=== PATIENT | male | born 1945 | race Caucasian/White ===

== ENCOUNTER 2018-04-11 14:21 | Inpatient (IN) ==
--- OUTSIDE RECORDS SUMMARY | 2018-04-11 14:51 | External Medical Summary | Clinical Summary ---
:1945 Author Organization [facility] Address [address] [place] [address] Care Team Providers Name Role Phone Zachariah Weiss MD Primary Care Provider Source Comments Some departments are not documenting in the electronic medical record. If you do not see the information that you expected, contact Release of Information in the Health Information Management department at [phone] for further assistance in locating additional records.[facility] Allergies Active Allergy Reactions Severity Noted Date Comments Adhesive RASH Medium 05/11/2017 Latex RASH, BLISTERS High 05/11/2017 Morphine ITCHING Low 05/11/2017 Tramadol SEE COMMENTS Low 05/11/2017 can't remember Current Medications Prescription Sig. Disp. Refills Start Date End Date Status baclofen (LIORESAL) 10 Take 10 mg by Active mg tablet mouth three times daily. bumetanide (BUMEX) 1 mg Take 1 mg by Active tablet mouth daily. cephalexin (KEFLEX) 250 Take 250 mg by Active mg capsule mouth daily. citalopram (CELEXA) 20 Take 20 mg by Active mg tablet mouth daily. ferrous sulfate Take 325 mg by Active (FEOSOL, FEROSUL) 325 mouth twice mg (65 mg iron) tablet daily. Take on an empty stomach at least 1 hour before or 2 hours after food. fluticasone (FLONASE) Apply to each Active 50 mcg/actuation nasal nostril as spray directed twice daily. Shake bottle gently before using. gabapentin (NEURONTIN) Take 300 mg by Active 300 mg capsule mouth at bedtime daily. gabapentin (NEURONTIN) Take 600 mg by Active 600 mg tablet mouth at bedtime daily. polyethylene glycol Take 17 g by Active 3350 (MIRALAX) 17 g mouth daily. packet other medication 1 Dose. GNP one Active daily mens w/lycopene HYDROcodone/acetaminoph Take 1 tablet by Active en (NORCO) 7.5/325 mg mouth every 6 tablet hours as needed for Pain levothyroxine Take 50 mcg by Active (SYNTHROID) 50 mcg mouth daily 30 tablet minutes before breakfast. metoprolol XL (TOPROL Take 25 mg by Active XL) 25 mg extended mouth twice release tablet daily. omeprazole DR(+) Take 20 mg by Active (PRILOSEC) 20 mg mouth daily capsule before breakfast. simvastatin (ZOCOR) 10 Take 10 mg by Active mg tablet mouth at bedtime daily. tamsulosin (FLOMAX) 0.4 Take 0.4 mg by Active mg capsule mouth daily. Do not crush, chew or open capsules. Take 30 minutes following the same meal each day. tolterodine(+) (DETROL) Take 2 mg by Active 2 mg tablet mouth twice daily. venlafaxine XR (EFFEXOR Take 75 mg by Active XR) 75 mg capsule mouth twice daily. Take with food. ERGOCALCIFEROL (VITAMIN Take by mouth. Active D2) (VITAMIN D PO) cholecalciferol Take 1,000 Units Active (VITAMIN D-3) 1,000 by mouth daily. units tablet warfarin (COUMADIN) 2 Take 2 mg by Active mg tablet mouth daily. wednesday warfarin (COUMADIN) 4 Take 4 mg by Active mg tablet mouth daily. Wed,wed,,wed, sat clonazePAM (KLONOPIN) 1 2 at bedtime 60 tablet 5 06/10/2017 Active mg tablet Active Problems Problem Noted Date Drug-induced dyskinesia 05/11/2017 Overview: This is a metoclopramide induced tardive dyskinesia, he had been on this medication for many years prior to be it being discontinued in 2016. Last Assessment & Plan: Formatting of this note may be different from the original. I discussed the diagnosis with the patient and his , explaining how medications that block dopamine can cause tardive dyskinesias, and the utility of treatments such as clonazepam and valbenazine (INGREZZA) along with potential side effects. While baclofen will not help his TD, he needs this for treatment of his spasticity. I suggest that because of the expense of valbenazine that his dose of clonazepam be increased to the point where he has either good benefit or unacceptable drowsiness before starting valbenazine at 40 m g a day for one week and then 80 mg a day thereafter. 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 He will follow-up with his health care providers closer to their home. Encounter Medications Medications baclofen (LIORESAL) 10 mg tablet Sig: Take 10 mg by mouth three times daily. bumetanide (BUMEX) 1 mg tablet Sig: Take 1 mg by mouth daily. cephalexin (KEFLEX) 250 mg capsule Sig: Take 250 mg by mouth daily. citalopram (CELEXA) 20 mg tablet Sig: Take 20 mg by mouth daily. DISCONTD: clonazePAM (KLONOPIN) 1 mg tablet Sig: Take 1 mg by mouth twice daily. Two hs ferrous sulfate (FEOSOL, FEROSUL) 325 mg (65 mg iron) tablet Sig: Take 325 mg by mouth twice daily. Take on an empty stomach at least 1 hour before or 2 hours after food. fluticasone (FLONASE) 50 mcg/actuation nasal spray Sig: Apply to each nostril as directed twice daily. Shake bottle gently before using. gabapentin (NEURONTIN) 300 mg capsule Sig: Take 300 mg by mouth at bedtime daily. gabapentin (NEURONTIN) 600 mg tablet Sig: Take 600 mg by mouth at bedtime daily. polyethylene glycol 3350 (MIRALAX) 17 g packet Sig: Take 17 g by mouth daily. other medication Si Dose. GNP one daily mens w/lycopene HYDROcodone/acetaminophen (NORCO) 7.5/325 mg tablet Sig: Take 1 tablet by mouth every 6 hours as needed for Pain levothyroxine (SYNTHROID) 50 mcg tablet Sig: Take 50 mcg by mouth daily 30 minutes before breakfast. metoprolol XL (TOPROL XL) 25 mg extended release tablet Sig: Take 25 mg by mouth twice daily. omeprazole DR(+) (PRILOSEC) 20 mg capsule Sig: Take 20 mg by mouth daily before breakfast. simvastatin (ZOCOR) 10 mg tablet Sig: Take 10 mg by mouth at bedtime daily. tamsulosin (FLOMAX) 0.4 mg capsule Sig: Take 0.4 mg by mouth daily. Do not crush, chew or open capsules. Take 30 minutes following the same meal each day. tolterodine(+) (DETROL) 2 mg tablet Sig: Take 2 mg by mouth twice daily. venlafaxine XR (EFFEXOR XR) 75 mg capsule Sig: Take 75 mg by mouth twice daily. Take with food. ERGOCALCIFEROL (VITAMIN D2) (VITAMIN D PO) Sig: Take by mouth. cholecalciferol (VITAMIN D-3) 1,000 units tablet Sig: Take 1,000 Units by mouth daily. warfarin (COUMADIN) 2 mg tablet Sig: Take 2 mg by mouth daily. wednesday warfarin (COUMADIN) 4 mg tablet Sig: Take 4 mg by mouth daily. Wed,wed,,wed,wed clonazePAM (KLONOPIN) 1 mg tablet Si/2 in the morning and 1 at bedtime Dispense: 45 tablet Refill: 5 Patient Instructions Please increase his clonazepam to 1/2 of a one mg pill in the morning and 1 in the evening. We will call in the prescription to your pharmacy I will send a letter to his doctors and to you about the other medication, valbenazine (INGREZZA), georger we discussed. Lumbar spondylosis with myelopathy 05/11/2017 Overview: Fusion T4 to pelvis in 2012 Last Assessment & Plan: His leg weakness is partially due to this. 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 No medical records were available for review at the time of this visit. He was admitted 18 month prior to this visit to [facility] for treatment of hyponatremia and there was some apparent controversy over the rate and method of correction. This was one of several admissions for hyponatremia. At that admission the movements began and he had increasing difficulty with the use of his hands and legs. Moderate episode of recurrent major depressive disorder (HCC) 05/11/2017 Family History Medical History Relation Name Comments Hypertension Father Dementia Maternal Aunt Hypertension Maternal Aunt Dementia Maternal Grandfather Dementia Mother Hypertension Mother Stroke Mother Parkinson's Sister Relation Name Status Comments Brother Alive Father Maternal Aunt Alive Maternal Grandfather Mother Sister Social History Tobacco Use Types Packs/Day Years Used Date Never Smoker Smokeless Tobacco: Never Used Alcohol Use Drinks/Week oz/Week Comments No Sex Assigned at Date Recorded Not on file Last Filed Vital Signs Vital Sign Reading Time Taken Blood Pressure 157/81 05/11/2017 8:42 AM CDT Pulse 61 05/11/2017 8:42 AM CDT Temperature - - Respiratory Rate - - Oxygen Saturation - - Inhaled Oxygen Concentration - - Weight 104.3 kg (230 lb) 05/11/2017 8:42 AM CDT Height 165.1 cm (5' 5") 05/11/2017 8:42 AM CDT Body Mass Index 38.27 05/11/2017 8:42 AM CDT Plan of Treatment Health Maintenance Due Date Last Done Comments HEPATITIS C SCREENING 1945 PHYSICAL (COMPREHENSIVE) EXAM 1954 PERTUSSIS VACCINE 1958 TETANUS VACCINE 01/12/1964 COLORECTAL CANCER SCREENING 1997 SHINGLES RECOMBINANT VACCINE (1 of 2) 1997 PNEUMONIA (PCV13/PPSV23) VACCINES (1 of 2 - PCV13) 01/12/2012 INFLUENZA VACCINE 06/20/2018
--- OUTSIDE RECORDS SUMMARY | 2018-04-11 14:58 | External Medical Summary ---
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 220124393052 disease), mild intermittent, uncomplicated Problem Unspecified asthma, J45.909 Active 988983225 uncomplicated Problem Raynauds disease I73.00 Active 567503415 without gangrene Problem Dysuria 788.1 Active 50273607 Problem Essential hypertension I10 Active 86893868 Problem Diabetes 1.5, 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 Problem Unspecified atrial I48.91 Active 608370411 fibrillation Problem DDD (degenerative disc M50.30 Active 58969284 disease), cervical Problem Renal insufficiency N28.9 Active 867155275 Problem halfway current use Z79.01 Active 332653038 of anticoagulant therapy Problem Hypothyroidism, E03.9 Active 80408618 unspecified Problem Depressive disorder, F32.9 Active 23905944 not elsewhere classified ALLERGIES No Information ENCOUNTERS Encounter Location Date Diagnosis [facility] [address], [facility] [place] [address] [facility] [address], [facility] [place] [address] [facility] [address] Mar, [facility] [place] [address] [facility] [address] Feb, [facility] [place] [address] [place] [address] [address] Feb, [facility] [place] [address] [place] [address] [address] Feb, [facility] [place] [address] [place] [address] [address] Feb, [facility] [place] [place] [address] [place] [address] [address] Feb, [facility] [place] [place] [address] [place] [address] [address] Feb, [facility] [place] [place] [address] [place] [address] [address] Feb, [facility] [place] [address] [place] [address] [address] Feb, [facility] [place] [id number] [place] [address] [address] Feb, [facility] [place] [address] [facility] [address] Feb, [facility] [place] [address] [place] [address] [address] Feb, [facility] [place] [id number] [place] [address] [address] Feb, [facility] [place] [place] [address] [place] [address] [address] January, [facility] [place] [id number] [place] [address] [address] January, [facility] [place] [id number] [place] [address] [address] January, [facility] [place] [place] [address] [place] [address] [address] January, [facility] [place] [address] [place] [address] [address] January, [facility] [place] [address] [facility] [address] January, Cellulitis of foot, right [facility] [place] 23367 L03.115 ; Diabetes 1.5, managed as type 1 E13.9 ; Renal insufficiency N28.9 and Hypothyroidism, unspecified E03.9 [facility] [address] January, [facility] [place] [address] [facility] [address] January, [facility] [place] [address]1403 [facility] [address] January, [facility] [place] [address] [facility] [address] January, Contusion of right foot, [facility] [place]212 initial encounter S90.31XA [facility] [address] January, [facility] [place] [address] [place] [address] [address] January, [facility] [place] [address] [place] [address] [address] Dec, [facility] [place] [address] [place] [address] [address] Dec, [facility] [place] [address] [place] [address] [address] Dec, [facility] [place] [place] [address] [place] [address] [address] Dec, [facility] [place] [address] [facility] [address] Dec, [facility] [place] [place] [address] [place] [address] [address] Dec, [facility] [place] [place] [address] [place] [address] [address] Dec, [facility] [place] [place] [address] [place] [address] [address] Dec, [facility] [place] [place] [address] [place] [address] [address] Dec, [facility] [place] [place] [address] [place] [address] [address] Nov, [facility] [place] [address] [place] [address] [address] Nov, Hyponatremia E87.1 [facility] [address] [place] [address] [address] Nov, [facility] [place] [place] [address] [place] [address] [address] Nov, [facility] [place] [place] [address] [place] [address] [address] Nov, [facility] [place] [address]5828 [facility] [address] 14 Nov, 2017 [facility] [place] [place] [address] [facility] [address] Nov, [facility] [place] [address] [place] [address] [address] Nov, Encounter for long-term [facility] [place] 87568 (current) use of anticoagulants V58.61 [facility] [address] 06 Nov, 2017 [facility] [place] [address] [place] [address] [address] Nov, [facility] [place] [id number] [place] [address] [address] Nov, [facility] [place] [address] [place] [address] [address] Oct, Urethral catheter present for [facility] [place]212 long-term use Z96.0 ; Upper respiratory tract infection, unspecified type J06.9 and Diabetes 1.5, managed as type 1 E13.9 [facility] [address] Oct, [facility] [place] [address] [facility] [address] Oct, [facility] [place] 230[address] [facility] [address] Oct, Encounter for long-term [facility] [place] [address]482 (current) use of anticoagulants V58.61 [facility] [address] Oct, [facility] [place] [address] [place] [address] [address] Oct, [facility] [place] [address] [facility] [address] Oct, [facility] [place] [address] [facility] [address] Sep, [facility] [place] [address] [facility] [address] Sep, [facility] [place] [address]80 [facility] [address] Sep, [facility] [address] [facility] [address] Sep, [facility] [place] [address] [facility] [address] Sep, [facility] [place] [address] [facility] [address] Sep, [facility] [place] [address] [facility] [address] Sep, [facility] [place] [address] [facility] [address] Sep, [facility] [place] [facility] [address] Sep, [facility] [place] [address] [facility] [address] Sep, [facility] [place]212 [facility] [address] Aug, [facility] [place] [address] [facility] [address] Aug, [facility] [place] [id number] [place] [address]ta Family [address] Aug, [facility] [place] [address] [place], [place] [address]ta Family [address] Aug, [facility] [place] [address] [place] [address] Family [address] Aug, [facility] [place] [id number] [place] [address]ta Family [address] Aug, [facility] [place] [facility] [address] Aug, [facility] [place] [address]23[address] [facility] [address] Jul, [facility] [place] [address]1501 [facility] [address] Jul, [facility] [place] 59608 [facility] [address] Jul, [facility] [place] 30823 [facility] [address] Jul, [facility] [place] 79087 [facility] [address] Jul, [facility] [place] [address]77 [facility] [address] Jun, Shortness of breath R06.02 and [facility] [place] [address] 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 [facility] [address] Jun, [facility] [place] [address] [facility] [address] Jun, [facility] [place] [address]94 [facility] [address] Jun, [facility] [place]212 [facility] [address] Jun, [facility] [place] 71759 [facility] [address] Jun, [facility] [place] [place] [facility] [address] Jun, [facility] [place] [facility] [address] Jun, [facility] [place]212 [facility] [address] Jun, [facility] [place] [facility] [address] Jun, [facility] [place] [id number] [place] [address] Family [address] May, [facility] [place] [address] [place] [address] [address] May, [facility] [place] [address] [place] [address] [address] May, Edema, unspecified type R60.9 [facility] [place] [place] [address]85 and Hyponatremia E87.1 [facility] [address] May, [facility] [place] [address] [place] [address] [address] May, [facility] [place] [address] [place] [address] [address] May, [facility] [place] [address] [place] [address] [address] May, [facility] [place] [address] [place] [address] [address] May, [facility] [place] [address] [facility] [address] May, [facility] [place] [address] [place] [address] [address] May, [facility] [place] [address] [place] [address] [address] 18 May, 2017 [facility] [place] [address] [facility] [address] 13 May, 2017 [facility] [place] [address] [place] [address] [address] May, [facility] [place] [address] [place] [address] [address] May, [facility] [place] [address] [facility] [address] May, [facility] [place]212 [facility] [address] Apr, [facility] [place] [address] [facility] [address] Apr, [facility] [place]212 [facility] [address] Apr, [facility] [place]212 [facility] [address] Apr, Paraplegia following spinal [facility] [place]212 cord injury G82.20 ; DDD (degenerative disc disease), cervical M50.30 and Diabetes 1.5, managed as type 1 E13.9 [facility] [address] Apr, [facility] [place] [id number] [place], [place] [address] [address] Apr, [facility] [place] [address] [place], [place] [address] [address] Apr, [facility] [place] [id number] [place], [place] [address] [address] Apr, [facility] [place] [address] [place], [place] [address] [address] Apr, [facility] [place] [address] [place], [place] [address] [address] Apr, [facility] [place] [id number] [place], [place] [address]ta Family [address] Apr, [facility] [place] [address] [place], [place] [address]ta Family [address] Apr, [facility] [place] [id number] [place] [address]ta [facility] [address] Mar, [facility] [place] [id number] [place] [address] [address] Mar, [facility] [place] [address] [place] [address] [address] Mar, [facility] [place] [address] [place], [place] [address] [address] Mar, [facility] [place] [id number] [place] [address]ta [facility] [address] Mar, [facility] [place] [id number] [place] [address] Family [address] Mar, [facility] [place] [id number] [place] [address]ta Family [address] Feb, [facility] [place] [id number] [place] [address]ta Family [address] Feb, [facility] [place] [place], [place] [address] [address] Feb, [facility] [place]212 [facility] [address] Feb, [facility] [place]212 [facility] [address] Feb, [facility] [place] [facility] [address] Feb, [facility] [place] [facility] [address] Feb, [place] [address] [facility] [address] January, [facility] [place] [address]474 [facility] [address] January, [facility] [place] [address] [facility] [address] January, [facility] [place] 58486 [facility] [address] January, [facility] [place] 15981 [facility] [address] January, [facility] [place] 46455 [facility] [address] January, [facility] [place] 33793 [facility] [address] Dec, [facility] [place] 31943 [facility] [address] Dec, [facility] [place] 84428 [facility] [address] Dec, [facility] [place] 15585 [facility] [address] Dec, [facility] [place] 33399 [facility] [address] Dec, [facility] [place] 84203 [facility] [address] Dec, [facility] [place] 66593 [facility] [address] Nov, [facility] [place] 42132 [facility] [address] Nov, [facility] [place] 49459 [facility] [address] Nov, [facility] [place] 69919 [facility] [address] Nov, [facility] [place] 90576 [facility] [address] Nov, [facility] [place] 39058 [facility] [address] Nov, [facility] [place] 37512 [facility] [address] Nov, [facility] [place] 85427 [facility] [address] Nov, [facility] [place] 20840 [facility] [address] Oct, [facility] [place] 72871 [facility] [address] Oct, [place] [address] [place] [address] [address] Oct, [facility] [place] [id number] [place] [address] [address] Oct, [facility] [place] [address] [place] [address] [address] Oct, [facility] [place] [address] [place] [address] [address] Oct, [facility] [place] [address] [place] [address] [address] Oct, [facility] [place] [address] [place] [address] [address] Oct, Bronchitis J40 and RAD [facility] [place] 80044 (reactive airway disease), mild intermittent, uncomplicated J45.20 [facility] [address] Oct, [facility] [place] [address] [place] [address] [address] Oct, [facility] [place] [id number] [place] [address] [address] Sep, [facility] [place] [address] [place] [address] [address] Sep, [facility] [place] [address] [place] [address] [address] Sep, [facility] [place] 19455 [facility] [address] Sep, [facility] [place] [address] [place] [address] [address] Sep, [facility] [place] [id number] [place] [address] [address] Sep, [facility] [place] 78716 [facility] [address] Aug, [facility] [place] 02934 [facility] [address] Aug, [facility] [place] 61062 [facility] [address] Aug, [facility] [place] 45025 [facility] [address] Aug, [facility] [place] 84080 [facility] [address] Aug, [facility] [place] 62824 [facility] [address] Aug, Near syncope R55 and Diabetes [facility] [place] 1.5, managed as type 1 E13.9 [facility] [address] Aug, [facility] [place] 61910 [facility] [address] Aug, [facility] [place] 74033 [facility] [address] Aug, [facility] [place] [id number] [place], [place] [address] [address] Aug, [facility] [place] [id number] [place] [address] [address] Aug, [facility] [place] [id number] [place] [address]ta Family [address] Aug, [facility] [place] [id number] [place] [address] [facility] [address] Aug, [facility] [place] [id number] [place], [place] [address] [address] Jul, [facility] [place] [id number] [place] [address] [address] Jul, [facility] [place] [id number] [place] [address] [address] Jul, [facility] [place] [address] [place] [address] [address] Jul, [facility] [place] [id number] [place] [address] [address] Jul, [facility] [place] [id number] [place] [address] [address] Jul, [facility] [place] [address] [place] [address]ta Family [address] Jul, [facility] [place] [id number] [place] [address] [address] 16 Jul, 2016 [facility] [place] [id number] [place], [place] [address] [address] 15 Jul, 2016 [facility] [place] [address] [place], [place] [address] [address] Jul, [facility] [place] [address] [place] [address] [address] Jul, [facility] [place] [id number] [place] [address] [address] Jul, [facility] [place] [id number] [place] [address] [address] Jul, [facility] [place] [id number] [place] [address] [address] Jul, [facility] [place] [id number] [place] [address]ta Family [address] Jul, [facility] [place] 23201 [facility] [address] Jul, 2015 [facility] [place] 30961 [facility] [address] Jul, [facility] [place] 16292 [facility] [address] Jul, [facility] [place] [id number] [place] [address] [address] Jun, 2015 [facility] [place] 95069 [facility] [address] Jun, 2016 [facility] [place] 90534 [facility] [address] Jun, 2015 [facility] [place] 93688 [facility] [address] Jun, 2015 [facility] [place] 26308 [facility] [address] 14 Jun, 2015 [facility] [place] 72109 [facility] [address] Jun, 2015 [facility] [place] 87031 [facility] [address] Jun, 2015 [facility] [place] 10977[facility] [address] 30 May, 2016 [facility] [place] 51021 [facility] [address] 30 May, 2016 [facility] [place] 71003 [facility] [address] 23 May, 2016 [facility] [place] [id number] [place], [place] [address] [address] 22 May, 2016 [facility] [place] [id number] [place] [address] [address] May, 2016 [facility] [place] 31075 [facility] [address] 20 May, 2016 [facility] [place] 43527 [facility] [address] 16 May, 2016 [facility] [place] 30815 [facility] [address] 09 May, 2016 [facility] [place] 17609 [facility] [address] 07 May, 2016 [facility] [place] 30432 [facility] [address] 06 May, 2016 [facility] [place] 44373 [facility] [address] May, [address] [place] [address]ta [facility] [address] May, [facility] [place] 53089 [facility] [address] May, [facility] [place] 69863 [facility] [address] May, [facility] [place] [id number] [place] [address] Family [address] Apr, [facility] [place] [id number] [place] [address] Family [address] Apr, [facility] [place] [id number] [place] [address] Family [address] Apr, [facility] [place] [id number] [place] [address] Family [address] Apr, [facility] [place] 44119 [facility] [address] Apr, Encounter for long-term [facility] [place] 81374 (current) use of anticoagulants V58.61 and Abnormal laboratory test R89.9 [facility] [address] Apr, [facility] [place] 09010 [facility] [address] Apr, [facility] [place] 02573 [facility] [address] Apr, [facility] [place] 00149 [facility] [address] Apr, [facility] [place] 40982 [facility] [address] Apr, Phys[facility] [place] 59174 [facility] [address] Apr, [facility] [place] 58366 [facility] [address] Apr, [facility] [place] 33256 [facility] [address] Apr, [facility] [place] 75337 [facility] [address] Mar, [facility] [place] 46317 [facility] [address] Mar, [facility] [place] 63545 [facility] [address] Mar, [facility] [place] 52987 [facility] [address] Mar, [facility] [place] 09576 [facility] [address] Mar, [facility] [place] [facility] [address] Mar, [facility] [place] [id number] [place] [address] [address] Mar, [facility] [place] [id number] [place] [address]ta Family [address] Mar, Paraplegia following spinal [facility] [place] 38107 cord injury G82.20 ; Essential hypertension I10 ; Unspecified atrial fibrillation I48.91 and Diabetes 1.5, managed as type 1 E13.9 [facility] [address] Mar, [facility] [place] [id number] [place] [address]ta Family [address] Feb, [facility] [place] [id number] [place] [address]ta Family [address] Feb, [facility] [place] 51239 [facility] [address] Feb, [facility] [place] [id number] [place] [address] Family [address] Feb, [facility] [place] 33927 [facility] [address] Feb, [facility] [place] [id number] [place] [address]ch[facility] [address] Feb, [facility] [place] [id number] [place] [address] Family [address] Feb, [facility] [place] [id number] [place] [address]ta Family [address] Feb, [facility] [place] [id number] [place] [address] Family [address] Feb, [facility] [place] [id number] [place] [address] Family [address] Feb, [facility] [place] [id number] [place], [place] [address] [address] Feb, [facility] [place] 76904 [facility] [address] Feb, [facility] [place] 19549 [facility] [address] Feb, [facility] [place] 49485 [facility] [address] Feb, [facility] [place] 92864 [facility] [address] January, [facility] [place] 37227 [facility] [address] January, [facility] [place] [facility] [address] January, [facility] [place] 17877 [facility] [address] January, [facility] [place] 69641 [facility] [address] January, [facility] [place] 21490 [facility] [address] January, [facility] [place] 96998 [facility] [address] January, [facility] [place] 72584 [facility] [address] January, [facility] [place] 67701 [facility] [address] January, [facility] [place] 78146 [facility] [address] January, [facility] [place] 53692 [facility] [address] January, [facility] [place] 92235 [facility] [address] Dec, [facility] [place] 65343 [facility] [address] Dec, [facility] [place] 77388 [facility] [address] Dec, [facility] [place] 21322 [facility] [address] 15 Dec, 2015 [facility] [place] 87422 [facility] [address] Dec, [facility] [place] 36802 [facility] [address] Dec, [facility] [place] 86324 [facility] [address] Dec, [facility] [place] 36693 [facility] [address] Dec, [facility] [place] 66606 [facility] [address] Dec, Physicians [place] [address] [facility] [address] Dec, Physicians [place] [address] [facility] [address] Nov, Physicians [place] 11301 [facility] [address] Nov, Physicians [place] 76816 [facility] [address] Nov, Physicians [place]212 [facility] [address] 18 Nov, 2015 [facility] [place] 80168 [facility] [address] 15 Nov, 2015 [facility] [place] 05297 [facility] [address] 14 Nov, 2015 [facility] [place] [address]96[address] [facility] [address] Nov, 2015 [facility] [place] 75693 [facility] [address] 14 Nov, 2015 [facility] [place] 13905 [facility] [address] Nov, 2015 Physicians [place] 93337 [facility] [address] Nov, Physicians [place] 75337 [facility] [address] Nov, Physicians [place] [id number] [place] [address] [address] Nov, Physicians [place] 944[address] [address] Nov, Physicians [place] 62990 [facility] [address] Oct, 2015 Physicians [place] 14631 [facility] [address] Oct, 2015 Physicians [place] 32249 [facility] [address] Oct, 2015 [facility] [place] 66595 [facility] [address] Oct, 2015 Physicians [place] 93117 [facility] [address] Oct, 2015 Physicians [place] 65176 [facility] [address] Oct, 2015 [facility] [place] 84410 [facility] [address] Oct, 2015 [facility] [place] 39228 [facility] [address] Oct, 2015 [facility] [place] 40856 [facility] [address] Oct, 2015 Physicians [place] [id number] [place], [place] [address] [address] Oct, 2015 Physicians [place] [id number] [place], [place] [address] [address] Oct, 2015 [facility] [place] [address] [place] [address] [address] Oct, [facility] [place] [address] [place] [address] [address] Sep, [facility] [place] [address] [place] [address] [address] Sep, [facility]icians [place] [address] [place] [address] [address] Sep, DDD (degenerative disc Physicians [facility] disease), cervical M50.30 ; Diabetes 1.5, managed as type 1 E13.9 and Otitis externa H60.90 [facility] [address] Sep, Physicians [place] [address] [place] [address] [address] Sep, Physicians [place] [address] [place] [address] [address] Sep, [facility]icians [place] [address] [place] [address] [address] Sep, Physicians [place] [address] [place] [address] [address] Sep, Physicians [place] [address] [place] [address] [address] Sep, [facility]icians [place] [address] [place] [address] [address] Sep, [facility]icians [place] [address] [place] [address] [address] Sep, Physicians [place] [address] [place] [address] [address] Sep, [facility]icians [place] [address] [place] [address] [address] Sep, Physicians [place] [address] [place] [address] [address] Sep, Physicians [place] [address] [place] [address] [address] Sep, Glossitis K14.0 and Aphthous Physicians [facility] [facility] ulcer K12.0 [facility] [address] Sep, Physicians [place] [address] [place] [address] [address] Sep, Physicians [place] [address] [place] [address] [address] Sep, [facility]icians [place] [address] [place] [address] [address] Sep, [facility]icians [place] [address] [place] [address] [address] Sep, Physicians [place] [address] [place] [address] [address] Aug, Physicians [place] 45378 [facility] [address] Aug, Physicians [place] 20994 [facility] [address] Aug, Physicians [place] [address] [place] [address] [address] Aug, Physicians [place] [address] [place] [address] [address] Aug, Physicians [place] 74652 [facility] [address] Aug, Physicians [place] [address]50 [facility] [address] Aug, Diabetes 1.5, managed as type 1 Physicians [place] 13035 E13.9 ; Renal insufficiency N28.9 ; DDD (degenerative disc disease), cervical M50.30 ; Hypothyroidism, unspecified E03.9 ; long term current use of anticoagulant therapy Z79.01 ; Essential hypertension I10 ; Unspecified asthma, uncomplicated J45.909 ; Pure hypercholesterolemia E78.0 ; 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 and Depressive disorder, not elsewhere classified F32.9 [facility] [address] Jul, Physicians [place] 46728 [facility] [address] Jul, Physicians [place] 46222 [facility] [address] Jul, Physicians [place] 96461 [facility] [address] Jul, Physicians [place] 63571 [facility] [address] Jun, Physicians [place] 71070 [facility] [address] Jun, Physicians [place]212 [facility] [address] Jun, Physicians [place] 24424 [facility] [address] Jun, Physicians [place] 28276 [facility] [address] Jun, Physicians [place]212 [facility] [address] Jun, Physicians [place] [id number] [place], [place] [address]ta Family [address] Jun, Physicians [place] [address] [place], [place] [address]ta Family [address] 14 May, 2015 Physicians [place] [address] [place], [place] [address]ta Family [address] May, Physicians [place] [address] [place], [place] [address]ta Family [address] May, Physicians [place] [address] [place], [place] [address]ta Family [address] May, Physicians [place] [address] [place], [place] [address]ta Family [address] May, Physicians [place] [address] [place] [address] [address] May, Chronic back pain 724.5 Physicians [place] [address] [place], [place] [address]ta Family [address] Apr, Physicians [place] [address] [place], [place] [address]ta Family [address] Apr, Physicians [place] [address] [place] [address]ta Family [address] Apr, Physicians [place] [address] [place] [address] Family [address] Apr, Physicians [place] [address] [place] [address] Family [address] Apr, Physicians [place] [address] [place] [address] [address] Apr, Physicians [place] [address] [place] [address] [address] Mar, Physicians [place] [address] [place] [address] Family [address] Mar, Chronic back pain 724.5 [facility]icians [place] [address] [place] [address] Family [address] Mar, Physicians [place] [address] [place] [address] Family [address] Mar, Occult blood in stools 792.1 Physicians [place] 27440 [facility] [address] Feb, Occult blood in stools 792.1 Physicians [place] 05084 [facility] [address] Feb, Occult blood in stools 792.1 [facility]icians [place] [address] [place] [address] [address] Feb, Physicians [place] [id number] [place] [address] [address] Feb, Diarrhea 787.91 Physicians [place] [id number] [place] [address]ta Family [address] Feb, Physicians [place] [id number] [place] [address] [facility] [address] Feb, Diarrhea 787.91 Physicians [place] [id number] [place] [address] [facility] [address] Feb, Physicians [place] [id number] [place] [address] [facility] [address] Feb, Physicians [place] [id number] [place] [address] [facility] [address] Feb, Physicians [place] [address] [place] [address] [facility] [address] Feb, Physicians [place] [id number] [place] [address] [facility] [address] January, Physicians [place] [id number] [place] [address] [facility] [address] January, Physicians [place] [id number] [place] [address] [facility] [address] January, Physicians [place] [id number] [place], [place] [address]ta Family [address] January, Physicians [place] [id number] [place] [address] [facility] [address] January, Physicians [place] [id number] [place] [address] [facility] [address] Dec, Physicians [place] [address] [place] [address] [address] Dec, Physicians [place] [id number] [place], [place] [address] [address] Dec, Physicians [place] [address] [place], [place] [address]ta Family [address] Dec, Physicians [place] [id number] [place], [place] [address] [address] Dec, [facility] [place] 95702 [facility] [address] Dec, [facility] [place] 76937 [facility] [address] Nov, [facility] 42433 [facility] [address] Nov, Physicians [place] 28686 [facility] [address] 18 Nov, 2014 [facility] [place] [address] [place] [address] Family [address] Nov, Physicians [place] [address] [place] [address] Family [address] Nov, Physicians [place] [address] [place] [address] [address] Nov, Physicians [place] [address] [place] [address] [address] Nov, Physicians [place] [address] [place] [address] Minor [address] Nov, [facility] [place] [address] [facility] [address] Nov, Pneumonitis [address] [place] [address] [facility] Family [address] Oct, Physicians [place] [address] [place] [address] [address] Oct, Physicians [place] [address] [place] [address] Family [address] Oct, Physicians [place] [address] [place] [address] Family [address] Oct, Physicians [place] [address] [place] [address] [address] Oct, Physicians [place] [address] [place] [address] [address] Oct, Physicians [place] [address] [place] [address] [address] Oct, Physicians [place] [address] [place] [address] [address] Oct, Physicians [place] [address] [place] [address] [address] Oct, Physicians [place] [address] [place] [address] [address] Sep, Physicians [place] [address] [place] [address] [address] Sep, Physicians [place] [address] [place] [address] [address] Sep, Physicians [place] [address] [place] [address] [address] Sep, Physicians [place] [address] [place] [address] [address] Sep, DDD (degenerative disc disease) Physicians [place]212 722.6 ; Diabetes 1.5, 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 ; Renal insufficiency 593.9 ; Hypertension 401.9 and 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 [facility] [address] Sep, Physicians [place] 94702 [facility] [address] Sep, Physicians [place] [address] [place], [place] [address]ta Family [address] Sep, Physicians [place] [address] [place], [place] [address] Family [address] Sep, Physicians [place] [address] [place] [address]ta Family [address] Sep, [facility] [address] [facility] [address] Sep, Physicians [place] 95438 [facility] [address] Sep, Physicians [place] [address] [place] [address]ta Family [address] Sep, Physicians [place] [address] [place] [address]ta Family [address] Sep, Physicians [place] [address] [place] [address]ta Family [address] Sep, Physicians [place] [address] [place] [address]ta Family [address] Aug, Physicians [facility] 76891 [facility] [address] Aug, Physicians [place] [address] [place] [address]ta Family [address] Aug, Physicians [place] [address] [place] [address]ta Family [address] Aug, Physicians [place] [address] [place] [address]ta Family [address] Aug, [facility] 81382 [facility] [address] Aug, Physicians [place] 05340 [facility] [address] Aug, Physicians [facility]212 [facility] [address] Aug, Physicians [facility] [address] Jul, [facility] [address] Jul, Physicians [place] [facility] [address] Jul, Cough 786.2 [place] [address] [facility] [address] Jul, Physicians [place] [address] [place] [address] 8200 [facility] Jul, Physicians [place] [address] [place] [address] 8200 [facility] Jul, Physicians [place] [address] [place] [address] 8200 [facility] Jul, Physicians [place] [address] [place] [address] 8200 [facility] Jul, Physicians [place] [address] [place] [address] 8200 [facility] Jul, Physicians [place] [address] [place] [address] 8200 [facility] Jul, Physicians [place] [address] [place] [address] 8200 [facility] Jul, Physicians [place] [address] [place] [address] 8200 [facility] Jul, Physicians [place] [address] [place] [address] 8200 [facility] Jul, Physicians [place] [address] [place] [address] 8200 [facility] Jul, Physicians [place] [address] [place] [address] 8200 [facility] Jun, DDD (degenerative disc disease) Physicians [place] [place] [facility] 722.6 ; Diabetes 1.5, 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 ; 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 ; Renal insufficiency 593.9 ; A-fib 427.31 and Encounter for long-term (current) use of anticoagulants V58.61 [facility] [address] Jun, Physicians [place] [address]871 [facility] 8200 [facility] Jun, Physicians [place] 78231 [facility] 8200 [facility] Jun, Physicians [place] 05[address] [facility] 8200 [facility] Jun, Physicians [place] 29306 [facility] 8200 [facility] May, Physicians [place] 31196 [facility] [address] [place] [address] May, A-fib 427.31 and Encounter for Physicians [place] long-term (current) use of anticoagulants V58.[address] May, A-fib 427.31 and Encounter for Physicians [place] long-term (current) use of anticoagulants V58.[address] May, Physicians [place] [address] May, Physicians [place] [address] May, A-fib 427.31 and Encounter for Physicians [place] long-term (current) use of anticoagulants V58.[address] May, A-fib 427.31 ; Encounter for Physicians [place] long-term (current) use of anticoagulants V58.61 and Hypothyroid 244.[address] May, Physicians [place] [address] May, Physicians [place] [address] May, Hypothyroid 244.9 ; A-fib Physicians [place] 427.31 and Encounter for long-term (current) use of anticoagulants V58.[address] May, Contusion of foot 924.20 ; Physicians [place] A-fib 427.31 ; Encounter for long-term (current) use of anticoagulants V58.61 ; Hypothyroid 244.9 ; Diabetes 1.5, 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 ; Anemia 285.9 and Hypokalemia [address] Apr, Physicians [place] [address] Apr, Physicians [place] [address] Apr, Physicians [place] [address] Apr, Physicians [place] [address] Apr, Physicians [place] [address] Apr, A-fib 427.31 and Encounter for Physicians [place] long-term (current) use of anticoagulants V58.[address] Apr, Physicians [place] [address] Apr, Anemia 285.9 ; A-fib 427.31 and Physicians [place] Hypokalemia [address] Apr, Physicians [place] [address] Apr, Physicians [place] [address] Apr, A-fib 427.31 and Anemia 285.9 Physicians [place] [address] Apr, Contusion of foot 924.20 ; Physicians [place] Encounter for long-term (current) use of anticoagulants V58.61 ; Hypothyroid 244.9 ; A-fib 427.31 ; Hypokalemia 276.8 ; Anemia 285.9 and Diabetes 1.5, 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 Mar, Diabetes 1.5, managed as type 1 Physicians [place] 250.00 ; Encounter for long-term (current) use of anticoagulants V58.61 ; Hypothyroid 244.9 and A-fib 427.[address] Mar, Contusion of foot 924.20 ; Physicians [place] Anemia 285.9 ; Encounter for long-term (current) use of anticoagulants V58.61 ; A-fib 427.31 and Low blood potassium 276.[address] Mar, Right foot pain 729.5 Physicians [place] [address] Mar, Physicians [place] [address] Mar, Physicians [place] [address] Mar, Physicians [place]212 [facility] [address] [place] [address] Mar, Physicians [place]212 [address] Mar, Physicians [place]212 [address] Mar, Physicians [place]212 [facility] [address] [place] [address] Mar, Hypothyroid 244.9 Physicians [place]212 [address] Mar, Physicians [place]212 [address] Mar, Encounter for long-term Physicians [place] (current) use of anticoagulants V58.61 and A-fib 427.[address] Mar, Encounter for long-term Physicians [place] (current) use of anticoagulants V58.61 and A-fib 427.[address] Feb, Physicians [place]212 [address] Feb, Physicians [place]212 [facility] [address] [place] [address] Feb, Encounter for long-term Physicians [place] (current) use of anticoagulants V58.61 and A-fib 427.[address] Feb, A-fib 427.31 ; Encounter for Physicians [place] long-term (current) use of anticoagulants V58.61 and Diabetes 1.5, 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 [place] [address] [address] Feb, A-fib 427.31 and Encounter for Physicians [place] long-term (current) use of anticoagulants V58.[address] Feb, Physicians [place] [address] Feb, Encounter for long-term Physicians [place] (current) use of anticoagulants V58.61 ; A-fib 427.31 and Diabetes 1.5, 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 Feb, Physicians [place] [address] Feb, A-fib 427.31 ; Encounter for Physicians [place] long-term (current) use of anticoagulants V58.61 and Anemia 285.[address] January, Anemia 285.9 Physicians [place] [address] January, A-fib 427.31 and Encounter for Physicians [place] long-term (current) use of anticoagulants V58.[address] January, Anemia 285.9 ; Diabetes 1.5 , Physicians [place] 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 ; DDD (degenerative disc disease) 722.6 ; Hypertension 401.9 ; Encounter for long-term (current) use of anticoagulants V58.61 ; A-fib 427.31 ; Lethargy 780.79 and Pyuria 791.[address] January, Physicians [place] [address] January, A-fib 427.31 and Encounter for Physicians [place] long-term (current) use of anticoagulants V58.[address] January, Encounter for long-term Physicians [place] (current) use of anticoagulants V58.61 ; A-fib 427.31 ; Diabetes 1.5, 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 ; DDD (degenerative disc disease) 722.6 ; Hypertension 401.9 ; Anemia 285.9 ; Lethargy 780.79 and Pyuria 791.[address] January, Physicians [place] [address] January, Physicians [place] [address] January, Physicians [place] [address] Dec, Physicians [place] [address] Dec, Physicians [place] [address] Dec, Diabetes 1.5, managed as type 1 Physicians [place] 250.00 ; DDD (degenerative disc disease) 722.6 ; Hypertension 401.9 ; Lethargy 780.79 and Pyuria 791.[address] Dec, Physicians [place] [address] Dec, Encounter for long-term Physicians [place] (current) use of anticoagulants V58.61 ; Anemia 285.9 and A-fib 427.[address] Dec, Physicians [place] [address] Dec, Encounter for long-term Physicians [place] (current) use of anticoagulants V58.61 ; A-fib 427.31 and Anemia 285.[address] Dec, Anemia 285.9 Physicians [place] [address] Dec, Physicians [place] [address] Dec, Encounter for long-term Physicians [place] (current) use of anticoagulants V58.61 and A-fib 427.[address] Dec, A-fib 427.31 and Encounter for Physicians [place] long-term (current) use of anticoagulants V58.[address] Dec, Physicians [place] [address] Dec, Physicians [place] [address] Dec, Renal insufficiency 593.9 and Physicians [place] A-fib 427.[address] Dec, Physicians [place] [address] Dec, Physicians [place] [address] Nov, Stool color abnormal 792.1 Physicians [place] [id number] [place] [address] [address] Nov, Physicians [place] [id number] [place] [address] [address] Nov, Stool color abnormal 792.[address] [place] [address] [address] Nov, Dysuria 788.1 and Pyuria 791.[address] [address] [place] [address] [address] Nov, Dysuria 788.1 Physicians [place] [address] [place] [address] [address] Nov, Physicians [place] [id number] [place] [address] [address] Oct, Physicians [place] [address] [place] [address] [address] Oct, Physicians [place] [id number] [place] [address] [address] Oct, Physicians [place] [address] [place] [address] [address] Oct, Physicians [place] [id number] [place] [address] [address] Oct, Physicians [place] [address] [place] [address] [address] Oct, Hyponatremia 276.1 and Physicians [place] [facility] Confusion 298.9 [facility] [address] Sep, Physicians [place] [id number] [place] [address] [address] Sep, Dysuria 788.1 and Physicians [place] [facility] Hallucinations 780.1 [facility] [address] Sep, Physicians [place] [address] [facility] [address] Sep, Physicians [place] [address] [facility] [address] Sep, Physicians [place]212 [facility] [address] Sep, Physicians [place] [address] [facility] [address] Sep, Chronic back pain 724.5 ; DDD Physicians [place] (degenerative disc disease) 722.6 ; Diabetes 1.5, 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 ; Hypercholesterolemia 272.0 ; Renal insufficiency 593.9 ; Asthma 493.90 ; Hypertension 401.9 and Pyuria 791.9 [facility] [address] Sep, [facility] [place] [address] [facility] [address] Sep, Phys[facility] [place] [address] [facility] [address] Sep, Phys[facility] [place] 40110 [facility] [address] Aug, [facility] [place] 24405 [facility] [address] Aug, Phys[facility] [place] 31261 [facility] [address] Aug, Phys[facility] [place] 95029 [facility] [address] Aug, Physicians [place] [id number] [place], [place] [address]chita Family [address] Aug, Phys[facility] [place] [address] [facility] [address] Aug, [facility] [place] [address]7920 [facility] [address] Jul, Phys[facility] [place] 66610 [facility] [address] Jul, Phys[facility] [place] 39932 [facility] [address] Jul, Phys[facility] [place] 04162 [facility] [address] Jul, Phys[facility] [place] 53705 [facility] [address] Jul, Physicians [place] 21174 [facility] [address] Jul, Phys[facility] [place] 40159 [facility] [address] Jul, Physicians [place] 92250 [facility] [address] Jun, Physicians [place] 27541 [facility] [address]200 [address] Jun, [facility] [address] [facility] [address] Jun, [facility]212 [facility] [address] Jun, Chronic back pain 724.5 ; DDD [facility] [place] [address]24 (degenerative disc disease) 722.6 ; Diabetes 1.5, 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 ; Depression 311 and Renal insufficiency 593.9 [facility] [address] Jun, [facility] [address] Jun, [facility] [place] [address] Jun, Physicians [place]212 [facility] [address] Jun, Physicians [place] [place]212 [facility] [address] Jun, Lethargy 780.79 ; DDD [facility] (degenerative disc disease) 722.6 ; Diabetes 1.5, 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 ; Hypercholesterolemia 272.0 ; Renal insufficiency 593.9 and Pyuria 791.9 [facility] [address] Jun, [facility] [place] [place]212 [facility] [address] Jun, [facility]icians [place] [place]212 [facility] [address] May, [facility] [place]212 [facility] [address] May, [facility]icians [place]212 [facility] [address] May, [facility] [place] [address] [facility] [address] May, DDD (degenerative disc disease) [facility] 722.6 ; Diabetes 1.5, 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 and Depression 311 [facility] [address] May, [facility] [address] May, [facility] [place] [facility] [address] May, [facility] [place] [facility] [address] May, [facility] [place] [facility] [address] Apr, [facility] [address] Apr, [facility] [address] [facility] [address] Apr, [facility] [place] [address] [facility] [address] Apr, [facility] [place] [address] [facility] [address] Apr, [facility] [place] [address] [facility] [address] Apr, [facility] [address] [facility] [address] Apr, [facility] [place] [place] [address] [facility] [address] Apr, [facility] [place] [address] [facility] [address] Mar, [facility] [place] [place] [address] [facility] [address] Mar, [facility] [place] [address] [facility] [address] Mar, [facility] [place] [address] [facility] [address] Mar, DDD (degenerative disc disease) [facility] [place] [address] 722.6 ; Diabetes 1.5, 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 ; Depression 311 ; 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 and Hypercholesterolemia 272.0 [facility] [address] Mar, [facility] [place] [place] [address] [facility] [address] Mar, [facility] [place] [address] [facility] [address] Mar, [facility] [place] [place] [address] [facility] [address] Mar, [facility] [place] [place] [address] [facility] [address] Feb, [facility] [place] [place] [address] [facility] [address] Feb, [facility] [place] [address] [facility] [address] Feb, [facility] [place] [place] [address] [facility] [address] Feb, [facility] [place] [place] [address] [facility] [address] Feb, [place] [address] [facility] [address] Feb, [facility] [place] [address] [facility] [address] Feb, [facility] [place] [address] [facility] [address] Feb, [facility] [place] [address] [facility] [address] Feb, [facility] [place] [address] [facility] [address] Feb, [facility] [place] [address] [facility] [address] Feb, [facility] [place] [address] [facility] [address] January, [facility] [place] [address] [facility] [address] January, [facility] [place] [address] [facility] [address] January, [facility] [place] [address] [facility] [address] January, [facility] [place] [address] [facility] [address] January, [facility] [place] [address] [facility] [address] January, [facility] [place] [address] [facility] [address] Dec, [facility] [place] [address] [facility] [address] Dec, [facility] [place] [address] [facility] [address] Dec, [facility] [place] [address] [facility] [address] Dec, [facility] [place] [address] [facility] [address] Dec, Diabetes 1.5, managed as type 1 [facility] [place] [place] [address]326 250.00 ; 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 ; Hypercholesterolemia 272.0 and Chronic back pain 724.5 [facility] [address] Dec, [facility] [place] [address] [facility] [address] Dec, [facility] [place] [address] [facility] [address] Dec, [facility] [place] [address] [facility] [address] Nov, [facility] [place] [address] [facility] [address] Nov, [facility] [place] [address] [facility] [address] Nov, [facility] [place] [id number] [place] [address] [address] Nov, [facility] [place] [address] [facility] [address] Nov, [facility] [place] [place] [address] [facility] [address] Nov, [facility] [place] [address] [facility] [address] Nov, [facility] [place] [address] [facility] [address] Oct, [facility] [place] [address] [facility] [address] Oct, [facility] [place] [address] [facility] [address] Oct, [facility] [place] [address] [facility] [address] Oct, [facility] [place] [address] [facility] [address] Oct, [facility] [place] [address] [facility] [address] Oct, [facility] [place] [address] [facility] [address] Oct, Paraplegia 344.1 ; Diabetes [facility] [place] 33139 1.5, 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 ; Edema 782.3 and UTI (lower urinary tract infection) 599.0 [facility] [address] Oct, [facility] [place] [address] [facility] [address] Oct, [facility] [place] [address] [facility] [address] Oct, [facility] [place] [address] [facility] [address] Oct, Physicians [place]212 [facility] [address] Oct, Physicians [place]212 [facility] [address] Sep, [facility] [address] Sep, [facility] [place] [address] [facility] [address] Sep, [facility] [place] [id number] [place], [place] [address] [address] Sep, [facility] [place] [address] [facility] [address] Sep, [facility] [place] [address] [facility] [address] Sep, [facility] [place] [address] [facility] [address] Sep, [facility] [place] [address] [facility] [address] Sep, [facility] [place] [address] [facility] [address] Aug, [facility] [facility] [address] [facility] [address] Aug, [facility] [place] [address] [facility] [address] Aug, [facility] [place] [address] [facility] [address] Aug, [facility] [place] [address] [facility] [address] Aug, [facility] [place] [address] [facility] [address] Aug, [facility] [place] [address] [facility] [address] Aug, [facility] [place] [address] [facility] [address] Aug, [facility] [place] [address] [facility] [address] Aug, [facility] [place] [address] [facility] [address] Aug, [facility] [place] [address] [facility] [address] Aug, Chronic back pain 724.5 ; DDD [facility] [place] [address]28 (degenerative disc disease) 722.6 ; Diabetes 1.5, 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 and Depression 311 [facility] [address] Aug, [facility] [place] [address] [facility] [address] Aug, [facility] [address] Aug, [facility] [place] [address] [facility] [address] [place] [address] Jul, [facility] [place] [address] Jul, [facility] [place] [address] [facility] [address] [facility] May, [facility] [place] [address] Aug, Physicians [place] [address] IMMUNIZATIONS No Known Immunizations SOCIAL HISTORY Never Assessed REASON FOR VISIT INR PLAN OF CARE VITAL SIGNS MEDICATIONS Unknown Medications RESULTS No Results PROCEDURES No Known procedures INSTRUCTIONS MEDICATIONS ADMINISTERED No Known Medications MEDICAL (GENERAL) HISTORY Type Description Date Medical History long hx of DDD and multilple surgeries and injuries to the back. Medical History depression. Medical History anemia Medical History Arthritis Medical History asthma Medical History diabetes mellitus Medical History hypertension Medical History hyperlipidemia Medical History diabetic eye exam 01/02 Surgical History 10 BACK SURGERYS Surgical History BI LATERAL CARPAL TUNNELS Surgical History CERVICAL FUSION Surgical History FIRST RIB Hospitalization History SEE ABOVE
--- OUTSIDE RECORDS SUMMARY | 2018-04-11 15:00 | External Medical Summary ---
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 679043326509 disease), mild intermittent, uncomplicated Problem Unspecified asthma, J45.909 Active 400131816 uncomplicated Problem Raynauds disease I73.00 Active 028622578 without gangrene Problem Dysuria 788.1 Active 84660909 Problem Essential hypertension I10 Active 49003358 Problem Diabetes 1.5, 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 Problem Unspecified atrial I48.91 Active 843770210 fibrillation Problem DDD (degenerative disc M50.30 Active 52184922 disease), cervical Problem Renal insufficiency N28.9 Active 359927704 Problem shelter current use Z79.01 Active 181696207 of anticoagulant therapy Problem Hypothyroidism, E03.9 Active 48049749 unspecified Problem Depressive disorder, F32.9 Active 42977114 not elsewhere classified ALLERGIES No Information ENCOUNTERS Encounter Location Date Diagnosis [facility] [address] Mar, [facility] [place] [address] [facility] [address] Mar, [facility] [place] [place] 11140 [facility] [address] [facility] Feb, [facility] [place] [place] 73922 [facility] [address] [facility] Feb, [facility] [place] [place] [id number] [place] [address] [address] Feb, [facility] [place] [place] [address] [place] [address] [address] Feb, [facility] [place] [address] [place] [address] [address] Feb, [facility] [place] [address] [place] [address] [address] Feb, [facility] [place] [place] [address] [place] [address] [address] Feb, [facility] [place] [address] [place] [address] [address] Feb, [facility] [place] [place] [address] [place] [address] [address] Feb, [facility] [place] [place] 71024 [facility] [address] Feb, [facility] [place] [place] 38704 [facility] [address] Feb, [facility] [place] [place] [address] [place] [address] [address] Feb, [facility] [place] [place] [address] [place] [address] [address] January, [facility] [place] [place] [address] [place] [address] [address] January, [facility] [place] [address] [place] [address] [address] January, [facility] [place] [address] [place] [address] [address] January, [facility] [place] [place] [address] [place] [address] [address] January, [facility] [place] [address] [place] [address] [address] January, Cellulitis of foot, right [facility] 21718 L03.115 ; Diabetes 1.5, managed as type 1 E13.9 ; Renal insufficiency N28.9 and Hypothyroidism, unspecified E03.9 [facility] [address] January, [facility] [place] [place] 14683 [facility] [address] January, [facility] [place] [place] 80045 [facility] [address] January, [facility] [place] [place] 59357 [facility] [address] January, Contusion of right foot, [facility] [place] 23114 initial encounter S90.31[facility] [address] January, [facility] [place] [address] [place], [place] [address]ta Family [address] January, [facility] [address] [place], [place] [address]ta Family [address] Dec, [facility] [address] [place] [address] Family [address] Dec, [facility] [address] [place], [place] [address]ta Family [address] Dec, [facility] [place] [place] [address] [place], [place] [address]ta Family [address] Dec, [facility] [address] [place] [address] Family [address] Dec, [facility] [address] [place] [address] Family [address] Dec, [facility] [address] [place] [address] [address] Dec, [facility] [address] [place] [address] Family [address] Dec, [facility] [address] [place] [address] [address] Dec, [facility] [address] [place] [address] Family [address] Nov, [facility] [address] [place] [address] Family [address] Nov, Hyponatremia E87.1 [facility] [address] [place] [address] [address] 21 Nov, 2017 [facility] [address] [place] [address] [address] Nov, [facility] [address] [place] [address] [address] Nov, [facility] [address]33 [facility] [address] 14 Nov, 2017 [facility] [place] [address] [facility] [address] Nov, [facility] [place] [place] 69130 [facility] [address] Nov, Encounter for long-term [facility] [place] [place] (current) use of anticoagulants V58.61 [place] [address] Nov, [facility] [place] [place] 66539 [facility] [address] Nov, [facility] [place] [address] Nov, [facility] 27113 [facility] [address] Oct, Urethral catheter present for [facility] long-term use Z96.0 ; Upper respiratory tract infection, unspecified type J06.9 and Diabetes 1.5, managed as type 1 E13.9 [facility] [address] Oct, [facility] [place] [place] 42428 [facility] [address] Oct, [facility] [place] [place]212 [facility] [address] Oct, Encounter for long-term [facility] [place] (current) use of anticoagulants V58.61 [facility] [address] Oct, [facility] [place] [place] 33666 [facility] [address] Oct, [facility] [place] [place] 97685 [facility] [address] Oct, [facility] [place] [place] 99626 [facility] [address] Sep, [facility] 77983 [facility] [address] Sep, [facility] [place] 85816 [facility] [address] Sep, [facility] [address] [facility] [address] Sep, [facility] [address]6088 [facility] [address] Sep, [facility] 84234 [facility] [address] Sep, [facility] [place] [place] 63324 [facility] [address] Sep, [facility] [place] [place] 71291 [facility] [address] Sep, [facility] [place] [place] 47129 [facility] [address] Sep, [facility] [place] [place]212 [facility] [address] Sep, [facility] [place] 83580 [facility] [address] Aug, [facility] [place] [place]212 [place] [facility] [address] Aug, [facility] 89379 [facility] [address] Aug, [facility] 55501 [facility] [address] Aug, [facility] [place] [address] [place], [place] [address]ta Family [address] Aug, [facility] 39525 [facility] [address] Aug, [facility] [place]212 [facility] [address] Aug, [facility] [address] Jul, [facility] 26045 [facility] [address] Jul, [facility] 11083 [facility] [address] Jul, [facility] [place] 46369 [facility] [address] Jul, [facility] 00851 [facility] [address] Jul, [facility] [place] 49358 [facility] [address] Jun, Shortness of breath R06.02 and [facility] 27252 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 [place] [address] Jun, [facility] 65495 [facility] [address] Jun, [facility] 14456 [facility] [address] Jun, [facility] [address] Jun, [facility] [place]212 [facility] [address] Jun, [facility] [address] Jun, [facility] [address] Jun, [facility] [facility] [address] Jun, [facility] [facility] [address] Jun, [facility] [address] May, [facility] [address] [place] [address] [address] May, [facility] [address] [place] [address] [address] May, Edema, unspecified type R60.9 [facility] 45069 and Hyponatremia E87.1 [facility] [address] May, [facility] [address] [place] [address] [address] May, [facility] [address] [place] [address] [address] May, [facility] [address] [place] [address] [address] May, [facility] [address] [place] [address] [address] May, [facility] [address] [place] [address] [address] May, [facility] [address] [place] [address] [address] May, [facility] [place] [address] [place] [address] [address] 18 May, 2017 [facility] [address] [place] [address] [address] 13 May, 2017 [facility] [address] [place] [address] [address] May, [facility] [address] [place] [address] [address] May, [facility] [address] [place] [address] [address] May, [facility] [address] [place] [address] [address] Apr, [facility] [address] [place] [address] [address] Apr, [facility] [address] [place] [address] [address] Apr, [facility] [place] 51436 [facility] [address] Apr, Paraplegia following spinal [facility] [place]212 cord injury G82.20 ; DDD (degenerative disc disease), cervical M50.30 and Diabetes 1.5, managed as type 1 E13.9 [place] [facility] [address] Apr, [facility] [place] 239[address] [place] [facility] [address] Apr, [facility] [place] 92178 [place] [facility] [address] Apr, [facility] [place] 42534 [place] [facility] [address] Apr, [facility] [place] 73184 [place] [facility] [address] Apr, [facility] [place] 21541 [place] [facility] [address] Apr, [facility] [place] [place]212 [place] [facility] [address] Apr, [facility] [place] [address]00 [place] [facility] [address] Apr, [facility] [place] [place]212 [place] [facility] [address] Mar, [facility] [place] 40228 [facility] [place] [address] Mar, [facility] [place] 30846 [place] [facility] [address] Mar, [facility] [place] 88441 [place] [facility] [address] Mar, [facility] [place] [place] 03616 [place] [facility] [address] Mar, [facility] [place] 76110 [place] [facility] [address] Mar, [facility] [place] [address] [place], [place] [address] [address] Feb, [facility] [place] [address]15 [place] [facility] [address] Feb, [facility] [place] [place] [address] [address] Feb, [facility] [place] [place]212 [place] [facility] [address] Feb, [facility] [place] [facility] [address] Feb, [facility] [place] [facility] [address] Feb, [facility] [place] [facility] [address] Feb, [facility] [place] [facility] [address] January, [place] [address] [place] [facility] [address] January, [facility] [place] 52855 [place] [facility] [address] January, [facility] 07002 [place] [facility] [address] January, [facility] [place] 87631 [place] [facility] [address] January, [facility] [place] 29874 [place] [facility] [address] January, [facility] [place] 97945 [place] [facility] [address] Dec, [facility] [place] 44308 [place] [facility] [address] Dec, [facility] [place] 63505 [place] [facility] [address] Dec, [facility] [place] 75268 [place] [facility] [address] Dec, [facility] [place] 46381 [place] [facility] [address] Dec, [facility] [place] 16508 [place] [facility] [address] Dec, [facility] 13376 [place] [facility] [address] Nov, [facility] [place] 24336 [place] [facility] [address] Nov, [facility] [place] 50816 [place] [facility] [address] Nov, [facility] [place] 30776 [place] [facility] [address] Nov, [facility] [place] [place] 05768 [place] [facility] [address] Nov, [facility] [place] 84254 [place] [facility] [address] Nov, [facility] [place] [place] 73968 [place] [facility] [address] Nov, [facility] [place] 35390 [place] [facility] [address] Nov, [facility] [place] 80747 [place] [facility] [address] Oct, [facility] [place] 36627 [place] [facility] [address] Oct, [facility] [place] 48277 [place] [facility] [address] Oct, [facility] [place]2 [facility] [address] Oct, [facility] [place] [address] [place] [address] [address] Oct, [facility] [place] [address] [place] [address] [address] Oct, [facility] [place] [address] [place] [address] [address] Oct, [facility] [place] [address] [place] [address] [address] Oct, Bronchitis J40 and RAD [facility] [place] 67697 (reactive airway disease), mild intermittent, uncomplicated J45.20 [facility] [place] [address] Oct, [facility] [place] [address] [place] [address] [address] Oct, [facility] [address] [place] [address] [address] Sep, [facility] [place] [address] [place] [address] [address] Sep, [facility] [place] [address] [place] [address] [address] Sep, [facility] [place] [address] [place] [address] [address] Sep, [facility] [place] 16465 [facility] [address] Sep, [facility] [place] [address] [place] [address] [address] Sep, [facility] [place] [address] [place] [address] [address] Aug, [facility] [place] 65192 [facility] [address] Aug, [facility] [place] 49064 [facility] [address] Aug, [facility] [place] 30618 [facility] [address] Aug, [facility] [place] 00797 [facility] [address] Aug, [facility] [place] 79521 [facility] [address] Aug, Near syncope R55 and Diabetes [facility] [place]212 1.5, managed as type 1 E13.9 [facility] [address] Aug, [facility] [place] 03300 [place] [facility] [address] Aug, [facility] [place] [place] 93150 [facility] [place] [facility] [address] Aug, [facility] [place] 44278 [facility] [place] [facility] [address] Aug, [facility] [place] 62064 [facility] [place] [facility] [address] Aug, [facility] [place] 46625[facility] [place] [facility] [address] Aug, [facility] [place] 92467 [place] [facility] [address] Aug, [facility] [place] 87110 [place] [facility] [address] Jul, [facility] [place] 86710 [facility] [place] [facility] [address] Jul, [facility] [place] 73940 [facility] [place] [facility] [address] Jul, [facility] [place] 19665 [facility] [place] [facility] [address] Jul, [facility] [place] [address] [place] [address] [place] [facility] [address] Jul, [facility] [place] 50902[facility] [place] [facility] [address] Jul, [facility] [place] 93221 [place] [facility] [address] Jul, [facility] [place] [id number] [place], [place] [address] [address] Jul, [facility] [place] [address] [place], [place] [address] [address] 15 Jul, 2016 [facility] [place] [id number] [place], [place] [address] [address] Jul, [facility] [place] [id number] [place] [address] [address] Jul, [facility] [place] [id number] [place] [address] [address] Jul, [facility] [place] [id number] [place] [address] [address] Jul, [facility] [place] [id number] [place] [address] [address] Jul, [facility] [place] [id number] [place] [address] [address] Jul, [facility] [place] [place] [address] [address] Jul, [facility] [place] 88583 [facility] [place] [facility] [address] Jul, 2015 [facility] [place] 21812 [facility] [place] [facility] [address] Jul, 2015 [facility] [place] 19743 [place] [facility] [address] Jun, 2015 [facility] [place] [id number] [place], [place] [address] [address] Jun, 2015 [facility] [place] [facility] 70449 [facility] [place] [facility] [address] Jun, 2016 [facility] [place] 00952 [facility] [place] [facility] [address] Jun, 2015 [facility] [place] [facility] 68042 [facility] [place] [facility] [address] 14 Jun, 2015 [facility] [place] [id number] [place] [address] [address] Jun, 2015 [facility] [place] 87298 [facility] [place] [facility] [address] Jun, 2015 [facility] [place] 14765 [facility] [place] [facility] [address] 30 May, 2016 [facility] [place] [id number] [place] [address] [address] 30 May, 2016 [facility] [place] 79665 [facility] [place] [facility] [address] 23 May, 2016 [facility] [place] 56689 [facility] [place] [facility] [address] May, 2016 [facility] [place] [id number] [place] [address] [address] May, 2016 [facility] [place] [id number] [place], [place] [address] [address] 20 May, 2016 [facility] [place] [address] [place] [address] [address] 16 May, 2016 [facility] [place] 36129 [facility] [place] [facility] [address] May, 2016 [facility] 66344 [facility] [place] [facility] [address] May, 2016 [facility] [place] 72707 [facility] [place] [facility] [address] May, 2016 [facility] [place] [id number] [place] [address] [address] May, 2016 [facility] [place] [facility] 07536 [facility] [place] [facility] [address] May, [address] [place] [place], [place] [address]ta Family [address] May, [facility] 71543 [facility] [address] May, [facility] [place] [address] [place], [place] [address]ta Family [address] Apr, [facility] [place] [id number] [place], [place] [address]ta Family [address] Apr, [facility] [place] [id number] [place], [place] [address]ta Family [address] Apr, [facility] [place] [id number] [place], [place] [address]ta Family [address] Apr, [facility] [place] [address] [place] [address] Family [address] Apr, Encounter for long-term [facility] [place] 53828 (current) use of anticoagulants V58.61 and Abnormal laboratory test R89.9 [facility] [place] [address] Apr, [facility] [place] 70003 [facility] [address] Apr, [facility] [place] 50475 [facility] [address] Apr, [facility] [place] 93972 [facility] [address] Apr, [facility] [place] 70116 [facility] [address] Apr, [facility] [place] [facility] 62446 [facility] [address] Apr, [facility] [place] 01489 [facility] [address] Apr, [facility] [place] 98557 [facility] [address] Apr, [facility] [place] 72615 [facility] [address] Mar, [facility] [place] 02032 [facility] [address] Mar, [facility] [place] 49612 [facility] [address] Mar, [facility] [place] 06342 [facility] [address] Mar, [facility] [place] 59236 [facility] [address] Mar, [facility] [place] 77723 [facility] [address] Mar, [facility] [place] [facility] [address] Mar, [facility] [place] [id number] [place], [place] [address] [address] Mar, Paraplegia following spinal [facility] 35516 cord injury G82.20 ; Essential hypertension I10 ; Unspecified atrial fibrillation I48.91 and Diabetes 1.5, managed as type 1 E13.9 [facility] [place] [facility] [address] Mar, [facility] [place] 75426 [facility] [address] Feb, [facility] [place] [id number] [place] [address] [address] Feb, [facility] 35380 [facility] [address] Feb, [facility] [place] 69325 [facility] [address] Feb, [facility] [place] [id number] [place], [place] [address] [address] Feb, [facility] [place] 42829 [facility] [address] Feb, [facility] [place] [id number] [place], [place] [address] [address] Feb, [facility] [place] [id number] [place], [place] [address] [address] Feb, [facility] [place] 65640 [facility] [address] Feb, [facility] [place] [id number] [place], [place] [address] [address] Feb, [facility] [place] [id number] [place], [place] [address] [address] Feb, [facility] [place] [id number] [place] [address] [address] Feb, [facility] 51867 [facility] [address] Feb, [facility] [place] 70435 [facility] [address] Feb, [facility] [place] 58610 [facility] [address] January, [facility] [place] 85093 [facility] [address] January, [facility] [place] 35328 [facility] [address] January, [facility] [place] [facility] [address] January, [facility] [place] 25595 [facility] [place] [facility] [address] January, [facility] [place] 88788 [facility] [place] [facility] [address] January, [facility] [place] 97925 [facility] [place] [facility] [address] January, [facility] [place] 57891 [facility] [place] [facility] [address] January, [facility] [place] 62831 [facility] [place] [facility] [address] January, [facility] [place] 48038 [facility] [place] [facility] [address] January, [facility] [place] 43707 [facility] [place] [facility] [address] January, [facility] 45074 [facility] [place] [facility] [address] Dec, [facility] 23792 [facility] [place] [facility] [address] Dec, [facility] 32624 [facility] [place] [facility] [address] Dec, [facility] 25808 [facility] [place] [facility] [address] Dec, [facility] 18349 [facility] [place] [address] Dec, Physicians [facility] [address] [facility] [address] Dec, Physicians [facility] [address]1969 [facility] [address] Dec, Physicians [facility] 86760 [facility] [address] Dec, Physicians [facility] 78693 [place] [facility] [address] Dec, Physicians [facility] 59269 [facility] [address] Dec, Physicians [facility] 51641 [facility] [address] Nov, Physicians [facility] 82966 [facility] [address] Nov, Physicians [facility] 68960 [facility] [address] Nov, Physicians [facility] 90234 [place] [facility] [address] Nov, Physicians WONG PENA212 [facility] [address] 15 Nov, 2015 Physicians [facility] 19468 [facility] [address] 14 Nov, 2015 Physicians [facility] 31604 [facility] [address] 14 Nov, 2016 Physicians W[facility] [id number] [place], [place] [address] [address] Nov, 2015 Physicians [facility] 07083 [facility] [address] Nov, 2015 Physicians [facility] 60570 [facility] [address] Nov, 2015 Physicians [facility] 99564 [facility] [address] Nov, Physicians W[facility] [id number] [place], [place] [address] [address] Nov, Physicians W[facility] [id number] [place] [address] [address] Nov, Physicians [facility] 70289 [facility] [address] Oct, 2015 Physicians [facility] 47802 [facility] [address] Oct, 2015 Physicians [facility] 11394 [facility] [address] Oct, 2015 Physicians [facility] 56824 [facility] [address] Oct, 2015 Physicians [facility] 67887 [facility] [address] Oct, 2015 Physicians W[facility] PE[facility] [id number] [place], [place] [address] [address] Oct, 2015 Physicians [facility] 03770 [facility] [address] Oct, 2015 Physicians [facility] 51872 [facility] [address] Oct, 2015 Physicians [facility] 01353 [facility] [address] Oct, 2015 Physicians W[facility] [id number] [place], [place] [address] [address] Oct, 2015 [facility] 14621 [facility] [address] Oct, 2015 [facility] 70767 [facility] [address] Oct, 2015 Physicians [facility] [place] [address] [place] [address] [address] Sep, Physicians [facility] [address] [place] [address] [address] Sep, Physicians [facility] [address] [place] [address] [address] Sep, DDD (degenerative disc Physicians WONG PE[facility] disease), cervical M50.30 ; Diabetes 1.5, managed as type 1 E13.9 and Otitis externa H60.90 [facility] [address] Sep, Physicians [facility] [address] [place] [address] [address] Sep, Physicians [facility] [address] [place] [address] [address] Sep, Physicians [facility] [address] [place] [address] [address] Sep, Physicians [facility] [address] [place] [address] [address] Sep, Physicians [facility] [address] [place] [address] [address] Sep, Physicians [facility] [address] [place] [address] [address] Sep, Physicians [facility] [address] [place] [address] [address] Sep, Physicians [facility] [address] [place] [address] [address] Sep, Physicians [facility] [address] [place] [address] [address] Sep, Physicians [facility] [address] [place] [address] [address] Sep, Physicians [facility] [address] [place] [address] [address] Sep, Glossitis K14.0 and Aphthous Physicians W[facility] ulcer K12.0 [facility] [address] Sep, Physicians [facility] [address] [place] [address] [address] Sep, Physicians [facility] [address] [place] [address] [address] Sep, Physicians [facility] [address] [place] [address] [address] Sep, Physicians [facility] [address] [place] [address] [address] Sep, Physicians WONG PENA[address] [place] [address] [address] Aug, Physicians W[facility] [address] [place] [address] [address] Aug, Physicians [facility] 66422 [facility] [address] Aug, Physicians [facility] 87397 [facility] [address] Aug, Physicians [facility] [address] [place] [address] [address] Aug, Physicians [facility] [address] [place] [address] [address] Aug, Physicians [facility] 11695 [facility] [address] Aug, Diabetes 1.5, managed as type 1 Physicians WNOG PENA 87927 E13.9 ; Renal insufficiency N28.9 ; DDD (degenerative disc disease), cervical M50.30 ; Hypothyroidism, unspecified E03.9 ; [employer] current use of anticoagulant therapy Z79.01 ; Essential hypertension I10 ; Unspecified asthma, uncomplicated J45.909 ; Pure hypercholesterolemia E78.0 ; 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 and Depressive disorder, not elsewhere classified F32.9 [facility] [address] Jul, Physicians [facility] EP[facility] 84613 [facility] [address] Jul, Physicians [facility] 70953 [facility] [address] Jul, Physicians [facility] 43288 [facility] [address] Jul, Physicians [facility] [address] [place] [address] [address] Jun, Physicians [facility] 92490 [facility] [address] Jun, Physicians [facility] 71345 [facility] [address] Jun, Physicians [facility] 80194 [facility] [address] Jun, Physicians W[facility] PE[facility] [address] Jun, Physicians [facility] 72500 [facility] [address] Jun, Physicians W[facility] [place] [facility] [address] Jun, Physicians WONG [facility] [id number] [place], [place] [address]ta Family [address] 14 May, 2015 Physicians [facility] [address] [place], [place] [address]ta Family [address] May, Physicians [facility] [address] [place], [place] [address]ta Family [address] May, Physicians [facility] [address] [place], [place] [address] Family [address] May, Physicians [facility] [address] [place], [place] [address] Family [address] May, Physicians [facility] [address] [place], [place] [address]ta Family [address] May, Chronic back pain 724.5 Physicians [facility] [address] [place], [place] [address]ta Family [address] Apr, Physicians [facility] [address] [place], [place] [address]ta Family [address] Apr, Physicians [facility] [address] [place], [place] [address]ta Family [address] Apr, Physicians [facility] [address] [place], [place] [address]ta Family [address] Apr, Physicians [facility] [address] [place] [address] Family [address] Apr, Physicians [facility] [address] [place] [address] Family [address] Apr, Physicians [facility] [address] [place] [address] [address] Mar, Physicians [facility] [address] [place] [address] [address] Mar, Chronic back pain 724.5 Physicians WOG[place] PE[facility] [address] [place], [place] [address]ta Family [address] Mar, Physicians [facility] [address] [place], [place] [address]ta Family [address] Mar, Occult blood in stools 792.1 Physicians [facility] 73478 [facility] [address] Feb, Occult blood in stools 792.1 Physicians [facility] 48169 [facility] [address] Feb, Occult blood in stools 792.1 Physicians [facility] [address] [place] [address] Family [address] Feb, Physicians [facility] 30080 [facility] [place] [facility] [address] Feb, Diarrhea 787.91 Physicians WONG [facility] [id number] [place], [place] [address]ta Family [address] Feb, Physicians [facility] 99302 [place] [facility] [address] Feb, Diarrhea 787.91 Physicians W[facility] [id number] [place], [place] [address]ta Family [address] Feb, Physicians W[facility] [id number] [place], [place] [address]ta Family [address] Feb, Physicians W[facility] [id number] [place], [place] [address]ta Family [address] Feb, Physicians WOGN PE[place] [id number] [place], [place] [address]ta Family [address] Feb, Physicians W[facility] [id number] [place], [place] [address]ta Family [address] January, Physicians [facility] [address] [place], [place] [address]ta Family [address] January, Physicians W[facility] [id number] [place], [place] [address]ta Family [address] January, Physicians W[facility] [id number] [place], [place] [address]ta Family [address] January, Physicians W[facility] [id number] [place] [address]ta Family [address] January, Physicians W[facility] [id number] [place] [address]ta Family [address] Dec, Physicians WONG [facility] [id number] [place] [address]ta Family [address] Dec, Physicians W[facility] [id number] [place] [address]ta Family [address] Dec, Physicians W[facility] [id number] [place], [place] [address]ta Family [address] Dec, Physicians [facility] [address] [place], [place] [address]ta Family [address] Dec, Phys[facility] 83860 [facility] [address] Dec, [facility] 06233 [facility] [address] Nov, Phys[facility] 39016 [facility] [address] Nov, Phys[facility] 15483 [facility] [address] Nov, Physicians [facility] 93415 [facility] [address] Nov, Physicians W[facility] [address] [place] [address] [address] Nov, Physicians [facility] [address] [place] [address] [address] Nov, Physicians [facility] [address] [place] [address] [address] Nov, Physicians W[facility] [address] [place] [address] Minor [address] Nov, [facility] [place] [address] [facility] Minor [address] Nov, Pneumonitis [address] [place] [address] [facility] [address] Oct, Physicians W[facility] [address] [place] [address] [address] Oct, Physicians [facility] [address] [place] [address] [address] Oct, Physicians [facility] [address] [place] [address] [address] Oct, Physicians [facility] [address] [place] [address] [address] Oct, Physicians [facility] [address] [place] [address] [address] Oct, Physicians [facility] [address] [place] [address] [address] Oct, Physicians W[facility] [address] [place] [address] [address] Oct, Physicians W[facility] [address] [place] [address] [address] Oct, Physicians [facility] [address] [place] [address] [address] Sep, Physicians W[facility] [address] [place] [address] [address] Sep, Physicians [facility] [address] [place] [address] [address] Sep, Physicians W[facility] [address] [place] [address] [address] Sep, Physicians W[facility] [address] [place] [address] [address] Sep, DDD (degenerative disc disease) Physicians W[facility] 722.6 ; Diabetes 1.5, 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 ; Renal insufficiency 593.9 ; Hypertension 401.9 and 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 [facility] [address] Sep, Physicians W[place] [facility] [id number] [place], [place] [address]ch[facility] [address] Sep, Physicians W[facility] [address] [place], [place] [address] Family [address] Sep, Physicians W[facility] [address] [place], [place] [address] Family [address] Sep, Physicians WONG P[place] [address] [place], [place] [address] Family [address] Sep, Physicians W[facility] [address] [place], [place] [address] Family [address] Sep, Physicians [facility] [address] [place], [place] [address]ta Family [address] Sep, Physicians [facility] [address] [place], [place] [address]ta Family [address] Sep, Physicians [place] [address] [place], [place] [address]ta Family [address] Sep, Physicians [place] [facility] [address] [place], [place] [address]ta Family [address] Sep, Physicians [place] [facility] [address] [place], [place] [address]ch[place] Family [address] Aug, Physicians W[place] [id number] [place], [place] [address]ch[place] Family [address] Aug, Physicians [facility] [address] [place], [place] [address] Family [address] Aug, Physicians [facility] [address] [place], [place] [address]ta Family [address] Aug, Physicians [facility] [address] [place], [place] [address]ta Family [address] Aug, Physicians [place] [address] [place], [place] [address]ta Family [address] Aug, Physicians [place] [facility] [address] [place], [place] [address]ch[place] Family [address] Aug, Physicians [place] [address] [place], [place] [address] Family [address] Aug, Physicians [facility] [address] [place], [place] [address]ta Family [address] Jul, Phys[facility] 93539 [facility] [address] Jul, Physicians [facility] [address] [place] [address] Minor [address] Jul, Cough 786.2 [facility] [id number] [facility] 8200 [facility] Jul, Physicians [facility] [address] [place] [address] 8200 [facility] Jul, Physicians [facility] [address] [place] [address] 8200 [facility] Jul, Physicians [facility] [address] [place] [address] 8200 [facility] Jul, Physicians W[facility] [address] [place] [address] [place] [address] Jul, Physicians [facility] [address] [place] [address] 8200 [facility] Jul, Physicians [facility] [address] [place] [address] 8200 [facility] Jul, Physicians [place] 25220 [facility] 8200 [facility] Jul, Physicians W[facility] [address] [place] [address] 8200 [facility] Jul, Physicians W[facility] [address] [place] [address] 8200 [facility] Jul, Physicians W[facility] [address] [place] [address] [place] [address] Jul, Physicians W[facility] [address] [place] [address] 8200 [facility] Jun, DDD (degenerative disc disease) Physicians WONG PENA212 722.6 ; Diabetes 1.5, 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 ; 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 ; Renal insufficiency 593.9 ; A-fib 427.31 and Encounter for long-term (current) use of anticoagulants V58.61 [facility] [address] Jun, Physicians [facility] [address] [facility] 8200 [facility] Jun, Physicians W[facility] 49022 [facility] 8200 [facility] Jun, Physicians [facility] [place] 89418 [facility] [address] [place] [address] Jun, Physicians [place] 02455 [facility] [address] [place] [address] May, Physicians [facility] 60934 [facility] 8200 [facility] May, A-fib 427.31 and Encounter for Physicians WONG [facility] long-term (current) use of anticoagulants V58.[address] May, A-fib 427.31 and Encounter for Physicians [facility] long-term (current) use of anticoagulants V58.[address] May, Physicians [place] [place] [address] May, Physicians [place] [address] May, A-fib 427.31 and Encounter for Physicians [facility] long-term (current) use of anticoagulants V58.[address] May, A-fib 427.31 ; Encounter for Physicians [facility] long-term (current) use of anticoagulants V58.61 and Hypothyroid 244.[address] May, Physicians [place] [address] May, Physicians [facility] [address] May, Hypothyroid 244.9 ; A-fib Physicians [facility] 427.31 and Encounter for long-term (current) use of anticoagulants V58.[address] May, Contusion of foot 924.20 ; Physicians W[facility] A-fib 427.31 ; Encounter for long-term (current) use of anticoagulants V58.61 ; Hypothyroid 244.9 ; Diabetes 1.5, 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 ; Anemia 285.9 and Hypokalemia [address] Apr, Physicians [facility] [address] Apr, Physicians [place] [address] Apr, Physicians [place] [place] [address] Apr, Physicians [place] [address] Apr, Physicians [facility] [address] Apr, A-fib 427.31 and Encounter for Physicians WONG [facility] long-term (current) use of anticoagulants V58.[address] Apr, Physicians [place] [place] [address] Apr, Anemia 285.9 ; A-fib 427.31 and Physicians WONG [facility] Hypokalemia [address] Apr, Physicians [place] [address] Apr, Physicians [facility] [address] Apr, A-fib 427.31 and Anemia 285.9 Physicians [facility] [address] Apr, Contusion of foot 924.20 ; Physicians W[facility] Encounter for long-term (current) use of anticoagulants V58.61 ; Hypothyroid 244.9 ; A-fib 427.31 ; Hypokalemia 276.8 ; Anemia 285.9 and Diabetes 1.5, 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 Mar, Diabetes 1.5, managed as type 1 Physicians [facility] 250.00 ; Encounter for long-term (current) use of anticoagulants V58.61 ; Hypothyroid 244.9 and A-fib 427.[address] Mar, Contusion of foot 924.20 ; Physicians WONG [facility] Anemia 285.9 ; Encounter for long-term (current) use of anticoagulants V58.61 ; A-fib 427.31 and Low blood potassium 276.[address] Mar, Right foot pain 729.5 Physicians [facility] [address] Mar, Physicians [place] [place] [address] Mar, Physicians [place] [address] Mar, Physicians [place] [address] Mar, Physicians WONG PENA212 [facility] [address] [place] [address] Mar, Physicians W[facility] [address] Mar, Physicians WONG PENA212 [address] Mar, Hypothyroid 244.9 Physicians WONG PENA212 [address] Mar, Physicians [facility] [address] Mar, Encounter for long-term Physicians W[facility] (current) use of anticoagulants V58.61 and A-fib 427.[address] Mar, Encounter for long-term Physicians [facility] (current) use of anticoagulants V58.61 and A-fib 427.[address] Feb, Physicians [place] [place] [address] Feb, Physicians WONG PENA212 [facility] [address] [place] [address] Feb, Encounter for long-term Physicians W[facility] (current) use of anticoagulants V58.61 and A-fib 427.[address] Feb, A-fib 427.31 ; Encounter for Physicians WONG PE[facility] long-term (current) use of anticoagulants V58.61 and Diabetes 1.5, 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 [place] [address] [address] Feb, A-fib 427.31 and Encounter for Physicians WONG [facility] long-term (current) use of anticoagulants V58.61 [facility] [address] [place] [address] Feb, Physicians [facility] [address] Feb, Encounter for long-term Physicians [facility] (current) use of anticoagulants V58.61 ; A-fib 427.31 and Diabetes 1.5, 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 [facility] [address] Feb, Physicians [place] [place] [address] Feb, A-fib 427.31 ; Encounter for Physicians WONG [facility] long-term (current) use of anticoagulants V58.61 and Anemia 285.[address] January, Anemia 285.9 Physicians W[facility] [address] January, A-fib 427.31 and Encounter for Physicians [facility] long-term (current) use of anticoagulants V58.[address] January, Anemia 285.9 ; Diabetes 1.5 , Physicians WONG PENA 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 ; DDD (degenerative disc disease) 722.6 ; Hypertension 401.9 ; Encounter for long-term (current) use of anticoagulants V58.61 ; A-fib 427.31 ; Lethargy 780.79 and Pyuria 791.[address] January, Physicians [place] [address] January, A-fib 427.31 and Encounter for Physicians [facility] [place] long-term (current) use of anticoagulants V58.[address] January, Encounter for long-term Physicians [facility] (current) use of anticoagulants V58.61 ; A-fib 427.31 ; Diabetes 1.5, 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 ; DDD (degenerative disc disease) 722.6 ; Hypertension 401.9 ; Anemia 285.9 ; Lethargy 780.79 and Pyuria 791.[address] January, Physicians [facility] [address] January, Physicians [place] [address] January, Physicians [place] [address] Dec, Physicians [facility] [address] Dec, Physicians [facility] [address] Dec, Diabetes 1.5, managed as type 1 Physicians WONG [facility] 250.00 ; DDD (degenerative disc disease) 722.6 ; Hypertension 401.9 ; Lethargy 780.79 and Pyuria 791.[address] Dec, Physicians W[facility] [address] Dec, Encounter for long-term Physicians [facility] (current) use of anticoagulants V58.61 ; Anemia 285.9 and A-fib 427.[address] Dec, Physicians W[facility] [place] [address] Dec, Encounter for long-term Physicians W[facility] (current) use of anticoagulants V58.61 ; A-fib 427.31 and Anemia 285.[address] Dec, Anemia 285.9 Physicians WONG PENA212 [address] Dec, Physicians [place] [place] [address] Dec, Encounter for long-term Physicians [facility] (current) use of anticoagulants V58.61 and A-fib 427.[address] Dec, A-fib 427.31 and Encounter for Physicians WONG PE[facility] long-term (current) use of anticoagulants V58.[address] Dec, Physicians [place] [place] [address] Dec, Physicians [place] [address] Dec, Renal insufficiency 593.9 and Physicians WONG [facility] A-fib 427.[address] Dec, Physicians [place] [place] [address] Dec, Physicians [place] [address] Nov, Stool color abnormal 792.1 Physicians [place] [address] [place] [address] [address] Nov, Physicians W[facility] [address] [place] [address] [address] Nov, Stool color abnormal 792.1 Physicians [facility] [address] [place] [address] [address] Nov, Dysuria 788.1 and Pyuria 791.9 Physicians W[facility] [address] [place] [address] [address] Nov, Dysuria 788.1 Physicians [facility] [address] [place] [address] [address] Nov, Physicians W[facility] [address] [place] [address] [address] Oct, Physicians W[facility] [address] [place] [address] [address] Oct, Physicians W[facility] [address] [place] [address] [address] Oct, Physicians W[facility] [address] [place] [address] 8200 [facility] Oct, Physicians WONG PE[facility] [address] [place] [address] 8200 [facility] Oct, Physicians W[facility] PE[facility] [address] [place] [address] 8200 [facility] Oct, Hyponatremia 276.1 and Physicians WONG PENA 84726 Confusion 298.9 [facility] [address] Sep, Physicians WONG PE[facility] [address] [place] [address] [address] Sep, Dysuria 788.1 and Physicians WONG PENA 249[address] Hallucinations 780.1 [facility] [address] Sep, Physicians WONG PE[facility] [address] [place] [address] [address] Sep, Physicians W[facility] PE[facility] [address] [place] [address] [address] Sep, Physicians WONG PE[facility] [address] [place] [address] [address] Sep, Physicians WONG PE[facility] [address] [place] [address] [address] Sep, Chronic back pain 724.5 ; DDD Physicians WONG [facility] (degenerative disc disease) 722.6 ; Diabetes 1.5, 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 ; Hypercholesterolemia 272.0 ; Renal insufficiency 593.9 ; Asthma 493.90 ; Hypertension 401.9 and Pyuria 791.9 [facility] [address] Sep, Phys[facility] [address] [facility] [address] Sep, Physicians [facility] [address] [facility] [address] Sep, Physicians [facility] [address] [facility] [address] Aug, Physicians [facility] [address] [facility] [facility] [address] Aug, [facility] [place] [address] [facility] [address] Aug, [facility] [place] [address] [facility] [address] Aug, [facility] [place] [address] [facility] [address] Aug, [facility] [place] [address] [facility] [address] Aug, [facility] [place] [address] [facility] [address] Jul, Phys[facility] [place] [address] [facility] [address] Jul, Phys[facility] [place] [address] [facility] [address] Jul, Phys[facility] [place] [address] [facility] [address] Jul, Phys[facility] [place] [address] [facility] [address] Jul, Phys[facility] [place] [address] [facility] [address] Jul, Physicians [place]212 [facility] [address] Jul, Phys[facility] [place] [address] [facility] [address] Jun, [facility] [place]212 [facility] [address] Jun, Phys[facility] [place] [facility] [address] Jun, Physicians [place]212 [facility] [address] Jun, Chronic back pain 724.5 ; DDD [place] [address] (degenerative disc disease) 722.6 ; Diabetes 1.5, 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 ; Depression 311 and Renal insufficiency 593.9 [facility] [address] Jun, Phys[facility] [place] [id number] [facility] [address] Jun, Physicians [place]212 [facility] 8200 [facility] Jun, Physicians [place]212 [facility] 8200 [facility] Jun, Physicians [place]212 [facility] 8200 [facility] Jun, Lethargy 780.79 ; DDD [facility] [place] [address] (degenerative disc disease) 722.6 ; Diabetes 1.5, 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 ; Hypercholesterolemia 272.0 ; Renal insufficiency 593.9 and Pyuria 791.9 [facility] [address] Jun, Phys[facility] [place] [address] [place] [address] 8200 [facility] Jun, [facility] [place] [address] [place] [address] [address] May, Physicians [place]212 [facility] 8200 [facility] May, Physicians [place] [address] [facility] [address] May, Phys[facility] [place] [address] [facility] [address] May, DDD (degenerative disc disease) Physicians [place]212 722.6 ; Diabetes 1.5, 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 and Depression 311 [facility] [address] May, Physicians [place] [id number] [facility] [address] May, Physicians [place]212 [facility] [address] May, Physicians [place]212 [facility] [address] May, Physicians [place]212 [facility] [address] Apr, Physicians [place]212 [facility] 8200 [facility] Apr, Physicians [place]212 [facility] [address] Apr, Physicians [place] [address] [facility] [address] Apr, [facility] [place] [address] [facility] [address] Apr, Phys[facility] [place] [address] [facility] [address] Apr, [facility] [place] [address] [facility] [address] Apr, Phys[facility] [place] [address] [facility] [address] Apr, [facility] [place] [address] [facility] [address] Mar, Phys[facility] [place] [address] [facility] [address] Mar, Phys[facility] [place] [address] [facility] [address] Mar, Phys[facility] [place] [address] [facility] [address] Mar, DDD (degenerative disc disease) [facility] [place] [address] 722.6 ; Diabetes 1.5, 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 ; Depression 311 ; 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 and Hypercholesterolemia 272.0 [facility] [address] Mar, Physicians [place] [address] [facility] [address] Mar, Phys[facility] [place] [address] [facility] [address] Mar, [facility] [place] [address] [facility] [address] Mar, Phys[facility] [place] [address] [facility] [address] Feb, Phys[facility] [place] [address] [facility] [address] Feb, Phys[facility] [place] [address] [facility] [address] Feb, Physicians [place] [facility] [address] Feb, Physicians [place] [facility] [address] Feb, Physicians [place] [address] [facility] [address] Feb, [place] [address] [facility] [address] Feb, Physicians [place] [address] [facility] [address] Feb, Phys[facility] [place] [address] [facility] [address] Feb, Physicians [place] [address] [facility] [address] Feb, Physicians [place] [address] [facility] [address] Feb, Phys[facility] [place] [address] [facility] [address] January, Physicians [place] [address] [facility] [address] January, Physicians [place] [address] [facility] [address] January, Physicians [place] [address] [facility] [address] January, Physicians [place] [address] [facility] [address] January, Physicians [place] [address] [facility] [address] January, Physicians [place] [address] [facility] [address] Dec, Physicians [place] [address] [facility] [address] Dec, Physicians [place] [address] [facility] [address] Dec, Physicians [place] [address] [facility] [address] Dec, Phys[facility] [place] [address] [facility] [address] Dec, Diabetes 1.5, managed as type 1 [facility] [place] [address] 250.00 ; 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 ; Hypercholesterolemia 272.0 and Chronic back pain 724.5 [facility] [address] Dec, Phys[facility] [place] [address] [facility] [address] Dec, Phys[facility] [place] [address] [facility] [address] Dec, Phys[facility] [place] [address] [facility] [address] Nov, Physicians [place] [address] [facility] [address] Nov, Phys[facility] [place] [address] [facility] [address] Nov, Physicians [place] [id number] [place] [address] [address] Nov, Physicians [place] [address] [facility] [address] Nov, Physicians [place] [address] [facility] [address] Nov, Phys[facility] [place] [address] [facility] [address] Nov, Phys[facility] [place] [address] [facility] [address] Oct, Phys[facility] [place] [address] [facility] [address] Oct, Phys[facility] [place] [address] [facility] [address] Oct, Physicians [place] [address] [facility] [address] Oct, Physicians [place] [address] [facility] [address] Oct, Physicians [place] [address] [facility] [address] Oct, Phys[facility] [place] [address] [facility] [address] Oct, Paraplegia 344.1 ; Diabetes Phys[facility] [place] [address] 1.5, 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 ; Edema 782.3 and UTI (lower urinary tract infection) 599.0 [facility] [address] Oct, Physicians [place] [address] [facility] [address] Oct, Physicians [place] [facility] [address] Oct, Physicians [place] [address] [facility] [address] Oct, Physicians [place]212 [facility] [address] Oct, Physicians [place] [facility] [address] Sep, Physicians [place]212 [facility] [address] Sep, Physicians [place] [facility] [address] Sep, Physicians [place] [id number] [place], [place] [address] [address] Sep, Physicians [place] [phone] [place], [place] [address] [address] Sep, Physicians [place] [address] [facility] [address] Sep, Physicians [place] [address] [facility] [address] Sep, Physicians [place] [address] [facility] [address] Sep, Physicians [place] [address] [facility] [address] Aug, Physicians [place] [address] [facility] [address] Aug, Physicians [place] [address] [facility] [address] Aug, Physicians [place] [address] [facility] [address] Aug, Physicians [place] [address] [facility] [address] Aug, Physicians [place] [address] [facility] [address] Aug, Physicians [place] [id number] [place], [place] [address] [address] Aug, Physicians [place] [address] [facility] [address] Aug, Physicians [place] [address] [facility] [address] Aug, Phys[facility] [place] [address] [facility] [address] Aug, Physicians [place] [address] [facility] [address] Aug, Chronic back pain 724.5 ; DDD [facility] [place] [address] (degenerative disc disease) 722.6 ; Diabetes 1.5, 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 and Depression 311 [facility] [address] Aug, Physicians [place] [address] [facility] [address] Aug, Physicians [place] [address] [facility] [address] Aug, Physicians [place] [facility] [address] Jul, Phys[facility] [place] [address] [facility] [address] [place] [address] Jul, Physicians [place] [address] [facility] [address] [place] [address] May, Physicians [place] [address] [facility] [address] [place] [address] Aug, Physicians [place] [id number] IMMUNIZATIONS No Known Immunizations SOCIAL HISTORY Never [...]
[2018-04-11] MEDS ORDERED: TRIMETHOPRIM PO ONE (15:11)
[2018-04-11] MEDS ORDERED: SULFAMETHOXAZOLE PO ONE (15:11)
[2018-04-11] MEDS ORDERED: IBUPROFEN 100 MG/5 ML ORAL LIQUID PO PRN (15:13)
--- NOTE | 2018-04-11 15:45 | XRay Report ---
Indication: hip fracture, preop PROCEDURE: XR chest 1V: Encounter: Initial Comparison: 07/11/2015 Findings: There are scattered megaly and probably vascular congestion without overt CHF. No pleural effusion. The patient has had fusion of the lower cervical spine and posterior frankie and pedicle screw fusion of the thoracolumbar spine. There is a left subclavian dual-lead pacemaker in place. No pneumothorax. Impression: Cardiomegaly and pulmonary vascular congestion without overt CHF. .
--- NOTE | 2018-04-11 15:45 | Emergency Department Report ---
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 takes care of pt at home and today while trying to transfer left slipped and pt fell on his left side onto the floor. Pt complains of left hip pain. Pt denies head, neck or back pain. No LOC. gave a Coram just prior to arrival. <Elizabeth Lama 04/11/18 15:47> MD complaint: hip injury <Elizabeth Lama 04/11/18 15:47> - Related Data Home Medications Medication Instructions Recorded Confirmed Tamsulosin HCl [Flomax] 0.4 mg PO DAILY #0 07/21/10 04/11/18 Baclofen [Lioresal] 10 mg PO TID 04/11/18 04/11/18 Bumetanide Tab [Bumex 0.5 mg Tab] 0.5 mg PO DAILY 04/11/18 04/11/18 CephALEXin [Keflex 250 mg] 250 mg PO DAILY 04/11/18 04/11/18 Citalopram [Celexa] 20 mg PO DAILY 04/11/18 04/11/18 Fluticasone HFA [Flovent Hfa 110 1 puff INH BID 04/11/18 04/11/18 mcg] Fluticasone Nasal [employer] [Flonase] 1 spray ADONAY BID 04/11/18 04/11/18 Gabapentin 300 mg PO DAILY 04/11/18 04/11/18 Gabapentin [Neurontin] 900 mg PO HS 04/11/18 04/11/18 Hydrocodone/APAP 7.5/325 [Coram 1 tab PO TID PRN 04/11/18 04/11/18 7.5/325] Insulin Aspart [NovoLOG] 1 - 2 unit SQ AC 04/11/18 04/11/18 Levothyroxine Tab [Synthroid] 50 mcg PO ACB 04/11/18 04/11/18 Lisinopril [Prinivil] 5 mg PO DAILY 04/11/18 04/11/18 Metoprolol Tartrate [Lopressor] 25 mg PO BIDWM 04/11/18 04/11/18 Multivitamin [One Daily] 1 each PO DAILY 04/11/18 04/11/18 Omeprazole [Prilosec] 20 mg PO DAILY 04/11/18 04/11/18 PEG 3350 17gm PACKET [Miralax] 17 gm PO DAILY 04/11/18 04/11/18 Simvastatin [Zocor] 10 mg PO HS 04/11/18 04/11/18 Tolterodine 2 mg [Detrol] 2 mg PO BID 04/11/18 04/11/18 Valbenazine Tosylate [Ingrezza] 80 mg PO DAILY 04/11/18 04/11/18 Venlafaxine [Effexor] 75 mg PO DAILY 04/11/18 04/11/18 Warfarin Sodium 2 mg PO MO 04/11/18 04/11/18 Warfarin Sodium 4 mg PO 6XW 04/11/18 04/11/18 <Rodney Moya Q - 04/11/18 17:58> Allergies Allergy/AdvReac Type Severity Reaction Status Date / Time Horse/Equine Containing Allergy Unknown Verified 04/11/18 14:56 Products meprobamate Allergy Unknown Verified 04/11/18 14:56 tramadol AdvReac Unknown HIVES Verified 04/11/18 14:56 amitriptyline AdvReac Verified 04/11/18 14:56 <Rodney Moya Q - 04/11/18 17:58> Review of Systems All systems: reviewed and negative except as stated <Elizabeth Lama 15:47> Constitutional: Reports: as per HPI <Elizabeth Lama 04/11/18 15:47> Musculoskeletal: Reports: as per HPI <Elizabeth Lama 04/11/18 15:47> Neurological: Reports: as per HPI <Elizabeth Lama 04/11/18 15:47> [facility] Patient Stated Medical History Paralysis Yes Cardiac Arrhythmia Yes Congestive Heart Failure Yes Hypertension Yes Asthma Yes Diabetes Mellitus Type 2 Yes Other Yes: kidney disease Anemia Yes: chronic, sees Dr Crawford <Rodney Moya - 04/11/18 17:58> Physical Exam - Limitations Limitations: physical limitation <Elizabeth Lama 04/11/18 15:47> - General General appearance: alert, in no apparent distress <Elizabeth Lama 04/11 15:47> - Normal Exams: Head:: Normocephalic without trauma <Elizabeth Lama 04/11/18 15:47> Eyes:: Pupils are PERRLA w/ EOMI <Elizabeth Lama 04/11/18 15:47> Chest/Respirations:: Clear all saldaña, with good airflow, and symmetry bilaterally <Elizabeth Lama 04/11/18 15:47> Cardiovascular:: Regular rate and rhythm, without murmur or gallop, Pulses 2+ all extremities, capillary refill, <2 seconds all extremities <Elizabeth Lama 04/11/18 15:47> Abdomen:: Bowel sounds positive, soft, non-tender <Elizabeth Lama 15:47> Neurological:: Patient is alert, and oriented, cranial nerves, motor/sensory/ cerebellar, exams w/o gross deficits, to observation <Elizabeth Lama 15:47> Psychiatric:: Patient exhibits, appropriate attention, emotion and affect < Elizabeth Lama 04/11/18 15:47> - Expanded Lower Extremity Exam left Hip/Pelvis exam: Present: normal inspection, tenderness, shortening. Absent: swelling, abrasion <Elizabeth Lama 04/11/18 16:00> - Back Exam Back exam: Present: normal inspection. Absent: tenderness <Elizabeth Lama 04/11/18 15:47> - Expanded Skin Exam Type of lesion: Present: abrasion (left elbow bleeding controlled) <Elizabeth Lama 04/11/18 15:47> Course Vital Signs Temperature 98.1 F 04/11/18 14:25 Pulse Rate 64 04/11/18 14:25 Respiratory Rate 22 07/23/18 14:25 Blood Pressure 126/60 04/11/18 14:25 Pulse Oximetry 97 04/11/18 14:25 Temperature 96.9 F 04/11/18 17:36 Pulse Rate 70 04/11/18 17:36 Respiratory Rate 20 04/11/18 17:36 Blood Pressure 123/67 04/11/18 17:36 Pulse Oximetry 91 04/11/18 17:36 <Rodney Moya Q - 04/11/18 17:58> Extremity Injury, Lower - MDM Narrative Medical decision making narrative: X ray results reviewed with comminuted left intertrochanteric fracture of left femur. CXR, EKG, and labs obtained for potential OR. Dr Jefferson notified of findings. PA at bedside. Pt and family informed of findings. Ativan provided to assist with pain control. Hospitalist to admit. <Elizabeth Lama - 04/11/18 16:35> - Differential Diagnosis Likely: fracture of femur, fracture of hip (abrasion, bruising post fall) < Elizabeth Lama - 04/11/18 15:47> - Lab Data Attestation: I reviewed the patient's lab results. <Elizabeth Lama - 04/11 16:00> Result diagrams: 04/11/18 16:00 04/11/18 16:00 <Rodney Moya Q - 04/11/18 17:58> Lab Results 04/11/18 04/11/18 04/11/18 Range/Units 16:00 16:00 16:00 WBC 12.9 H (4.5-11.0) T/MM3 RBC 3.95 L (4.50-5.90) M/MM3 Hgb 12.3 L (13.5-17.5) GM/DL Hct 36.5 L (41-53) % MCV 92.4 (80-100) UM3 MCH 31.1 (26-34) UUG MCHC 33.7 (31-37) GM/DL RDW Std Deviation 42.4 (36.9-50.2) FL Plt Count 182 (130-400) T/MM3 MPV 10.7 (9.4-12.4) UM3 Immature Gran % (Auto) 0.2 (0.0-0.5) % Neut % (Auto) 50.6 (33-66) % Lymph % (Auto) 38.3 (23-45) % [place] % (Auto) 5.3 (0-9.0) % Eos % (Auto) 5.4 H (0-4) % Baso % (Auto) 0.2 (0-2) % Neut # (Auto) 6.5 (1.8-7.7) T/MM3 Lymph # (Auto) 5.0 H (1-4.8) T/MM3 [place] # (Auto) 0.7 (0-0.8) T/MM3 Eos # (Auto) 0.7 H (0-0.5) T/MM3 Baso # (Auto) 0.0 (0-0.2) T/MM3 Abs Immat Gran (auto) 0.03 (0.00-0.03) T/MM3 INR 2.72 H (0.92-1.18) Turbidity < 20 (0-20) Sodium 135 L (136-146) MEQ/L Potassium 5.2 H (3.6-5) MEQ/L Chloride 97 L (98-107) MEQ/L Carbon Dioxide 26 (22-30) MEQ/L Anion Gap 12 (5-15) meq/L BUN 28.0 H (9-20) MG/DL Creatinine 2.1 H (0.8-1.5) mg/dL GFR Calculation 31 BUN/Creatinine Ratio 13 (6-26) RATIO Glucose 107 (75-110) MG/DL Hemoglobin A1c (4.0-5.7) % Calculated Osmolality 266 (261-280) MOSM/KG Calcium 8.8 (8.4-10.2) MG/DL Total Bilirubin 0.50 (0.20-1.30) MG/DL Icterus Index < 2 (0-7) AST 27 (17-59) U/L ALT 20 (1-50) U/L Alkaline Phosphatase 93 (38-126) U/L Total Protein 8.6 H (6.3-8.2) g/dL Albumin 4.5 (3.5-5.0) g/dL Globulin 4.1 H (2.4-3.6) G/DL Albumin/Globulin Ratio 1.1 (1.1-2.2) RATIO Specimen Hemolysis < 15 (0-25) 07//18 Range/Units 16:00 WBC (4.5-11.0) T/MM3 RBC (4.50-5.90) M/MM3 Hgb (13.5-17.5) GM/DL Hct (41-53) % MCV (80-100) UM3 MCH (26-34) UUG MCHC (31-37) GM/DL RDW Std Deviation (36.9-50.2) FL Plt Count (130-400) T/MM3 MPV (9.4-12.4) UM3 Immature Gran % (Auto) (0.0-0.5) % Neut % (Auto) (33-66) % Lymph % (Auto) (23-45) % [place] % (Auto) (0-9.0) % Eos % (Auto) (0-4) % Baso % (Auto) (0-2) % Neut # (Auto) (1.8-7.7) T/MM3 Lymph # (Auto) (1-4.8) T/MM3 [place] # (Auto) (0-0.8) T/MM3 Eos # (Auto) (0-0.5) T/MM3 Baso # (Auto) (0-0.2) T/MM3 Abs Immat Gran (auto) (0.00-0.03) T/MM3 INR (0.92-1.18) Turbidity (0-20) Sodium (136-146) MEQ/L Potassium (3.6-5) MEQ/L Chloride (98-107) MEQ/L Carbon Dioxide (22-30) MEQ/L Anion Gap (5-15) meq/L BUN (9-20) MG/DL Creatinine (0.8-1.5) mg/dL GFR Calculation BUN/Creatinine Ratio (6-26) RATIO Glucose (75-110) MG/DL Hemoglobin A1c 6.2 H (4.0-5.7) % Calculated Osmolality (261-280) MOSM/KG Calcium (8.4-10.2) MG/DL Total Bilirubin (0.20-1.30) MG/DL Icterus Index (0-7) AST (17-59) U/L ALT (1-50) U/L Alkaline Phosphatase (38-126) U/L Total Protein (6.3-8.2) g/dL Albumin (3.5-5.0) g/dL Globulin (2.4-3.6) G/DL Albumin/Globulin Ratio (1.1-2.2) RATIO Specimen Hemolysis (0-25) <Rodney Moya 04/11/18 17:58> - Radiology Data Attestation: I reviewed the patient's radiology results. <DainaElizabeth R 04/11/18 16:00> - EKG Data EKG #1 EKG attestation: Yes: I reviewed and interpreted this EKG. <Carol Moyan Live 04/11/18 17:58> EKG results narrative: Ventricularly paced <Rodney Moya 04/11/18 17:58> Disposition Clinical Impression: Fracture of hip Qualifiers: Encounter type: initial encounter Fracture type: closed Laterality: left Qualified Code(s): S72.002A - Fracture of unspecified part of neck of left femur , initial encounter for closed fracture <Carol Moyan Live 04/11/18 17:58> Disposition: 02 To [facility] [place] <Carol Moyan Live 04/11/18 17:58> Condition: Stable <Carol Moyan Live 04/11/18 17:58> Instructions: <Carol Moyan Live 04/11/18 17:58> Prescriptions: No Action Warfarin Sodium 2 mg PO MO Insulin Aspart [NovoLOG] 1 - 2 unit SQ AC Warfarin Sodium 4 mg PO 6XW Tolterodine 2 mg [Detrol] 2 mg PO BID Simvastatin [Zocor] 10 mg PO HS PEG 3350 17gm PACKET [Miralax] 17 gm PO DAILY Omeprazole [Prilosec] 20 mg PO DAILY Metoprolol Tartrate [Lopressor] 25 mg PO BIDWM Lisinopril [Prinivil] 5 mg PO DAILY Levothyroxine Tab [Synthroid] 50 mcg PO ACB Fluticasone Nasal [employer] [Flonase] 1 spray ADONAY BID Fluticasone HFA [Flovent Hfa 110 mcg] 1 puff INH BID Gabapentin [Neurontin] 900 mg PO HS Citalopram [Celexa] 20 mg PO DAILY CephALEXin [Keflex 250 mg] 250 mg PO DAILY Bumetanide Tab [Bumex 0.5 mg Tab] 0.5 mg PO DAILY Baclofen [Lioresal] 10 mg PO TID Valbenazine Tosylate [Ingrezza] 80 mg PO DAILY Hydrocodone/APAP 7.5/325 [Coram 7.5/325] 1 tab PO TID PRN PRN Reason: Pain Multivitamin [One Daily] 1 each PO DAILY Tamsulosin HCl [Flomax] 0.4 mg PO DAILY #0 Venlafaxine [Effexor] 75 mg PO DAILY Gabapentin 300 mg PO DAILY <Rodney Moya Q - 04/11/18 17:58> Referrals: Rajinder Weiss [Primary Care Provider] - <Rodney Moya Q - 17:58> Forms: <Rodney Moya Q - 04/11/18 17:58> - Seen By: midlevel <Elizabeth Lama - 04/11/18 16:35>
--- NOTE | 2018-04-11 15:46 | XRay Report ---
Indication: dropped from lift PROCEDURE: XR hip LT min 2V: Encounter: Initial Comparison: None. Findings: There is a comminuted intertrochanteric femur fracture of the proximal left femur with cephalad and medial displacement of the lesser trochanter. There is moderate diffuse osteopenia. No dislocation. Impression: Comminuted intertrochanteric proximal left femur fracture. .
--- NOTE | 2018-04-11 15:47 | XRay Report ---
Indication: dropped from lift PROCEDURE: XR pelvis 1-2V: Encounter: Initial Comparison: None. Findings: There is a comminuted intertrochanteric femur fracture of the proximal left femur with cephalad and medial displacement of the lesser trochanter. No definite dislocation. The patient has had a posterior frankie and pedicle screw fusion of the lower lumbar spine into the sacrum. The right hip is unremarkable. There is moderate diffuse osteopenia. Impression: Comminuted intertrochanteric femur fracture of the proximal left femur. No definite pelvic fracture. .
[2018-04-11] MEDS: SALINE FLUSH 10ml SYRINGE IVF PRN ×4 (15:52→17:39)
--- NOTE | 2018-04-11 16:48 | Orthopedic Consult Note ---
Orthopedic Consultation HPI - Consultation Info Consult Date: 04/11/18 Attending Physician: Ramona Fleming MD - History of Present Illness Tyron is a pleasant 73 y/o male paraplegic, whom earlier today was being assisted by his from lift and fell on his left hip. EMS was dispatched and patient transferred to [facility] ER. Xrays revealed left IT hip fracture. His spinal cord injury is from 2011, he also has undergone 10+ back surgeries. reports he had been working with PT for years and was to the point he was standing with some attempts of walking few steps. Decreased movement on left vs right, able to assist with positioning and able to lift legs to some degree. He has multiple co-morbidities and has multiple specialist. He is followed by Dr. Biggs for CKD, Dr Perez manages patient's suprapubic catheter. Dr. Nowak for chronic anemia, reports last epo injection 06/06. He is currently on Coumadin for Afib, which is managed by Dr. Hartman. INR 2.72. Hgb 12. Patient was admitted to hospitalist services for medical management with surgical consultation to Ortho for fixation of left IT fracture. Review of Systems - Constitutional Constitutional: Absent: fever(s), dizziness - Cardiovascular Cardiovascular: Absent: chest pain, syncope - Respiratory Respiratory: Absent: cough, dyspnea - Gastrointestinal Gastrointestinal: Absent: diarrhea, nausea, vomiting - Musculoskeletal Musculoskeletal: Present: as per HPI - Neurological Neurological: Present: as per HPI - Hematologic/Lymphatic Hematologic/Lymphatic: Present: as per HPI PFS Patient Stated Medical History Paralysis Yes Cardiac Arrhythmia Yes Congestive Heart Failure Yes Hypertension Yes Asthma Yes Diabetes Mellitus Type 2 Yes Other Yes: kidney disease Anemia Yes: chronic, sees Dr Crawford - Social History Smoking status: Unknown if ever smoked Medications Home Medications Medication Instructions Recorded Confirmed Type Tamsulosin HCl [Flomax] 0.4 mg PO DAILY #0 07/21/10 04/11/18 History Baclofen [Lioresal] 10 mg PO TID 04/11/18 04/11/18 History Bumetanide Tab [Bumex 0.5 mg Tab] 0.5 mg PO DAILY 04/11/18 04/11/18 History CephALEXin [Keflex 250 mg] 250 mg PO DAILY 04/11/18 04/11/18 History Citalopram [Celexa] 20 mg PO DAILY 04/11/18 04/11/18 History Fluticasone HFA [Flovent Hfa 110 1 puff INH BID 04/11/18 04/11/18 History mcg] Fluticasone Nasal [place] [Flonase] 1 spray ADONAY BID 04/11/18 04/11/18 History Gabapentin 300 mg PO DAILY 04/11/18 04/11/18 History Gabapentin [Neurontin] 900 mg PO HS 04/11/18 04/11/18 History Hydrocodone/APAP 7.5/325 [[place] 1 tab PO TID PRN 04/11/18 04/11/18 History 7.5/325] Insulin Aspart [NovoLOG] 1 - 2 unit SQ AC 04/11/18 04/11/18 History Levothyroxine Tab [Synthroid] 50 mcg PO ACB 04/11/18 04/11/18 History Lisinopril [Prinivil] 5 mg PO DAILY 04/11/18 04/11/18 History Metoprolol Tartrate [Lopressor] 25 mg PO BIDWM 04/11/18 04/11/18 History Multivitamin [One Daily] 1 each PO DAILY 04/11/18 04/11/18 History Omeprazole [Prilosec] 20 mg PO DAILY 04/11/18 04/11/18 History PEG 3350 17gm PACKET [Miralax] 17 gm PO DAILY 04/11/18 04/11/18 History Simvastatin [Zocor] 10 mg PO HS 04/11/18 04/11/18 History Tolterodine 2 mg [Detrol] 2 mg PO BID 04/11/18 04/11/18 History Valbenazine Tosylate [Ingrezza] 80 mg PO DAILY 04/11/18 04/11/18 History Venlafaxine [Effexor] 75 mg PO DAILY 04/11/18 04/11/18 History Warfarin Sodium 2 mg PO MO 04/11/18 04/11/18 History Warfarin Sodium 4 mg PO 6XW 04/11/18 04/11/18 History Allergies Allergy/AdvReac Type Severity Reaction Status Date / Time Horse/Equine Containing Allergy Unknown Verified 04/11/18 14:56 Products meprobamate Allergy Unknown Verified 04/11/18 14:56 tramadol AdvReac Unknown HIVES Verified 04/11/18 14:56 amitriptyline AdvReac Verified 04/11/18 14:56 Exam - Constitutional Vital Signs: Temperature 98.1 F 04/11/18 14:25 Pulse Rate 63 04/11/18 16:00 Respiratory Rate 20 04/11/18 16:00 Blood Pressure 119/77 04/11/18 16:00 Pulse Oximetry 94 04/11/18 16:00 General: cooperative, no acute distress, well developed Nutritional Appearance: well nourished Orientation: alert - RLE General: edema (pedal +1) Neurological: normal to light touch Vascular: dorsalis pedis pulse within normal limits - LLE General: edema (pedal +1), other (Left leg shorten and hip internally rotated) Neurological: normal to light touch Vascular: dorsalis pedis pulse within normal limits - Respiratory Respiratory Exam: non-labored - Cardiac Cardiovascular exam: pedal pulses intact - Labs Result Diagrams: 04/11/18 16:00 04/11/18 16:00 Abnormal lab results 04/11/18 04/11/18 04/11/18 Range/Units 16:00 16:00 16:00 WBC 12.9 H (4.5-11.0) T/MM3 RBC 3.95 L (4.50-5.90) M/MM3 Hgb 12.3 L (13.5-17.5) GM/DL Hct 36.5 L (41-53) % Eos % (Auto) 5.4 H (0-4) % Lymph # (Auto) 5.0 H (1-4.8) T/MM3 Eos # (Auto) 0.7 H (0-0.5) T/MM3 INR 2.72 H (0.92-1.18) Sodium 135 L (136-146) MEQ/L Potassium 5.2 H (3.6-5) MEQ/L Chloride 97 L (98-107) MEQ/L BUN 28.0 H (9-20) MG/DL Creatinine 2.1 H (0.8-1.5) mg/dL Total Protein 8.6 H (6.3-8.2) g/dL Globulin 4.1 H (2.4-3.6) G/DL H & H 04/11/18 Range/Units 16:00 Hgb 12.3 L (13.5-17.5) GM/DL Hct 36.5 L (41-53) % Coagulation 04/11/18 Range/Units 16:00 INR 2.72 H (0.92-1.18) Impression and Recommendation (1) Intertrochanteric fracture of left hip Current visit: Yes Qualifiers: Encounter type: initial encounter Fracture type: closed Status: Acute Dr. Jefferson discussed surgical intervention with ORIF of left IT hip fracture, risks and complications including possible need for further surgeries if fixation fails. NPO after midnight with plan for surgery tomorrow if medically cleared by Hospitalist and INR <1.5 Hospital Course Summary Disclaimer: The visit summary below is not to be considered part of the above Progress Note.
[2018-04-11] MEDS ORDERED: FentaNYL 100 MCG/2 ML INJECTION IVP PRN (16:58)
[2018-04-11] MEDS ORDERED: ONDANSETRON 4 MG/2 ML INJECTION IVP PRN (17:07)
[2018-04-11] MEDS ORDERED: PHYTONADIONE 5 MG/2.5 ML ORAL LIQUID PO ONE (17:22)
--- NOTE | 2018-04-11 17:23 | History & Physical Report ---
History of Present Illness Date: 04/11/18 Chief complaint: Left hip pain HPI: Tyron Silver is a 73 y/o paraplegic male who lives at home with his and great-granddaughter. He has been paraplegic from the T3 level since 2011. He is able to activate his muscles minimally in his lower extremities and has sensation. He is nonambulatory. As his was placing him in the lift today in preparation for a wound care appointment for a healing right foot wound, the legs to the lift crossed, causing him to fall and she fell on top of him. He did not strike his head/lose consciousness. Further he's been in his typical state of health up until this accident at home. He occasionally has some mild SOA secondary to asthma, but denies any recent fevers/chills, cough/congestion, chest pain, palpitations, headaches, dizziness, abdominal pain, n/v/d/c, or recent problems with his suprapubic catheter. He has some scratches on his arms and legs from their cat, and tends to bleed/bruise easily since he's on Coumadin for A-fib. He was taken to [facility] ED, where he was diagnosed with a left hip IT fracture. In addition, labs showed an VENITA with cr of 2.1 (baseline 1.2- 1.5), hyperkalemia (5.2), hyponatremia (135 - reports chronic low sodium). He has chronic anemia and follows with Dr. Nowak -- hgb was 12.3. WBC was elevated at 12.9. INR was therapeutic at 2.72. Supine CXR demonstrated vascular congestion. EKG showed v-paced rhythm. Dr. Jefferson and the hospitalist service were both contacted, and the patient was admitted to inpatient status with consultation placed to ortho service. LOS is expected to exceed 2 overnights. Review of Systems All systems PM: 10-point ROS was reviewed, no additional remarkable complaints except - Constitutional Constitutional: Present: as per HPI - EENMT Eyes: Absent: change in vision Nose: Present: allergies Mouth/Throat: Absent: sore throat - Cardiovascular Cardiovascular: Present: as per HPI - Respiratory Respiratory: Present: as per HPI - Gastrointestinal Gastrointestinal: Present: as per HPI, constipation - Genitourinary Genitourinary: Present: as per HPI - Musculoskeletal Musculoskeletal: Present: as per HPI, back pain - Integumentary/Breasts Integumentary: Present: as per HPI - Neurological Neurological: Present: as per HPI - Psychiatric Psychiatric: Absent: anxiety - Endocrine Endocrine: Absent: palpitations - Hematologic/Lymphatic Hematologic/Lymphatic: Present: as per HPI - Allergic/Immunologic Allergic/Immunologic: Present: seasonal rhinorrhea Past Medical History Medical History Updates: T3 paraplegia. Atrial fibrillation. HTN. dyslipidemia. Hypothyroidism. Chronic hyponatremia. GERD. Asthma. Depression. Morbid obesity BMI >40 Surgical History: After his 9th back surgery he fell twice at home, resulting in a spinal cord injury/hematoma. He underwent the 10th surgery without improvement in symptoms. Pacemaker. B/L CTR. 1st rib removed. 2 suprapubic catheters Family History Updates: Mother had HTN, of a brain aneurysm at age 65. Father also had HTN, of a heart attack at age 81. He has 8 siblings - 1 and only sister recently . One brother drowned at age 18. Another brother of cancer at age 65. Another brother of rheumatic heart disease. The other brothers are still living, and have back problems, heart disease, and one has Parkinsons. Family History: As Above - Social History Smoking status: Never smoker Substance use type: does not use Alcohol intake frequency: does not drink Household members: spouse, family Current occupational status: retired Previous occupational history: Grider/auto brake mechanic Social history: CV - Devan Nephro - Kalyan Uro - Joudy Heme - Mattar Medications Home Medications Medication Instructions Recorded Confirmed Type Tamsulosin HCl [Flomax] 0.4 mg PO DAILY #0 07/21/10 04/11/18 History Baclofen [Lioresal] 10 mg PO TID 04/11/18 04/11/18 History Bumetanide Tab [Bumex 0.5 mg Tab] 0.5 mg PO DAILY 04/11/18 04/11/18 History CephALEXin [Keflex 250 mg] 250 mg PO DAILY 04/11/18 04/11/18 History Citalopram [Celexa] 20 mg PO DAILY 04/11/18 04/11/18 History Fluticasone HFA [Flovent Hfa 110 1 puff INH BID 04/11/18 04/11/18 History mcg] Fluticasone Nasal [place] [Flonase] 1 spray ADONAY BID 04/11/18 04/11/18 History Gabapentin 300 mg PO DAILY 04/11/18 04/11/18 History Gabapentin [Neurontin] 900 mg PO HS 04/11/18 04/11/18 History Hydrocodone/APAP 7.5/325 [[place] 1 tab PO TID PRN 04/11/18 04/11/18 History 7.5/325] Insulin Aspart [NovoLOG] 1 - 2 unit SQ AC 04/11/18 04/11/18 History Levothyroxine Tab [Synthroid] 50 mcg PO ACB 04/11/18 04/11/18 History Lisinopril [Prinivil] 5 mg PO DAILY 04/11/18 04/11/18 History Metoprolol Tartrate [Lopressor] 25 mg PO BIDWM 04/11/18 04/11/18 History Multivitamin [One Daily] 1 each PO DAILY 04/11/18 04/11/18 History Omeprazole [Prilosec] 20 mg PO DAILY 04/11/18 04/11/18 History PEG 3350 17gm PACKET [Miralax] 17 gm PO DAILY 04/11/18 04/11/18 History Simvastatin [Zocor] 10 mg PO HS 04/11/18 04/11/18 History Tolterodine 2 mg [Detrol] 2 mg PO BID 04/11/18 04/11/18 History Valbenazine Tosylate [Ingrezza] 80 mg PO DAILY 04/11/18 04/11/18 History Venlafaxine [Effexor] 75 mg PO DAILY 04/11/18 04/11/18 History Warfarin Sodium 2 mg PO MO 04/11/18 04/11/18 History Warfarin Sodium 4 mg PO 6XW 04/11/18 04/11/18 History Allergies Allergy/AdvReac Type Severity Reaction Status Date / Time Horse/Equine Containing Allergy Unknown Verified 04/11/18 14:56 Products meprobamate Allergy Unknown Verified 04/11/18 14:56 tramadol AdvReac Unknown HIVES Verified 04/11/18 14:56 amitriptyline AdvReac Verified 04/11/18 14:56 Exam Vital Signs: Temperature 98.1 F 04/11/18 14:25 Pulse Rate 63 04/11/18 16:00 Respiratory Rate 20 04/11/18 16:00 Blood Pressure 119/77 04/11/18 16:00 Pulse Oximetry 94 04/11/18 16:00 Height/Weight/BMI: Height 1.65 m Weight 109.9 kg - Constitutional Present: mild distress, well nourished, well developed, morbidly obese - Routine HEENT Exam Head: Present: normocephalic Eye: Present: PERRL. Absent: conjunctival icterus, scleral injection ENT: Present: mucous membranes dry - Routine Neck Exam Present: supple - Routine Respiratory Exam Present: CTA bilaterally - Routine Cardiovascular Exam Present: RRR, S1, S2 - Routine Abdominal Exam Present: soft, normoactive bowel sounds, non distended, non tender - Routine Extremities Exam Present: no edema, pulses intact, normal capillary refill Comments: Left leg is shortened and externally rotated - Routine Skin Exam Present: dry, warm, wounds (mild abrasions to both forearms) Comments: Healing wound to dorsal aspect of right foot. - Routine Neurological Exam Present: alert, oriented X3, normal speech. Absent: facial asymmetry - Routine Psychiatric Exam Present: normal affect, normal thought process, cooperative Results - Labs CBC & Chem 7: 04/11/18 16:00 04/11/18 16:00 - Imaging and Cardiology Chest x-ray Status: image reviewed by me Additional comments: poor inspiratory effort increased vascularity hardware noted Pelvis/hip xray Status: image reviewed by me Additional comments: Left hip IT fracture Bony demineralization Assessment and Plan Assessment and Plan: Assessment Left hip IT fracture VENITA with creatinine of 2.1, baseline 1.2-1.5 Coagulopathy d/t Coumadin Hyperkalemia, POA Leukocytosis, POA Chronic anemia Hyponatremia, chronic T3 paraplegia Atrial fibrillation HTN dyslipidemia Hypothyroidism GERD Asthma Depression Morbid obesity BMI >40 Plan Admit, inpatient status under the hospitalist service. Dr. Jefferson has been consulted -- hopeful for surgery tomorrow if INR <1.5. NPO at [place]. INR 2.72 -- will give Vit K 5 mg x1. Hold Coumadin. VENITA -- NS @ 100 mL/hr. Monitor for fluid overload. Hold Bumex, lisinopril. Reduce evening dose of gabapentin to 600 mg based on CrCl of 50. Monitor hgb; high risk for needing transfusion d/t chronic anemia. Leukocytosis -- poss. stress rxn. Monitor blood sugars. Check A1c. Hold insulin since he's NPO. Pain control -- Dilaudid 0.5 mg q2h PRN. (Note pt itches with morphine - could try administering with Benadryl). Advanced directives: spouse is DPOA. Requests DNR. Discussed with ED provider, ortho, and attending. GI Prophylaxis: Omeprazole Resuscitation Status: Do Not Resuscitate - Physician Narrative Physician: Linda Barraza Narrative: Date: 04/11/18 Time: 1706 I have independently interviewed and examined patient. Patient chart reviewed. Case discussed with my TRACK LAYER. Care plan developed with my supervision, agree with above. A 73-year-old male patient with history of paraplegia and currently living at home with his who also is primary caregiver along with home health presented to emergency room with the fall. Patient's present at bedside and provides most of the history. As per patient's , she uses a lift to move him in bed and was getting ready to move patient using left for patient's wound care needs when accidentally the lift legs crossed causing patient to fall. No reported head trauma, no loss of consciousness. Patient was brought to the emergency room, imaging showed evidence of left hip intertrochanteric fracture. Hospitalist service contacted for admission and orthopedic surgeon, Dr. Jefferson has been consulted for management of fracture. Patient has history of atrial fibrillation, hypertension, hyperlipidemia, diabetes mellitus, tardive dyskinesia from reported Reglan use, obstructive sleep apnea with off and on compliance with CPAP. Prior to fall, patient was at previous baseline status. Patient has had multiple back surgeries, reported to be 10. Patient had a previous fall in 2011 following which she has been paraplegic from T3 level. Patient evaluated following transfer to surgical floor from emergency room. Patient reportedly received dose of fentanyl in the emergency room prior to transfer and appears drowsy at the time of interview. PFSH: As above ROS: 10 point review, as above Physical exam: General: Drowsy, arousable on light touch and verbal stimulation and responds to verbal queries. Oriented to self, person and place. In moderate painful distress. Head: Pupils equal, round, reactive to light and accommodation. Neck: No elevation in JVP. No pharyngeal erythema noted. Chest: The patient does not use accessory muscles for breathing. Lungs: Breath sounds audible on auscultation bilateral lung saldaña. No wheezing , no rhonchi, no crepitations, no crackles. No pleural rub. CVS: S1, S2 heard on auscultation. Normal rate and rhythm. No murmur, no S3/S4 gallops. Abdomen: Soft, nontender, no distention. Bowel sounds appreciated on auscultation. Skin: No rashes, no induration, no erythema. Capillary refill less than 4 seconds. Extremities: Left leg appears shortened, internally rotated. No evidence of pedal edema bilateral lower extremities. No calf tenderness bilaterally. Palpable dorsalis pedis and posterior tibial pulses bilateral lower extremities. Assessment: Acute left hip intertrochanteric fracture, atrial fibrillation anticoagulated with Coumadin with therapeutic INR, tardive dyskinesia reportedly from long-standing Reglan use. Chronic constipation, Acute kidney injury, serum creatinine of 2.1, leukocytosis, chronic anemia, hyponatremia, hyperkalemia, T3 paraplegia, hypertension, diabetes mellitus, hyperlipidemia, hypothyroidism, GERD, history of asthma, depression, morbid obesity. Plan: Patient admitted to surgical floor. We will provide vitamin K 5 mg 1 and recheck INR tomorrow. Orthopedic surgery tentatively scheduled patient for surgery tomorrow afternoon and he has been placed nothing by mouth after midnight. Will recheck CBC, BMP in the morning. Hemoglobin A1c requested. Pain management with small doses of IV Dilaudid. We will continue home medication MiraLAX by mouth twice a day for constipation. Hospital Course Summary Disclaimer: The visit summary below is not to be considered part of the above Progress Note. Hospital Course: 04/11/18 Admit, inpatient status under the hospitalist service. Dr. Jefferson has been consulted -- hopeful for surgery tomorrow if INR <1.5. NPO at [place]. INR 2.72 -- will give Vit K 5 mg x1. Hold Coumadin. VENITA -- NS @ 100 mL/hr. Monitor for fluid overload. Hold Bumex, lisinopril. Reduce evening dose of gabapentin to 600 mg based on CrCl of 50. Monitor hgb; high risk for needing transfusion d/t chronic anemia. Leukocytosis -- poss. stress rxn. Monitor blood sugars. Check A1c. Hold insulin since he's NPO. Pain control -- Dilaudid 0.5 mg q2h PRN. (Note pt itches with morphine - could try administering with Benadryl). Advanced directives: spouse is DPOA. Requests DNR.
[2018-04-11] MEDS ORDERED: FALL RISK - PHARMACY CONSULT MC ONE (17:32)
[2018-04-11] MEDS: NS 1,000 ML IV SCH (17:40)
[2018-04-11] MEDS ORDERED: ALBUTEROL 2.5mg/0.5ml (0.5%) NEB AEROSOL PRN (17:47)
[2018-04-11] MEDS ORDERED: INHALER ASSIST DEVICE (Optichamber) MC ONE (18:03)
[2018-04-11 18:15] VITALS: BMI 40.3
[2018-04-11] MEDS: FLUTICASONE NASAL SPRAY 50mcg EA NOSTRIL SCH (20:15)
[2018-04-11] MEDS: BACLOFEN 10 MG TABLET PO SCH (20:15)
[2018-04-11] MEDS: SIMVASTATIN 10 MG TABLET PO SCH (20:15)
[2018-04-11] MEDS: HYDROCODONE/APAP 7.5 MG/325 MG TABLET PO PRN (20:20)
[2018-04-11] MEDS: BUDESONIDE INH.SOLN 0.5mg/2ml NEB AEROSOL SCH (20:55)
[2018-04-11] MEDS ORDERED: FLluticasone HFA 110mcg inhaler ORAL INH SCH (21:00)
[2018-04-12] MEDS: HYDROMORPHONE 2 MG/ML INJECTION IVP PRN ×2 (00:09→10:52)
[2018-04-12] MEDS: NS 1,000 ML IV SCH ×2 (03:09→14:38)
[2018-04-12] MEDS: OMEPRAZOLE 20 MG CAPSULE PO SCH (05:46)
[2018-04-12] MEDS: LEVOTHYROXINE 50 MCG TABLET PO SCH (05:46)
[2018-04-12] MEDS ORDERED: BUDESONIDE INH.SOLN 0.5mg/2ml NEB AEROSOL SCH (07:00)
[2018-04-12] MEDS: HYDROCODONE/APAP 7.5 MG/325 MG TABLET PO PRN ×2 (08:02→17:45)
[2018-04-12] MEDS: ALBUTEROL 2.5mg/3ml (0.083%) NEB AEROSOL PRN ×3 (08:15→19:43)
[2018-04-12] MEDS: BUDESONIDE INH.SOLN 0.5mg/2ml NEB AEROSOL SCH (08:15)
[2018-04-12] MEDS ORDERED: GABAPENTIN 300 MG CAPSULE PO SCH (09:00)
--- NOTE | 2018-04-12 10:59 | Progress Note ---
- Date 04/12/18 Subjective: Tyron is seen today in follow up. He is alert, but does not converse much with me. is at bedside, and provides history. Patient will likely need surgery moved back, and wants to be sure he can eat today if that is the case. He does have a suprapubic cath in place with significant sediment in urine- she reports he is on daily abx for prevention of infection. He has chronic low sodium, and is on fluid restriction at home. She denies any acute c/o or concerns. D/W Dr. Barraza today as well. Objective Vital signs: Temperature 98.1 F 04/12/18 07:31 Pulse Rate 64 04/12/18 08:41 Respiratory Rate 20 04/12/18 08:15 Blood Pressure 143/84 H 04/12/18 07:31 Pulse Oximetry 99 04/12/18 08:15 Height/Weight/BMI: Height 1.65 m Weight 111.5 kg Body Mass Index 40.3 - Constitutional Present: no acute distress, mild distress, morbidly obese, somnolent - Routine HEENT Exam Head: Present: normocephalic, atraumatic Eye: Present: EOMI, PERRL ENT: Present: mucous membranes dry - Routine Respiratory Exam Present: decreased breath sounds, diminished air movement. Absent: rales, rhonchi, crackles - Routine Cardiovascular Exam Present: RRR, S1, S2, no murmur - Routine Abdominal Exam Present: soft, normoactive bowel sounds, non distended, non tender - Routine Exam Comments: Chronic Suprapubic cath with dark ignacio urine, purulent, moffett sediment noted. - Routine Extremities Exam Present: no edema, non tender - Routine Back/Spine/Pelvis Exam Back/Spine: Absent: full ROM - Routine Musculoskeletal Exam Musculoskeletal: Present: limited range of motion. Absent: normal strength, moving extremities well - Routine Skin Exam Present: intact, dry, warm - Routine Neurological Exam Present: sensory deficit, motor deficit. Absent: moving all extremities Right hand contracture. Bilateral LE mild foot drop. - Routine Psychiatric Exam Present: cooperative Results - Labs CBC & Chem 7: 04/12/18 04:16 04/12/18 04:16 Assessment and Plan Assessment and Plan: Assessment Left hip IT fracture VENITA with creatinine of 2.1, baseline 1.2-1.5 Coagulopathy d/t Coumadin Hyperkalemia, POA Leukocytosis, POA Chronic anemia Hyponatremia, chronic T3 paraplegia Atrial fibrillation HTN dyslipidemia Hypothyroidism GERD Asthma Depression Morbid obesity BMI >40 Plan 04/12/18 Surgery to be postponed until tomorrow due to ongoing elevated INR. Vit K again today. SCr is slightly down today- continue IVF, hold diuretics. Check UA- appears to have significant UTI on exam, and ongoing leukocytosis. High risk for MDR organisms given chronic catheter- hold Keflex. Start cefepime. Tailor abx appropriately when culture comes back. Mild hyponatremia- continue IVF for now and observe. BP is trending up. Continue metoprolol. Holding JEMIMA due to elevated SCr, hyperkalemia Add low dose Norvasc and monito. Continue supportive home meds as appropriate. Repeat labs in AM. DVT Prophylaxis: Coumadin GI Prophylaxis: Omeprazole Resuscitation Status: Do Not Resuscitate - Physician Narrative Physician: Linda Barraza MD Narrative: Date: 04/12/18 Time: 1056 I have independently interviewed and examined patient. Patient chart reviewed. Case discussed with my MANUFACTURING ASSISTANT. Care plan developed with my supervision, agree with above. Patient resting in bed at the time of interview, patient's present at bedside. Subjectively, patient appears more awake and alert and responds appropriately to verbal queries. INR remains elevated at 2.5 today. Will provide 5 mg vitamin K subcutaneous repeat dose 1 and recheck INR this evening at 1800. Incidentally, patient's also reports that patient has been having chronic anemia for which she sees Dr. Nowak and used to get Epogen shots frequently however has not had an injection since October of this year. Physical exam: AAO to place and person, NAD PERRLA, EOMI S1 and S2 heard on auscultation, no murmurs Lungs clear to auscultation bilaterally, no wheezing, no crackles Abdomen soft, nontender, positive bowel sounds No edema bilateral lower extremities. Some involuntary hand movements noted bilateral upper extremities. Left lower extremity shortened. Assessment: Acute left hip intertrochanteric fracture, atrial fibrillation anticoagulated with Coumadin with therapeutic INR, tardive dyskinesia reportedly from long-standing Reglan use. Hyperkalemia, POA Chronic constipation , Acute kidney injury, serum creatinine of 1.9, leukocytosis, chronic anemia, hyponatremia, T3 paraplegia, hypertension, diabetes mellitus, hyperlipidemia, hypothyroidism, GERD, history of asthma, depression, morbid obesity. Plan: Case discussed with orthopedic surgery PA, Monica and recommendation to hold off on surgery for today. Vitamin K 5 mg subcutaneous 1 given this morning, will repeat INR in the evening at 1800 hrs. Leukocytosis, WBC count 12, 100. Serum creatinine improved slightly to 1.9. Continue IV fluids at 100 mL per hour. Patient on IV cefepime. Oral Keflex has been held. Hospital Course Summary Disclaimer: The visit summary below is not to be considered part of the above Progress Note. Hospital Course: 04/11/18 Admit, inpatient status under the hospitalist service. Dr. Jefferson has been consulted -- hopeful for surgery tomorrow if INR <1.5. NPO at [place]. INR 2.72 -- will give Vit K 5 mg x1. Hold Coumadin. VENITA -- NS @ 100 mL/hr. Monitor for fluid overload. Hold Bumex, lisinopril. Reduce evening dose of gabapentin to 600 mg based on CrCl of 50. Monitor hgb; high risk for needing transfusion d/t chronic anemia. Leukocytosis -- poss. stress rxn. Monitor blood sugars. Check A1c. Hold insulin since he's NPO. Pain control -- Dilaudid 0.5 mg q2h PRN. (Note pt itches with morphine - could try administering with Benadryl). Advanced directives: spouse is DPOA. Requests DNR. 04/12/18 Surgery to be postponed until tomorrow due to ongoing elevated INR. Vit K again today. SCr is slightly down today- continue IVF, hold diuretics. Check UA- appears to have significant UTI on exam, and ongoing leukocytosis. High risk for MDR organisms given chronic catheter- hold Keflex. Start cefepime. Tailor abx appropriately when culture comes back. Mild hyponatremia- continue IVF for now and observe. BP is trending up. Continue metoprolol. Holding JEMIMA due to elevated SCr, hyperkalemia Add low dose Norvasc and monito. Continue supportive home meds as appropriate. Repeat labs in AM.
[2018-04-12] MEDS ORDERED: RENAL DOSING - PHARMACY CONSULT MC ONE (11:07)
[2018-04-12] MEDS ORDERED: PHYTONADIONE 10mg/ml (Adult) INJECTION SQ ONE (11:30)
[2018-04-12] MEDS: BACLOFEN 10 MG TABLET PO SCH ×3 (11:39→21:00)
--- NOTE | 2018-04-12 11:50 | Pharmacy Consult- Renal Dosing ---
[facility] Consul-Renal Dosing - Laboratory Information 04/11/18 04/12/18 16:00 04:16 BUN 28.0 H 30.0 H Creatinine 2.1 H 1.9 H D - Consult Information RENAL DOSING: Today's SCr = 1.9 mg/dl. Calculated CrCl = 41 ml/min. Reviewed the current medications and there appears to be no issue with them today. Thanks, Nicola Dye, Pharmacist.
--- NOTE | 2018-04-12 11:56 | Orthopedic Progress Note ---
Date: Date: 04/12/18 Time: 1153 Subjective/Severity of Illness: Mr. Silver is sitting up in bed this morning. He is alert and awake but only answers with yes/no today. Spouse is at bedside, she reports his pain seems to be well controlled in regards to his right hip. She reports he is more confused since admission. His INR was 2.5 this morning, and will need to postpone surgery until tomorrow. Exam - Constitutional Vital Signs: Temperature 98.1 F 04/12/18 07:31 Pulse Rate 66 04/12/18 11:36 Respiratory Rate 20 04/12/18 08:15 Blood Pressure 130/91 H 04/12/18 11:36 Pulse Oximetry 99 04/12/18 08:15 General: cooperative, no acute distress, well developed, frail appearing Nutritional Appearance: well nourished Orientation: alert, confused - LLE General: other (left lower extremity shortened with internal rotation of hip) Vascular: dorsalis pedis pulse within normal limits, capillary refill <2 seconds - Respiratory Respiratory Exam: non-labored - Cardiac Cardiovascular exam: pedal pulses intact - Labs Result Diagrams: 04/12/18 04:16 04/12/18 04:16 Abnormal lab results 04/11/18 04/11/18 04/11/18 Range/Units 16:00 16:00 16:00 WBC 12.9 H (4.5-11.0) T/MM3 RBC 3.95 L (4.50-5.90) M/MM3 Hgb 12.3 L (13.5-17.5) GM/DL Hct 36.5 L (41-53) % Eos % (Auto) 5.4 H (0-4) % Lymph # (Auto) 5.0 H (1-4.8) T/MM3 Eos # (Auto) 0.7 H (0-0.5) T/MM3 INR 2.72 H (0.92-1.18) Sodium 135 L (136-146) MEQ/L Potassium 5.2 H (3.6-5) MEQ/L Chloride 97 L (98-107) MEQ/L BUN 28.0 H (9-20) MG/DL Creatinine 2.1 H (0.8-1.5) mg/dL Glucose (75-110) MG/DL Hemoglobin A1c (4.0-5.7) % Total Protein 8.6 H (6.3-8.2) g/dL Globulin 4.1 H (2.4-3.6) G/DL 04/11/18 04/12/18 04/12/18 Range/Units 16:00 04:16 04:16 WBC 12.1 H (4.5-11.0) T/MM3 RBC 3.82 L (4.50-5.90) M/MM3 Hgb 11.8 L (13.5-17.5) GM/DL Hct 35.2 L (41-53) % Eos % (Auto) (0-4) % Lymph # (Auto) (1-4.8) T/MM3 Eos # (Auto) (0-0.5) T/MM3 INR 2.58 H (0.92-1.18) Sodium (136-146) MEQ/L Potassium (3.6-5) MEQ/L Chloride (98-107) MEQ/L BUN (9-20) MG/DL Creatinine (0.8-1.5) mg/dL Glucose (75-110) MG/DL Hemoglobin A1c 6.2 H (4.0-5.7) % Total Protein (6.3-8.2) g/dL Globulin (2.4-3.6) G/DL 04/12/18 Range/Units 04:16 WBC (4.5-11.0) T/MM3 RBC (4.50-5.90) M/MM3 Hgb (13.5-17.5) GM/DL Hct (41-53) % Eos % (Auto) (0-4) % Lymph # (Auto) (1-4.8) T/MM3 Eos # (Auto) (0-0.5) T/MM3 INR (0.92-1.18) Sodium 133 L (136-146) MEQ/L Potassium 5.1 H (3.6-5) MEQ/L Chloride (98-107) MEQ/L BUN 30.0 H (9-20) MG/DL Creatinine 1.9 H D (0.8-1.5) mg/dL Glucose 143 H (75-110) MG/DL Hemoglobin A1c 6.4 H (4.0-5.7) % Total Protein (6.3-8.2) g/dL Globulin (2.4-3.6) G/DL H & H 04/11/18 04/12/18 Range/Units 16:00 04:16 Hgb 12.3 L 11.8 L (13.5-17.5) GM/DL Hct 36.5 L 35.2 L (41-53) % Coagulation 04/11/18 04/12/18 Range/Units 16:00 04:16 INR 2.72 H 2.58 H (0.92-1.18) Orthopedic Assessment and Plan (1) Intertrochanteric fracture of left hip Status: Acute Qualifiers: Encounter type: initial encounter Fracture type: closed Assessment and Plan: Discussed with Dr. Mora and Dr. Jefferson. Patient to receive Vit K and possible FFP pending INR results. Hospitalist managing medically. May eat today and will plan ORIF of left IT hip fracture tomorrow. NPO after midnight. Hospital Course Summary Disclaimer: The visit summary below is not to be considered part of the above Progress Note. Hospital Course: 04/11/18 Admit, inpatient status under the hospitalist service. Dr. Jefferson has been consulted -- hopeful for surgery tomorrow if INR <1.5. NPO at [place]. INR 2.72 -- will give Vit K 5 mg x1. Hold Coumadin. VENITA -- NS @ 100 mL/hr. Monitor for fluid overload. Hold Bumex, lisinopril. Reduce evening dose of gabapentin to 600 mg based on CrCl of 50. Monitor hgb; high risk for needing transfusion d/t chronic anemia. Leukocytosis -- poss. stress rxn. Monitor blood sugars. Check A1c. Hold insulin since he's NPO. Pain control -- Dilaudid 0.5 mg q2h PRN. (Note pt itches with morphine - could try administering with Benadryl). Advanced directives: spouse is DPOA. Requests DNR. 04/12/18 Surgery to be postponed until tomorrow due to ongoing elevated INR. Vit K again today. SCr is slightly down today- continue IVF, hold diuretics. Check UA- appears to have significant UTI on exam, and ongoing leukocytosis. High risk for MDR organisms given chronic catheter- hold Keflex. Start cefepime. Tailor abx appropriately when culture comes back. Mild hyponatremia- continue IVF for now and observe. BP is trending up. Continue metoprolol. Holding JEMIMA due to elevated SCr, hyperkalemia Add low dose Norvasc and monito. Continue supportive home meds as appropriate. Repeat labs in AM.
[2018-04-12] MEDS: POLYETHYL GLYCOL 3350 17gm PACKET PO SCH (12:26)
[2018-04-12] MEDS: CITALOPRAM 20 MG TABLET PO SCH (12:26)
[2018-04-12] MEDS: CEFEPIME 1 GM in NS 100 ML IV SCH ×2 (12:27→20:42)
[2018-04-12] MEDS: AMLODIPINE 2.5 MG TABLET PO SCH (12:27)
[2018-04-12] MEDS: VENLAFAXINE 75 MG TABLET PO SCH (12:27)
[2018-04-12] MEDS: TAMSULOSIN 0.4 MG CAPSULE PO SCH (12:27)
[2018-04-12] MEDS: FLUTICASONE NASAL SPRAY 50mcg EA NOSTRIL SCH ×2 (12:28→21:00)
[2018-04-12] MEDS: VALBENAZINE TOSYLATE 80 MG PO SCH (12:29)
[2018-04-12] MEDS: TOLTERODINE 2 MG TABLET PO SCH (21:00)
[2018-04-12] MEDS: SIMVASTATIN 10 MG TABLET PO SCH (21:00)
[2018-04-12] MEDS: GABAPENTIN 300 MG CAPSULE PO SCH (21:00)
[2018-04-12] MEDS: INSULIN ASPART 100unit/ml INJECTION SQ PRN (21:31)
[2018-04-13] MEDS: NS 1,000 ML IV SCH ×4 (00:39→19:14)
[2018-04-13] MEDS: CEFEPIME 1 GM in NS 100 ML IV SCH ×3 (02:33→19:14)
[2018-04-13] MEDS: HALOPERIDOL 5 MG/ML INJECTION IVP PRN ×2 (03:20→20:38)
[2018-04-13] MEDS: LEVOTHYROXINE 50 MCG TABLET PO SCH (05:35)
[2018-04-13] MEDS: OMEPRAZOLE 20 MG CAPSULE PO SCH (05:35)
[2018-04-13] MEDS: ALBUTEROL 2.5mg/3ml (0.083%) NEB AEROSOL PRN ×2 (07:20→21:19)
[2018-04-13] MEDS: BUDESONIDE INH.SOLN 0.5mg/2ml NEB AEROSOL SCH ×2 (07:20→21:19)
[2018-04-13] MEDS: GABAPENTIN 300 MG CAPSULE PO SCH ×2 (08:58→20:31)
[2018-04-13] MEDS: TOLTERODINE 2 MG TABLET PO SCH ×2 (08:58→20:30)
[2018-04-13] MEDS: TAMSULOSIN 0.4 MG CAPSULE PO SCH (08:59)
[2018-04-13] MEDS: VENLAFAXINE 75 MG TABLET PO SCH (08:59)
[2018-04-13] MEDS: CITALOPRAM 20 MG TABLET PO SCH (08:59)
[2018-04-13] MEDS: HYDROCODONE/APAP 7.5 MG/325 MG TABLET PO PRN ×2 (08:59→20:31)
[2018-04-13] MEDS: BACLOFEN 10 MG TABLET PO SCH ×3 (08:59→20:30)
[2018-04-13] MEDS: FLUTICASONE NASAL SPRAY 50mcg EA NOSTRIL SCH ×2 (09:00→20:33)
[2018-04-13] MEDS: POLYETHYL GLYCOL 3350 17gm PACKET PO SCH (09:00)
[2018-04-13] MEDS: AMLODIPINE 2.5 MG TABLET PO SCH (09:00)
[2018-04-13] MEDS: VALBENAZINE TOSYLATE 80 MG PO SCH (09:00)
[2018-04-13] MEDS ORDERED: LIDOCAINE 1% (10mg/ml) 30ml SDV INJ ONE (09:26)
[2018-04-13] MEDS ORDERED: BUPIVACAINE 0.5% (5mg/ml) PF 30ml INJ SDV ID ONE (11:16)
[2018-04-13] MEDS ORDERED: LIDOCAINE 1% (10mg/ml) 30ml SDV INJ INFIL ONE (11:16)
[2018-04-13] MEDS ORDERED: FAMOTIDINE PB 20 MG/50 ML BAG IV ONE (11:35)
[2018-04-13] MEDS ORDERED: KETAMINE 500 MG/10 ML INJECTION ONE (11:48)
[2018-04-13] MEDS ORDERED: FentaNYL 100 MCG/2 ML INJECTION ONE (11:48)
[2018-04-13] MEDS ORDERED: PROPOFOL 20 ML ONE (11:49)
[2018-04-13] MEDS ORDERED: ROCURONIUM 50 MG/5 ML INJECTION IVP ONE (11:49)
[2018-04-13] MEDS ORDERED: SUCCINYLCHOLINE 20mg/mL 10mL INJECTION ONE (11:54)
[2018-04-13] MEDS ORDERED: FentaNYL 100 MCG/2 ML INJECTION IVP PRN (12:18)
[2018-04-13] MEDS ORDERED: ONDANSETRON 4 MG/2 ML INJECTION IVP PRN (12:18)
--- NOTE | 2018-04-13 12:18 | Anesthesia Preoperative Report ---
Anesthesia Preoperative Record - Date and Time Date: 04/13/18 Preoperative Diagnosis: hip fracture NPO Since Date: 04/12/18 NPO Since Time: 19:00 Allergies/Adverse Reactions: Allergies Allergy/AdvReac Type Severity Reaction Status Date / Time Horse/Equine Containing Allergy Unknown Verified 04/11/18 14:56 Products meprobamate Allergy Unknown Verified 04/11/18 14:56 Latex, Natural Rubber Allergy Verified 04/12/18 17:58 tramadol AdvReac Unknown HIVES Verified 04/11/18 14:56 amitriptyline AdvReac Verified 04/11/18 14:56 - Vital Signs Vital Signs: Temperature 99.6 F 04/13/18 11:04 Pulse Rate 65 04/13/18 11:04 Respiratory Rate 17 04/13/18 11:04 Blood Pressure 124/66 04/13/18 11:04 Pulse Oximetry 94 04/13/18 11:04 Height and Weight: Height 1.65 m Weight 115.6 kg Body Mass Index 40.3 - Medications Inpatient Medications: Current Medications Hydrocodone Bitart/Acetaminophen ([place] 7.5/325) 1 tab PO TID PRN PRN Reason: Pain Last Admin: 04/13/18 08:59 Dose: 1 tab Albuterol Sulfate (Proventil Neb (0.083%)) 2.5 mg AEROSOL RTQID PRN Last Admin: 04/13/18 07:20 Dose: 2.5 mg Amlodipine Besylate (Norvasc) 2.5 mg PO DAILY [facility] Last Admin: 04/13/18 09:00 Dose: 2.5 mg Baclofen (Lioresal) 10 mg PO TID [facility] Last Admin: 04/13/18 08:59 Dose: 10 mg Budesonide (Pulmicort Inhalation) 0.5 mg AEROSOL RTBID [facility] Last Admin: 04/13/18 07:20 Dose: 0.5 mg Bupivacaine HCl (Marcaine Pf 0.5% Inj) 30 ml ID O ONE Stop: 04/13/18 11:17 Cephalexin HCl (Keflex 250 Mg) 250 mg PO DAILY [facility] Last Admin: 04/12/18 11:26 Dose: Not Given Citalopram Hydrobromide (Celexa) 20 mg PO DAILY [facility] Last Admin: 04/13/18 08:59 Dose: 20 mg Fluticasone Propionate (Flonase) 1 spray EA NOSTRIL BID [facility] Last Admin: 04/13/18 09:00 Dose: 1 spray Gabapentin (Neurontin) 300 mg PO BID [facility] Last Admin: 04/13/18 08:58 Dose: 300 mg Haloperidol Lactate (Haldol) 2 mg IVP Q4H PRN PRN Reason: Agitation Last Admin: 04/13/18 03:20 Dose: 2 mg Hydromorphone HCl (Dilaudid) 0.5 mg IVP Q2H PRN PRN Reason: Pain Last Admin: 04/12/18 10:52 Dose: 0.5 mg Sodium Chloride (Normal Saline) 1,000 mls @ 100 mls/hr IV .Q10H [facility] Last Infusion: 04/13/18 11:05 Dose: 100 mls/hr Cefepime HCl 1 gm/ Sodium (Chloride) 100 mls @ 200 mls/hr IV Q8H [facility] Last Admin: 04/13/18 11:08 Dose: 200 mls/hr Insulin Aspart (Novolog) 1 - 5 unit SQ SS PRN; Protocol PRN Reason: Hyperglycemia Last Admin: 04/12/18 21:31 Dose: 3 unit Levothyroxine Sodium (Synthroid) 50 mcg PO ACB [facility] Last Admin: 04/13/18 05:35 Dose: Not Given Lidocaine HCl (Xylocaine-Mpf 1%) 30 ml INFIL O ONE Stop: 04/13/18 11:17 Lorazepam (Ativan Inj) 0.5 mg IVP Q4H PRN PRN Reason: Anxiety Last Admin: 04/13/18 00:50 Dose: 0.5 mg Metoprolol Tartrate (Lopressor) 25 mg PO BIDWM [facility] Last Admin: 04/13/18 08:59 Dose: 25 mg Pom (Valbenazine Tosylate [Ingrezza] 80 Mg) 80 mg PO DAILY [facility] Last Admin: 04/13/18 09:00 Dose: 80 mg Omeprazole (Prilosec) 20 mg PO ACB [facility] Last Admin: 04/13/18 05:35 Dose: Not Given Ondansetron HCl (Zofran) 4 mg IVP Q6H PRN PRN Reason: Nausea &/or vomiting Last Admin: 04/11/18 23:58 Dose: 4 mg Polyethylene Glycol (Miralax) 17 gm PO DAILY [facility] Last Admin: 04/13/18 09:00 Dose: Not Given Simvastatin (Zocor) 10 mg PO [facility] Last Admin: 04/12/18 21:00 Dose: 10 mg Sodium Chloride (Iv Flush) 10 - 80 ml IVF PRN PRN PRN Reason: Flushing Last Admin: 04/11/18 17:39 Dose: 10 ml Tamsulosin HCl (Flomax) 0.4 mg PO DAILY [facility] Last Admin: 04/13/18 08:59 Dose: 0.4 mg Tolterodine Tartrate (Detrol) 2 mg PO BID [facility] Last Admin: 04/13/18 08:58 Dose: 2 mg Venlafaxine HCl (Effexor) 75 mg PO DAILY [facility] Last Admin: 04/13/18 08:59 Dose: 75 mg Home Medications: Home Medications Medication Instructions Recorded Confirmed Type Tamsulosin HCl [Flomax] 0.4 mg PO DAILY #0 07/21/10 04/11/18 History Baclofen [Lioresal] 10 mg PO TID 04/11/18 04/11/18 History Bumetanide Tab [Bumex 0.5 mg Tab] 0.5 mg PO DAILY 04/11/18 04/11/18 History CephALEXin [Keflex 250 mg] 250 mg PO DAILY 04/11/18 04/11/18 History Citalopram [Celexa] 20 mg PO DAILY 04/11/18 04/11/18 History Fluticasone HFA [Flovent Hfa 110 1 puff INH BID 04/11/18 04/11/18 History mcg] Fluticasone Nasal [place] [Flonase] 1 spray ADONAY BID 04/11/18 04/11/18 History Gabapentin 300 mg PO DAILY 04/11/18 04/11/18 History Gabapentin [Neurontin] 900 mg PO HS 04/11/18 04/11/18 History Hydrocodone/APAP 7.5/325 [[place] 1 tab PO TID PRN 04/11/18 04/11/18 History 7.5/325] Insulin Aspart [NovoLOG] 1 - 2 unit SQ AC 04/11/18 04/11/18 History Levothyroxine Tab [Synthroid] 50 mcg PO ACB 04/11/18 04/11/18 History Lisinopril [Prinivil] 5 mg PO DAILY 04/11/18 04/11/18 History Metoprolol Tartrate [Lopressor] 25 mg PO BIDWM 04/11/18 04/11/18 History Multivitamin [One Daily] 1 each PO DAILY 04/11/18 04/11/18 History Omeprazole [Prilosec] 20 mg PO DAILY 04/11/18 04/11/18 History PEG 3350 17gm PACKET [Miralax] 17 gm PO DAILY 04/11/18 04/11/18 History Simvastatin [Zocor] 10 mg PO HS 04/11/18 04/11/18 History Tolterodine 2 mg [Detrol] 2 mg PO BID 04/11/18 04/11/18 History Valbenazine Tosylate [Ingrezza] 80 mg PO DAILY 04/11/18 04/11/18 History Venlafaxine [Effexor] 75 mg PO DAILY 04/11/18 04/11/18 History Warfarin Sodium 2 mg PO MO 04/11/18 04/11/18 History Warfarin Sodium 4 mg PO 6XW 04/11/18 04/11/18 History Is Patient on Beta Amy?: Yes Beta Amy Last Dose Date/Time: metoprolol - Medical History Respiratory: Reports: Asthma, Sleep Apnea Cardiovascular: Reports: Arrhythmia, Congestive Heart Failure, Hypertension, Other (pacemaker) Gastrointestional: Reports: Gastroesophageal Reflux Disease, Morbid Obesity, Other (chronic constipation) Neuro/Musculoskeletal: Reports: Back Problems, Paralysis Renal/Endocrine: Reports: Diabetes Mellitus Type 2 - Surgical History Cardiac Surgeries/Treatments: Reports: Pacemaker Respiratory Surgery/Treatments: Reports: CPAP Use Surgery/Treatment: REPORT: Other (suprapubic catheter) Musculoskeletal Surgery/Tx: Reports: Orthopedic Surgery (10 back surgeries, T3-S ) Anesthesia Reactions: None Hx Family Anesthesia Reaction: No History of Motion Sickness: No - Social History Smoking Status: Never smoker Hx Chewing Tobacco Use: No Second Hand Exposure: No Substance Use Type: does not use Alcohol Intake Frequency: does not drink - Pertinent Findings Laboratory: CBC and BMP 04/13/18 04:30 04/13/18 04:30 BMP 04/13/18 04:30 Sodium 136 Potassium 4.8 Chloride 102 Carbon Dioxide 24 BUN 24.0 H Creatinine 1.5 D Glucose 139 H Calcium 8.6 Liver Function 04/13/18 Range/Units 04:30 Albumin 4.1 (3.5-5.0) g/dL Urine 04/12/18 Range/Units 11:31 Urine Color Yellow (YELLOW) Urine Clarity Cloudy Urine pH 7.0 (5.0-8.0) Ur Specific [place] 1.015 (1.015-1.025) Urine Protein 1+ A (NEGATIVE) Urine Glucose (UA) Negative (NEGATIVE) EKG: A-fib Paced: 50% - Physical Exam Respiratory Exam: Present: lungs clear, bilateral breath sounds equal Cardiovascular Exam: Present: irregularly irregular - Airway Assessment Mallampati Score: IV TMD: 3 Fingerbreadths Neck Extension: poor Teeth: chipped teeth/crowns Overall Assessment: may be difficult intubation (per stated, " ripped his throat the last time he was intubated.") - ASA ASA Score: 4 - Plan Anesthesia: General Inhalation Gases - Discussion Discussion: Discussed risks/options/alternatives of anesthesia and questions answered. Patient consents. Nursing pain assessment noted. Present for Discussion: spouse, children Attestation Statement: Prior to the delivery of any anesthetic medication, I examined the patient, developed the plan, obtained the patient's consent and discussed the risk and benefits of the procedure with the patient/guardian. - Additional Information Seen by Anesthesia: Yes
--- NOTE | 2018-04-13 13:44 | Anesthesia Postoperative Note ---
- Date and Time Date: 04/13/18 Time: 13:44 - Status Patient Participated in Evaluation: Patient Participated in Person Vital Signs: Temperature 99.6 F 04/13/18 11:04 Pulse Rate 65 04/13/18 11:04 Respiratory Rate 17 04/13/18 11:04 Blood Pressure 124/66 04/13/18 11:04 Pulse Oximetry 94 04/13/18 11:04 Respiratory Function: Airway Patent, Regular Respirations Cardiovascular Function: Regular Pulse Mental Status: Alert and Oriented (awake and alert. Neurological status unchanged from preop) Pain Intensity: 0 (unable to assess ) Hydration: IV Infusing Complications During Recover: None Apparent - Follow-Up Instructions Instructions: Per Surgeon
[2018-04-13] MEDS ORDERED: WARFARIN - PHARMACY CONSULT MC ONE (14:07)
[2018-04-13] MEDS ORDERED: NOZIN NASAL SWAB NAS ONE (14:07)
--- NOTE | 2018-04-13 14:08 | Remote Fluorsocopy Report ---
Indication: ORIF LEFT HIP PROCEDURE: RF hip LT 2 view: Encounter: Initial Comparison: None. Findings: Intraoperative spot views of the left hip demonstrate intraoperative placement of a left dynamic hip screw with intramedullary frankie. The alignment appears near-anatomic with the lesser trochanter displaced superiorly and medially. Impression: Near-anatomic alignment status post ORIF of the left hip. .
[2018-04-13] MEDS: NOZIN NASAL SWAB NAS SCH ×2 (14:20→22:09)
--- NOTE | 2018-04-13 14:59 | Operative Note ---
DATE 04/13/2018 PREOPERATIVE DIAGNOSIS Left three-part intertrochanteric hip fracture. POSTOPERATIVE DIAGNOSIS Left three-part intertrochanteric hip fracture. PROCEDURE Open reduction, intramedullary fixation of left intertrochanteric hip fracture. SURGEON Andrew Jefferson MD DRAGLINE OILER Monica Black APRN ANESTHESIA General COMPLICATIONS None EBL AND FLUIDS Please see Anesthetic records. DESCRIPTION OF PROCEDURE Mr. Silver and his left hip were identified and marked in the preoperative holding area. He was brought back to the operating suite and placed supine on the fracture table after he was placed under general anesthesia. Both feet were placed in well-padded traction boots. Left leg was placed into traction. Right leg was placed into extension without traction. The left lower extremity was pepped and draped in my normal sterile fashion. Time-out was performed. Fluoroscopic imaging was used throughout the case. Local anesthesia was used at every incision site. I started with a 3 cm incision proximal to the greater trochanter. The proximal femur was then opened over a guide frankie. I then passed a short gamma nail into the proximal femur. A lag screw was placed into a center-center location to the femoral head using the aiming arm over a guide frankie. The lag screw was then locked proximally. Aiming arm was then used to place a distal interlocking screw. Multiple fluoroscopic images were taken including live shots to ensure good fracture reduction and hardware placement. Aiming arm was then removed. All wounds were thoroughly irrigated before being closed in layers. Sterile dressings were placed. The patient was taken out of traction, the traction boots were removed. He was then allowed to awaken from general anesthesia and taken to the recovery room under the care of Anesthesia. He tolerated the procedure well. There were no complications. HOLLY
--- NOTE | 2018-04-13 15:18 | Progress Note ---
- Date 04/13/18 Subjective: Patient is seen today postoperatively while resting in bed, family at the bedside. Patient is sleeping during examination and does not arouse during conversation or exam. does note given his significant dementia he is often confused. He is currently on 3 liters of oxygen by nasal cannula postoperatively , and does not appear to be in any acute distress. 's operative vital signs are stable. He does have a chronic priest catheter, suprapubic. Objective Vital signs: Temperature 96.6 F L 04/13/18 14:13 Pulse Rate 70 04/13/18 14:58 Respiratory Rate 18 04/13/18 14:43 Blood Pressure 132/70 04/13/18 14:58 Pulse Oximetry 98 04/13/18 14:58 Height/Weight/BMI: Height 1.65 m Weight 115.6 kg Body Mass Index 40.3 - Constitutional Present: no acute distress, well nourished, well developed - Routine HEENT Exam ENT: Present: mucous membranes moist, dentition normal - Routine Respiratory Exam Present: CTA bilaterally. Absent: wheezes - Routine Cardiovascular Exam Present: RRR, S1, S2. Absent: murmur - Routine Abdominal Exam Present: soft, normoactive bowel sounds, non distended. Absent: tenderness - Routine Skin Exam Present: intact, dry, warm - Routine Neurological Exam Present: altered mental status - Routine Lymphatic Exam Lymphatic: Absent: adenopathy - Routine Psychiatric Exam Present: cooperative Results - Labs CBC & Chem 7: 04/13/18 04:30 04/13/18 04:30 Microbiology Results: Microbiology 04/12/18 11:31 Urine, Suprapubic Urine Culture - Preliminary Gram Negative Honorio Assessment and Plan Assessment and Plan: Assessment Left hip IT fracture VENITA with creatinine of 2.1, baseline 1.2-1.5 Coagulopathy d/t Coumadin Hyperkalemia, POA Leukocytosis, POA Chronic anemia Hyponatremia, chronic T3 paraplegia Atrial fibrillation HTN dyslipidemia Hypothyroidism GERD Asthma Depression Morbid obesity BMI >40 Plan 04/13/18 Underwent ORIF left intertrochanteric hip fracture under the care of Dr. Jefferson without complication. Will work on weaning down oxygen as able. Patient does not utilize oxygen at home chronically. Urine culture is positive for Gram negative for growth. However, this is a chronic suprapubic catheter. At this time, we will continue with treatment utilizing cefepime for antimicrobial coverage. Given mild leukocytosis. Blood pressure is better controlled. started of norvasc yesterday. Home JEMIMA inhibitor on hold day. Monitor for fluid retention. Given he is receiving IV fluids and home diuretic is on hold Monitor daily labs to follow renal function, electrolytes and blood counts. does note she is not sure he will require significant rehabilitation. Given that he does not ambulate or stand at baseline DVT Prophylaxis: SCD's, Lovenox GI Prophylaxis: Omeprazole Resuscitation Status: Do Not Resuscitate - Physician Narrative Physician: Linda Barraza MD Narrative: Date: 04/13/18 Time: 1512 I have independently interviewed and examined patient. Patient chart reviewed. Case discussed with my OIL GAS AND PIPE TESTER. Care plan developed with my supervision, agree with above. Patient evaluated at bedside postoperatively. Patient's and daughter present at bedside. Previous history of dementia, patient noted to have some confusion and believes he is in "[employer]" and patient appears to be using both upper extremities in fixing something, previous occupation of [employer]. Does not appear in significant distress. Physical exam: Drowsy, easily arousable on verbal queries oriented to self. However oriented to self however not oriented to place, time or person. Does not appear in significant distress PERRLA, EOMI S1 and S2 heard on auscultation, no murmurs Lungs clear to auscultation bilaterally, no wheezing, no crackles Abdomen soft, nontender, positive bowel sounds. Suprapubic catheter in place. No edema bilateral lower extremities. Assessment: Acute left hip intertrochanteric fracture, atrial fibrillation anticoagulated with Coumadin, tardive dyskinesia reportedly from long-standing Reglan use. Hyperkalemia, POA Chronic constipation, Acute kidney injury, serum creatinine of 1.9, leukocytosis, chronic anemia, hyponatremia, T3 paraplegia, hypertension, diabetes mellitus, hyperlipidemia, hypothyroidism, GERD, history of asthma, depression, morbid obesity. Plan: After 2 doses of vitamin K 5 mg subcutaneous provided during course of hospital stay, INR last evening improved to 1.47. At this point, patient was medically optimized for surgery. Patient was taken for surgery this morning, status post ORIF left femur neck intertrochanteric fracture performed by Dr. Jefferson. Patient will be monitored closely, supplemental oxygen as needed. Continue IV cefepime. Cautious IV fluids, will monitor intake and output, daily weights. Once patient is more alert and able to follow commands, patient needs physical therapy evaluation and may require short-term inpatient rehabilitation. Hospital Course Summary Disclaimer: The visit summary below is not to be considered part of the above Progress Note. Hospital Course: 04/11/18 Admit, inpatient status under the hospitalist service. Dr. Jefferson has been consulted -- hopeful for surgery tomorrow if INR <1.5. NPO at [place]. INR 2.72 -- will give Vit K 5 mg x1. Hold Coumadin. VENITA -- NS @ 100 mL/hr. Monitor for fluid overload. Hold Bumex, lisinopril. Reduce evening dose of gabapentin to 600 mg based on CrCl of 50. Monitor hgb; high risk for needing transfusion d/t chronic anemia. Leukocytosis -- poss. stress rxn. Monitor blood sugars. Check A1c. Hold insulin since he's NPO. Pain control -- Dilaudid 0.5 mg q2h PRN. (Note pt itches with morphine - could try administering with Benadryl). Advanced directives: spouse is DPOA. Requests DNR. 04/12/18 Surgery to be postponed until tomorrow due to ongoing elevated INR. Vit K again today. SCr is slightly down today- continue IVF, hold diuretics. Check UA- appears to have significant UTI on exam, and ongoing leukocytosis. High risk for MDR organisms given chronic catheter- hold Keflex. Start cefepime. Tailor abx appropriately when culture comes back. Mild hyponatremia- continue IVF for now and observe. BP is trending up. Continue metoprolol. Holding JEMIMA due to elevated SCr, hyperkalemia Add low dose Norvasc and monito. Continue supportive home meds as appropriate. Repeat labs in AM. 04/13/18 Underwent ORIF left intertrochanteric hip fracture under the care of Dr. Jefferson without complication. Will work on weaning down oxygen as able. Patient does not utilize oxygen at home chronically. Urine culture is positive for Gram negative for growth. However, this is a chronic suprapubic catheter. At this time, we will continue with treatment utilizing cefepime for antimicrobial coverage. Given mild leukocytosis. Blood pressure is better controlled. started of norvasc yesterday. Home JEMIMA inhibitor on hold day. Monitor for fluid retention. Given he is receiving IV fluids and home diuretic is on hold Monitor daily labs to follow renal function, electrolytes and blood counts. does note she is not sure he will require significant rehabilitation. Given that he does not ambulate or stand at baseline
--- NOTE | 2018-04-13 15:51 | Pharmacy Consult ---
Pharmacy Consult-Warfarin - Laboratory Information 04/11/18 04/11/18 04/11/18 16:00 16:00 16:00 Hgb 12.3 L Hct 36.5 L INR 2.72 H AST 27 ALT 20 Albumin 4.5 04/12/18 04/12/18 04/12/18 04:16 04:16 18:16 Hgb 11.8 L Hct 35.2 L INR 2.58 H 1.47 H AST ALT Albumin 04/13/18 04/13/18 04/13/18 04:30 04:30 14:58 Hgb 11.3 L Hct 34.0 L INR 1.06 AST ALT Albumin 4.1 - Consult Information COUMADIN CONSULT (Initial): Dx:Hip Fracture - ORIF left hip Baseline INR = 1.47 73 yr old male patient 5'5" 115.6 kg on warfarin for A-Fib. Patient's home med warfarin dose is 4 mg po 6 x weeka and 2 mg once a week. At prior to surgery the INR as 2.72 so 5 mg Vitamin K on 04/11 and again on 04/12. (10 mg total dose) The patient is currently receiving antibiotic - Cefepime 1 gm IV q8hrs which can alter the INR (increase it) at the same time the vitamin K will be affecting the INR for a couple of days (decrease it) Lovenox 40 mg SQ daily is ordered until the patient's INR is back in the therapeutic range of 2-3. Will give Warfarin 5 mg today. Pharmacy will continue to monitor the INR and adjust the warfarin dose as needed.+. Thank you. Paula Ramirez, [facility]
[2018-04-13] MEDS ORDERED: WARFARIN 5 MG TABLET PO ONE (16:30)
[2018-04-13] MEDS: INSULIN ASPART 100unit/ml INJECTION SQ PRN (18:08)
[2018-04-13] MEDS: SIMVASTATIN 10 MG TABLET PO SCH (20:30)
[2018-04-13] MEDS: DOCUSATE SODIUM 100 MG CAPSULE PO SCH (20:31)
[2018-04-13] MEDS: SENNOSIDES 8.6 MG TABLET PO SCH (20:33)
[2018-04-13] MEDS: ENOXAPARIN 40 MG/0.4 ML INJECTION SQ SCH (20:33)
[2018-04-14] MEDS: CEFEPIME 1 GM in NS 100 ML IV SCH ×2 (02:17→11:27)
[2018-04-14] MEDS: NOZIN NASAL SWAB NAS SCH ×3 (05:51→21:18)
[2018-04-14] MEDS: OMEPRAZOLE 20 MG CAPSULE PO SCH (05:51)
[2018-04-14] MEDS: LEVOTHYROXINE 50 MCG TABLET PO SCH (05:51)
[2018-04-14] MEDS: NS 1,000 ML IV SCH (05:52)
[2018-04-14] MEDS: HYDROCODONE/APAP 7.5 MG/325 MG TABLET PO PRN ×3 (05:59→20:15)
[2018-04-14] MEDS: INSULIN ASPART 100unit/ml INJECTION SQ PRN ×3 (06:06→21:17)
[2018-04-14] MEDS: BUDESONIDE INH.SOLN 0.5mg/2ml NEB AEROSOL SCH ×2 (07:26→20:32)
--- NOTE | 2018-04-14 08:05 | Pharmacy Consult ---
Pharmacy Consult-Warfarin - Laboratory Information 04/11/18 04/11/18 04/11/18 16:00 16:00 16:00 Hgb 12.3 L Hct 36.5 L INR 2.72 H AST 27 ALT 20 Albumin 4.5 04/12/18 04/12/18 04/12/18 04:16 04:16 18:16 Hgb 11.8 L Hct 35.2 L INR 2.58 H 1.47 H AST ALT Albumin 04/13/18 04/13/18 04/13/18 04:30 04:30 14:58 Hgb 11.3 L Hct 34.0 L INR 1.06 AST ALT Albumin 4.1 04/14/18 04/14/18 04:10 04:10 Hgb 9.6 L D Hct 29.2 L D INR 1.10 AST ALT Albumin - Consult Information Low INR from residual effects of vitalmin K. Warfarin 5mg ordered for today at noon. Thank you.
--- NOTE | 2018-04-14 08:31 | Orthopedic Progress Note ---
Date: Date: 04/14/18 Time: 823 Subjective/Severity of Illness: Mr. Silver is post op day 1 ORIF left IT hip fracture with short gamma nail. Pain of left hip has been well controlled and improved from pre-operatively. He was able to sleep better last night per and was less agitated and confused. Patient is groggy this morning, will arouse easily for short periods. Hgb 9.6. Orthopedic Exam Vital signs: Temperature 97.5 F 04/14/18 02:57 Pulse Rate 74 04/14/18 03:00 Respiratory Rate 12 04/14/18 07:26 Blood Pressure 161/81 H 04/14/18 02:57 Pulse Oximetry 100 04/14/18 07:26 - Constitutional General Appearance: Present: alert, no acute distress - Respiratory Exam Present: non-labored - Cardiovascular Exam Present: pedal pulses intact - Extremities Exam Present: pulses intact - Dressing Dressing: dry, intact, no drainage Comments: 3 telfa dressings left hip - Lymphatic Lymphatic: Absent: adenopathy - Neurological Exam Present: intact to light touch, no deficits - Psychiatric Exam Present: alert, oriented - Labs Result Diagrams: 04/14/18 04:10 04/14/18 04:10 Abnormal lab results 04/14/18 04/14/18 Range/Units 04:10 04:10 RBC 3.12 L (4.50-5.90) M/MM3 Hgb 9.6 L D (13.5-17.5) GM/DL Hct 29.2 L D (41-53) % Glucose 131 H (75-110) MG/DL Calcium 8.3 L (8.4-10.2) MG/DL H & H 04/11/18 04/12/18 04/13/18 Range/Units 16:00 04:16 04:30 Hgb 12.3 L 11.8 L 11.3 L (13.5-17.5) GM/DL Hct 36.5 L 35.2 L 34.0 L (41-53) % 04/14/18 Range/Units 04:10 Hgb 9.6 L D (13.5-17.5) GM/DL Hct 29.2 L D (41-53) % Coagulation 04/11/18 04/12/18 04/12/18 Range/Units 16:00 04:16 18:16 INR 2.72 H 2.58 H 1.47 H (0.92-1.18) 04/13/18 04/14/18 Range/Units 14:58 04:10 INR 1.06 1.10 (0.92-1.18) Orthopedic Assessment and Plan (1) Intertrochanteric fracture of left hip Status: Acute Qualifiers: Encounter type: initial encounter Fracture type: closed Assessment and Plan: Post op day 1 ORIF left IT fracture with short gamma nail Current anti-coagulation protocol with Lovenox bridge to Coumadin for VTE prophylaxis. PT/OT services to improve independent function. Discharge Planning per Case Management. Hospital Course Summary Disclaimer: The visit summary below is not to be considered part of the above Progress Note. Hospital Course: 04/11/18 Admit, inpatient status under the hospitalist service. Dr. Jefferson has been consulted -- hopeful for surgery tomorrow if INR <1.5. NPO at [place]. INR 2.72 -- will give Vit K 5 mg x1. Hold Coumadin. VENITA -- NS @ 100 mL/hr. Monitor for fluid overload. Hold Bumex, lisinopril. Reduce evening dose of gabapentin to 600 mg based on CrCl of 50. Monitor hgb; high risk for needing transfusion d/t chronic anemia. Leukocytosis -- poss. stress rxn. Monitor blood sugars. Check A1c. Hold insulin since he's NPO. Pain control -- Dilaudid 0.5 mg q2h PRN. (Note pt itches with morphine - could try administering with Benadryl). Advanced directives: spouse is DPOA. Requests DNR. 04/12/18 Surgery to be postponed until tomorrow due to ongoing elevated INR. Vit K again today. SCr is slightly down today- continue IVF, hold diuretics. Check UA- appears to have significant UTI on exam, and ongoing leukocytosis. High risk for MDR organisms given chronic catheter- hold Keflex. Start cefepime. Tailor abx appropriately when culture comes back. Mild hyponatremia- continue IVF for now and observe. BP is trending up. Continue metoprolol. Holding JEMIMA due to elevated SCr, hyperkalemia Add low dose Norvasc and monito. Continue supportive home meds as appropriate. Repeat labs in AM. 04/13/18 Underwent ORIF left intertrochanteric hip fracture under the care of Dr. Jefferson without complication. Will work on weaning down oxygen as able. Patient does not utilize oxygen at home chronically. Urine culture is positive for Gram negative for growth. However, this is a chronic suprapubic catheter. At this time, we will continue with treatment utilizing cefepime for antimicrobial coverage. Given mild leukocytosis. Blood pressure is better controlled. started of norvasc yesterday. Home JEMIMA inhibitor on hold day. Monitor for fluid retention. Given he is receiving IV fluids and home diuretic is on hold Monitor daily labs to follow renal function, electrolytes and blood counts. does note she is not sure he will require significant rehabilitation. Given that he does not ambulate or stand at baseline
[2018-04-14] MEDS: AMLODIPINE 2.5 MG TABLET PO SCH (08:58)
[2018-04-14] MEDS: GABAPENTIN 300 MG CAPSULE PO SCH ×2 (08:58→20:19)
[2018-04-14] MEDS: CITALOPRAM 20 MG TABLET PO SCH (08:58)
[2018-04-14] MEDS: TOLTERODINE 2 MG TABLET PO SCH ×2 (08:58→20:19)
[2018-04-14] MEDS: TAMSULOSIN 0.4 MG CAPSULE PO SCH (08:58)
[2018-04-14] MEDS: VENLAFAXINE 75 MG TABLET PO SCH (08:58)
[2018-04-14] MEDS: DOCUSATE SODIUM 100 MG CAPSULE PO SCH ×2 (08:58→20:20)
[2018-04-14] MEDS: BACLOFEN 10 MG TABLET PO SCH ×3 (08:58→20:20)
[2018-04-14] MEDS: POLYETHYL GLYCOL 3350 17gm PACKET PO SCH (08:59)
[2018-04-14] MEDS: VALBENAZINE TOSYLATE 80 MG PO SCH (08:59)
[2018-04-14] MEDS: FLUTICASONE NASAL SPRAY 50mcg EA NOSTRIL SCH ×2 (08:59→20:20)
--- NOTE | 2018-04-14 09:22 | Progress Note ---
- Date 04/14/18 Subjective: Tyron began having diarrhea this morning. Per nurses he doesn't engage in conversation but will answer questions when directly asked. He was mumbling when I saw him and very difficult to understand. He was moaning as he was turned in bed to be cleaned up; he did not answer my questions. RN reports that he received 1 dose of Haldol last night for pulling at his lines/tubes. Objective Vital signs: Temperature 98.2 F 04/14/18 08:53 Pulse Rate 69 04/14/18 08:53 Respiratory Rate 16 04/14/18 08:57 Blood Pressure 153/72 H 04/14/18 08:53 Pulse Oximetry 98 04/14/18 08:53 Height/Weight/BMI: Height 1.65 m Weight 116.9 kg Body Mass Index 40.3 - Constitutional Present: well nourished, well developed, obese - Routine HEENT Exam Head: Present: normocephalic Eye: Present: PERRL. Absent: conjunctival icterus, scleral injection ENT: Present: mucous membranes moist - Routine Respiratory Exam Present: CTA bilaterally - Routine Cardiovascular Exam Present: RRR, S1, S2 - Routine Abdominal Exam Present: soft, normoactive bowel sounds, non distended, non tender - Routine Exam Comments: Suprapubic catheter - Routine Extremities Exam Present: edema (B/L pedal edema) - Routine Skin Exam Present: dry, warm Comments: dressings to left hip/leg c/d/i - Routine Neurological Exam Present: alert. Absent: moving all extremities (paraplegic - T3) - Routine Psychiatric Exam Present: cooperative Results - Labs CBC & Chem 7: 04/14/18 04:10 04/14/18 04:10 Microbiology Results: Microbiology 04/12/18 11:31 Urine, Suprapubic Urine Culture - Final Morganella moganii [facility] Assessment and Plan (1) Intertrochanteric fracture of left hip Current visit: Yes Status: Acute Assessment and Plan: Assessment Left hip IT fracture VENITA with creatinine of 2.1, baseline 1.2-1.5 Coagulopathy d/t Coumadin Hyperkalemia, POA - resolved Leukocytosis, POA - resolved ABLA on chronic anemia Hyponatremia, chronic T3 paraplegia Atrial fibrillation HTN dyslipidemia Hypothyroidism GERD Asthma Depression Morbid obesity BMI >40 Postoperative anemia Postoperative delirium Plan 04/14/18 UC +GNR; continue cefepime. WBC normal, afebrile. VENITA resolved, BUN 19, creatinine 1.2. Weight is trending up, and he's up >4L fluid. Will stop IVF and restart home dose of Bumex now. BP increasing - resume lisinopril tomorrow. Continue Norvasc, Lopressor. Mild ABLA; hgb 9.6 Loose stool this am - RN holding laxatives/stool softeners. Continue Coumadin per pharmacy; Lovenox as INR still subtherapeutic. Continue Haldol as needed. Discussed with nurses. DVT Prophylaxis: Lovenox GI Prophylaxis: Omeprazole Resuscitation Status: Do Not Resuscitate - Physician Narrative Physician: Ramona Fleming MD Narrative: Date: 04/14/18 Time: 1115 I have independently evaluated and examined this patient. I reviewed the chart, the patient's history, and the ROLLER HELPER/PA's documented findings as above. We discussed and formulated the assessment and plan as above with additions as below: Mr. Silver was slightly more alert at the time of my assessment responding "yeah " and no to some questions-he denied dyspnea or nausea and reported fatigue. The patient is drowsy but respirations were nonlabored and airflow was good anteriorly Abdomen soft, obese, nontender, and bowel sounds are present; superficial abrasion covered with duoderm right foot Interval development of mild anemia postoperatively-hemoglobin 9.6; electrolytes unremarkable. PT initiated today although current lethargy preclude active patient involvement. Nonambulatory at baseline. Continue supportive care. Hospital Course Summary Disclaimer: The visit summary below is not to be considered part of the above Progress Note. Hospital Course: 04/11/18 Admit, inpatient status under the hospitalist service. Dr. Jefferson has been consulted -- hopeful for surgery tomorrow if INR <1.5. NPO at [place]. INR 2.72 -- will give Vit K 5 mg x1. Hold Coumadin. VENITA -- NS @ 100 mL/hr. Monitor for fluid overload. Hold Bumex, lisinopril. Reduce evening dose of gabapentin to 600 mg based on CrCl of 50. Monitor hgb; high risk for needing transfusion d/t chronic anemia. Leukocytosis -- poss. stress rxn. Monitor blood sugars. Check A1c. Hold insulin since he's NPO. Pain control -- Dilaudid 0.5 mg q2h PRN. (Note pt itches with morphine - could try administering with Benadryl). Advanced directives: spouse is DPOA. Requests DNR. 04/12/18 Surgery to be postponed until tomorrow due to ongoing elevated INR. Vit K again today. SCr is slightly down today- continue IVF, hold diuretics. Check UA- appears to have significant UTI on exam, and ongoing leukocytosis. High risk for MDR organisms given chronic catheter- hold Keflex. Start cefepime. Tailor abx appropriately when culture comes back. Mild hyponatremia- continue IVF for now and observe. BP is trending up. Continue metoprolol. Holding JEMIMA due to elevated SCr, hyperkalemia Add low dose Norvasc and monito. Continue supportive home meds as appropriate. Repeat labs in AM. 04/13/18 Underwent ORIF left intertrochanteric hip fracture under the care of Dr. Jefferson without complication. Will work on weaning down oxygen as able. Patient does not utilize oxygen at home chronically. Urine culture is positive for Gram negative for growth. However, this is a chronic suprapubic catheter. At this time, we will continue with treatment utilizing cefepime for antimicrobial coverage. Given mild leukocytosis. Blood pressure is better controlled. started of norvasc yesterday. Home JEMIMA inhibitor on hold day. Monitor for fluid retention. Given he is receiving IV fluids and home diuretic is on hold does note she is not sure he will require significant rehabilitation. Given that he does not ambulate or stand at baseline 04/14/18 UC +GNR; continue cefepime. WBC normal, afebrile. VENITA resolved, BUN 19, creatinine 1.2. Weight is trending up, and he's up >4L fluid. Will stop IVF and restart home dose of Bumex now. BP increasing - resume lisinopril tomorrow. Continue Norvasc & BB. Mild ABLA; hgb 9.6 Loose stool this am - RN holding laxatives/stool softeners. Continue Coumadin per pharmacy; Lovenox as INR still subtherapeutic.
[2018-04-14] MEDS: BUMETANIDE 0.5 MG TABLET PO SCH (10:11)
[2018-04-14] MEDS: SALINE FLUSH 10ml SYRINGE IVF PRN (11:33)
[2018-04-14] MEDS: CEFTRIAXONE 1 G in NS 100 ML IV SCH (11:55)
[2018-04-14] MEDS ORDERED: NS FLUSH BAG 500ml IV PRN (11:55)
[2018-04-14] MEDS ORDERED: WARFARIN 5 MG TABLET PO SCH (12:00)
[2018-04-14] MEDS ORDERED: SENNOSIDES 8.6 MG TABLET PO PRN (13:02)
--- NOTE | 2018-04-14 16:12 | Wound Care Progress Note ---
Wound Center Progress Note: Pt seen for wound consultation r/t injury on buttocks. Pt resting in bed, pain with turning for assessment. at bedside. Pt is routinely seen at the [facility] for tx of an open wound to the R dorsal foot. Pt was last seen at the clinic by Dr. Schwartz 03/28/18. Pt's was getting pt ready for his visit to the wound center when the lift they were using at home malfunctioned and pt fell to the floor. She was able to get him up and place him in his WC and she brought him to the Wound Clinic. Upon arrival to the clinic they were sent to the ED. Pt had a L hip IT FX which was repaired by Dr. Jefferson on 04/11/18. Nursing staff were concerned about sores on the pt's buttocks. Bilateral medial buttocks: skin intact, medium purple discoloration, non- blanchable. Able to palpate a slight ridge under the L medial buttock purple discoloration. Pt does a great deal of sitting in his WC at home. Pt's states they were not there before the fall, may have resulted from the fall. Wound tx plan: Continue to monitor closely, off load with regular repositioning.
[2018-04-14] MEDS: SIMVASTATIN 10 MG TABLET PO SCH (20:19)
[2018-04-14] MEDS: SENNOSIDES 8.6 MG TABLET PO SCH (20:19)
[2018-04-14] MEDS: ENOXAPARIN 40 MG/0.4 ML INJECTION SQ SCH (20:24)
[2018-04-15] MEDS: SALINE FLUSH 10ml SYRINGE IVF PRN ×2 (00:32→06:06)
[2018-04-15] MEDS: HYDROMORPHONE 2 MG/ML INJECTION IVP PRN (00:32)
[2018-04-15] MEDS: OMEPRAZOLE 20 MG CAPSULE PO SCH (06:03)
[2018-04-15] MEDS: NOZIN NASAL SWAB NAS SCH ×2 (06:03→13:15)
[2018-04-15] MEDS: LEVOTHYROXINE 50 MCG TABLET PO SCH (06:03)
[2018-04-15] MEDS: BUDESONIDE INH.SOLN 0.5mg/2ml NEB AEROSOL SCH (06:39)
[2018-04-15] MEDS: ALBUTEROL 2.5mg/3ml (0.083%) NEB AEROSOL PRN (06:39)
[2018-04-15] MEDS ORDERED: VENLAFAXINE 75 MG TABLET PO SCH (08:00)
--- NOTE | 2018-04-15 08:41 | Pharmacy Consult ---
Pharmacy Consult-Warfarin - Laboratory Information 04/11/18 04/11/18 04/11/18 16:00 16:00 16:00 Hgb 12.3 L Hct 36.5 L INR 2.72 H AST 27 ALT 20 Albumin 4.5 04/12/18 04/12/18 04/12/18 04:16 04:16 18:16 Hgb 11.8 L Hct 35.2 L INR 2.58 H 1.47 H AST ALT Albumin 04/13/18 04/13/18 04/13/18 04:30 04:30 14:58 Hgb 11.3 L Hct 34.0 L INR 1.06 AST ALT Albumin 4.1 04/14/18 04/14/18 04/15/18 04:10 04:10 04:10 Hgb 9.6 L D 9.6 L Hct 29.2 L D 28.5 L INR 1.10 AST ALT Albumin 04/15/18 04:10 Hgb Hct INR 1.12 AST ALT Albumin - Consult Information INR not in target range. Being covered with enoxaparin. Warfarin 5mg ordered at noon today. Thank you.
[2018-04-15] MEDS ORDERED: LISINOPRIL 5 MG TABLET PO SCH (09:00)
--- NOTE | 2018-04-15 09:35 | Orthopedic Progress Note ---
Date: Date: 04/15/18 Time: 926 Subjective/Severity of Illness: Mr. Silver is lying in bed during rounds this morning. He is off oxygen now. He is still sedated and has a hard time staying awake. He denies pain in his left hip, complains of back pain. He is on [place] TID for chronic back pain. Denies CP, SOA, nausea. Orthopedic Exam Vital signs: Temperature 97.5 F 04/14/18 02:57 Pulse Rate 74 04/14/18 03:00 Respiratory Rate 12 04/14/18 07:26 Blood Pressure 161/81 H 04/14/18 02:57 Pulse Oximetry 100 04/14/18 07:26 - Constitutional General Appearance: Present: alert, no acute distress, somnolent - Respiratory Exam Present: non-labored - Cardiovascular Exam Present: pedal pulses intact - Extremities Exam Present: edema (B/L pedal edema), pulses intact Comments: left lower extremity compartments soft, nontender, neuro intact - Dressing Dressing: dry, intact, no drainage - Lymphatic Lymphatic: Absent: adenopathy - Neurological Exam Present: intact to light touch, no deficits - Psychiatric Exam Present: alert, oriented - Labs Result Diagrams: 04/15/18 04:10 04/15/18 04:10 Abnormal lab results 04/15/18 04/15/18 Range/Units 04:10 04:10 RBC 3.08 L (4.50-5.90) M/MM3 Hgb 9.6 L (13.5-17.5) GM/DL Hct 28.5 L (41-53) % Glucose 116 H (75-110) MG/DL H & H 04/11/18 04/12/18 04/13/18 Range/Units 16:00 04:16 04:30 Hgb 12.3 L 11.8 L 11.3 L (13.5-17.5) GM/DL Hct 36.5 L 35.2 L 34.0 L (41-53) % 04/14/18 04/15/18 Range/Units 04:10 04:10 Hgb 9.6 L D 9.6 L (13.5-17.5) GM/DL Hct 29.2 L D 28.5 L (41-53) % Coagulation 04/11/18 04/12/18 04/12/18 Range/Units 16:00 04:16 18:16 INR 2.72 H 2.58 H 1.47 H (0.92-1.18) 04/13/18 04/14/18 04/15/18 Range/Units 14:58 04:10 04:10 INR 1.06 1.10 1.12 (0.92-1.18) Orthopedic Assessment and Plan (1) Intertrochanteric fracture of left hip Status: Acute Qualifiers: Encounter type: initial encounter Fracture type: closed Assessment and Plan: Post op day 2 ORIF left IT fracture with short gamma nail Current anti-coagulation protocol with Lovenox bridge to Coumadin for VTE prophylaxis. DC IV pain medications due to somnolence. Continue schedule [place] TID for chronic back pain. PT/OT services to improve independent function. Discharge Planning per Case Management. Anticipated discharge to [facility] today Follow up in Ortho clinic outpatient, appt scheduled Hospital Course Summary Disclaimer: The visit summary below is not to be considered part of the above Progress Note. Hospital Course: 04/11/18 Admit, inpatient status under the hospitalist service. Dr. Jefferson has been consulted -- hopeful for surgery tomorrow if INR <1.5. NPO at NE. INR 2.72 -- will give Vit K 5 mg x1. Hold Coumadin. VENITA -- NS @ 100 mL/hr. Monitor for fluid overload. Hold Bumex, lisinopril. Reduce evening dose of gabapentin to 600 mg based on CrCl of 50. Monitor hgb; high risk for needing transfusion d/t chronic anemia. Leukocytosis -- poss. stress rxn. Monitor blood sugars. Check A1c. Hold insulin since he's NPO. Pain control -- Dilaudid 0.5 mg q2h PRN. (Note pt itches with morphine - could try administering with Benadryl). Advanced directives: spouse is DPOA. Requests DNR. 04/12/18 Surgery to be postponed until tomorrow due to ongoing elevated INR. Vit K again today. SCr is slightly down today- continue IVF, hold diuretics. Check UA- appears to have significant UTI on exam, and ongoing leukocytosis. High risk for MDR organisms given chronic catheter- hold Keflex. Start cefepime. Tailor abx appropriately when culture comes back. Mild hyponatremia- continue IVF for now and observe. BP is trending up. Continue metoprolol. Holding JEMIMA due to elevated SCr, hyperkalemia Add low dose Norvasc and monito. Continue supportive home meds as appropriate. Repeat labs in AM. 04/13/18 Underwent ORIF left intertrochanteric hip fracture under the care of Dr. Jefferson without complication. Will work on weaning down oxygen as able. Patient does not utilize oxygen at home chronically. Urine culture is positive for Gram negative for growth. However, this is a chronic suprapubic catheter. At this time, we will continue with treatment utilizing cefepime for antimicrobial coverage. Given mild leukocytosis. Blood pressure is better controlled. started of norvasc yesterday. Home JEMIMA inhibitor on hold day. Monitor for fluid retention. Given he is receiving IV fluids and home diuretic is on hold does note she is not sure he will require significant rehabilitation. Given that he does not ambulate or stand at baseline 04/14/18 UC +GNR; continue cefepime. WBC normal, afebrile. VENITA resolved, BUN 19, creatinine 1.2. Weight is trending up, and he's up >4L fluid. Will stop IVF and restart home dose of Bumex now. BP increasing - resume lisinopril tomorrow. Continue Norvasc & BB. Mild ABLA; hgb 9.6 Loose stool this am - RN holding laxatives/stool softeners. Continue Coumadin per pharmacy; Lovenox as INR still subtherapeutic.
[2018-04-15] MEDS: CITALOPRAM 20 MG TABLET PO SCH (09:39)
[2018-04-15] MEDS: BUMETANIDE 0.5 MG TABLET PO SCH (09:39)
[2018-04-15] MEDS: TAMSULOSIN 0.4 MG CAPSULE PO SCH (09:39)
[2018-04-15] MEDS: POLYETHYL GLYCOL 3350 17gm PACKET PO SCH ×2 (09:39→13:26)
[2018-04-15] MEDS: GABAPENTIN 300 MG CAPSULE PO SCH (09:40)
[2018-04-15] MEDS: DOCUSATE SODIUM 100 MG CAPSULE PO SCH (09:40)
[2018-04-15] MEDS: BACLOFEN 10 MG TABLET PO SCH (09:40)
[2018-04-15] MEDS: AMLODIPINE 2.5 MG TABLET PO SCH (09:40)
[2018-04-15] MEDS: TOLTERODINE 2 MG TABLET PO SCH (09:41)
[2018-04-15] MEDS: FLUTICASONE NASAL SPRAY 50mcg EA NOSTRIL SCH (09:41)
[2018-04-15] MEDS: VALBENAZINE TOSYLATE 80 MG PO SCH (09:42)
--- NOTE | 2018-04-15 10:52 | Discharge Summary ---
Discharge Information Date of admission: 04/11/18 16:39 Anticipated date of discharge: 04/15/18 Attending Physician: Ramona Fleming MD Primary care physician: Rajinder Weiss Consults: 04/11/18 17:08 Physician Consult: Andrew Jefferson Reason For Exam: hip fx - Discharge Diagnosis (1) Intertrochanteric fracture of left hip Status: Acute S/P ORIF left IT fracture with short gamma nail placement 04/13/18, Dr. Jefferson. UTI with chronic indwelling suprapubic catheter - Morganshila hendersoni VENITA with creatinine of 2.1, baseline 1.2-1.5 - resolved. Coagulopathy due to coumadin Hyperkalemia, POA - resolved Leukocytosis, POA - resolved ABLA on chronic anemia Hyponatremia, chronic, resolved T3 paraplegia Atrial fibrillation Hypertension Dyslipidemia Hypothyroidism GERD Asthma Depression Morbid obesity BMI >40 Postoperative anemia Postoperative delirium Tardive dyskinesia reportedly from long-standing Reglan use - Procedures Procedures: DATE 04/13/2018 PREOPERATIVE DIAGNOSIS Left three-part intertrochanteric hip fracture. POSTOPERATIVE DIAGNOSIS Left three-part intertrochanteric hip fracture. PROCEDURE Open reduction, intramedullary fixation of left intertrochanteric hip fracture. SURGEON Andrew Jefferson MD TIP CEMENTER Monica Black APRN ANESTHESIA General COMPLICATIONS None EBL AND FLUIDS Please see Anesthetic records. DESCRIPTION OF PROCEDURE Mr. Silver and his left hip were identified and marked in the preoperative holding area. He was brought back to the operating suite and placed supine on the fracture table after he was placed under general anesthesia. Both feet were placed in well-padded traction boots. Left leg was placed into traction. Right leg was placed into extension without traction. The left lower extremity was pepped and draped in my normal sterile fashion. Time-out was performed. Fluoroscopic imaging was used throughout the case. Local anesthesia was used at every incision site. I started with a 3 cm incision proximal to the greater trochanter. The proximal femur was then opened over a guide frankie. I then passed a short gamma nail into the proximal femur. A lag screw was placed into a center-center location to the femoral head using the aiming arm over a guide frankie. The lag screw was then locked proximally. Aiming arm was then used to place a distal interlocking screw. Multiple fluoroscopic images were taken including live shots to ensure good fracture reduction and hardware placement. Aiming arm was then removed. All wounds were thoroughly irrigated before being closed in layers. Sterile dressings were placed. The patient was taken out of traction, the traction boots were removed. He was then allowed to awaken from general anesthesia and taken to the recovery room under the care of Anesthesia. He tolerated the procedure well. There were no complications. - Laboratory Labs: 04/11/2018 04/12/2018 04/13/2018 04/14/2018 04/15/2018 04/15/2018 16:00 4:16 4:30 4:10 4:10 4:10 WBC 12.9 H 12.1 H 11.3 H 8.5 8 RBC 3.95 L 3.82 L 3.66 L 3.12 L 3.08 L Hgb 12.3 L 11.8 L 11.3 L 9.6 L D 9.6 L Hct 36.5 L 35.2 L 34.0 L 29.2 L D 28.5 L MCV 92.4 92.1 92.9 93.6 92.5 MCH 31.1 30.9 30.9 30.8 31.2 MCHC 33.7 33.5 33.2 32.9 33.7 RDW Std Deviation 42.4 42.8 43.1 43.8 42.6 Plt Count 182 174 148 136 146 MPV 10.7 10.9 10.8 10.8 10.7 Immature Gran % (Auto) 0.2 0.2 0.2 Neut % (Auto) 50.6 53.8 59.3 Lymph % (Auto) 38.3 38.8 31.8 [place] % (Auto) 5.3 4.4 5.1 Eos % (Auto) 5.4 H 2.6 3.4 Baso % (Auto) 0.2 0.2 0.2 Neut # (Auto) 6.5 6.5 6.7 Lymph # (Auto) 5.0 H 4.7 3.6 [place] # (Auto) 0.7 0.5 0.6 Eos # (Auto) 0.7 H 0.3 0.4 Baso # (Auto) 0 0 0 Abs Immat Gran (auto) 0.03 0.03 0.02 INR 2.72 H 2.58 H 1.1 1.12 1.12 Turbidity < 20 < 20 < 20 < 20 < 20 Sodium 135 L 133 L 136 137 136 Potassium 5.2 H 5.1 H 4.8 4.4 3.9 Chloride 97 L 98 102 106 104 Carbon Dioxide 26 26 24 22 24 Anion Gap 12 9 10 9 8 BUN 28.0 H 30.0 H 24.0 H 19 17 Creatinine 2.1 H 1.9 H D 1.5 D 1.2 D 1.1 Estimated Creat Clear 73 GFR Calculation 31 35 46 60 66 BUN/Creatinine Ratio 13 16 16 16 16 Glucose 107 143 H 139 H 131 H 116 H Glucometer 163 158 Hemoglobin A1c 6.2 H 6.4 H Calculated Osmolality 266 264 268 268 265 Calcium 8.8 8.7 8.6 8.3 L 8.4 Phosphorus 3 Magnesium 2.4 H Total Bilirubin 0.5 Icterus Index < 2 < 2 < 2 < 2 < 2 AST 27 ALT 20 Alkaline Phosphatase 93 Total Protein 8.6 H Albumin 4.5 4.1 Globulin 4.1 H Albumin/Globulin Ratio 1.1 Specimen Hemolysis < 15 < 15 < 15 < 15 < 15 Ur Collection Type Urine, suprapubic Urine Color Yellow Urine Clarity Cloudy Urine pH 7 Ur Specific [place] 1.015 Urine Protein 1+ A Urine Glucose (UA) Negative Urine Ketones Negative Urine Occult Blood 3+ A Urine Nitrate Positive A Urine Bilirubin Negative Urine Urobilinogen 1 Ur Leukocyte Esterase 3+ Urine RBC 50-200 H Urine WBC 50-200 H Ur Squamous Epith Cells None seen Triple Phos Crystals Few Amorphous Sediment Many Urine Bacteria 4+ H Ur Culture Indicated? Cult reflexed &setup - Microbiology Microbiology 04/12/18 11:31 Urine, Suprapubic Urine Culture - Final Morganella moganii [facility] [place] SENSITIVITY Amoxicillin/Ca R Ampicillin R Ampicillin/Sulbactam R Cefazolin R Cefepime S Ceftriaxone S Ciprofloxacin S Gentamicin S Levofloxacin S Nitrofurantoin R Piperacillin/Tazobactam S Tobramycin S Trimethoprim/Sulfamethoxazole S - Radiology Radiology: Date of Exam: 04/11/18 Type of Exam(s): XR hip LT min 2V Reason for Exam(s): dropped from lift Findings: There is a comminuted intertrochanteric femur fracture of the proximal left femur with cephalad and medial displacement of the lesser trochanter. There is moderate diffuse osteopenia. No dislocation. Impression: Comminuted intertrochanteric proximal left femur fracture. Date of Exam: 04/11/18 Type of Exam(s): XR pelvis 1-2V Reason for Exam(s): dropped from lift Findings: There is a comminuted intertrochanteric femur fracture of the proximal left femur with cephalad and medial displacement of the lesser trochanter. No definite dislocation. The patient has had a posterior frankie and pedicle screw fusion of the lower lumbar spine into the sacrum. The right hip is unremarkable. There is moderate diffuse osteopenia. Impression: Comminuted intertrochanteric femur fracture of the proximal left femur. No definite pelvic fracture. Date of Exam: 04/11/18 Type of Exam(s): XR chest 1V Reason for Exam(s): hip fracture, preop Findings: There are scattered megaly and probably vascular congestion without overt CHF. No pleural effusion. The patient has had fusion of the lower cervical spine and posterior frankie and pedicle screw fusion of the thoracolumbar spine. There is a left subclavian dual-lead pacemaker in place. No pneumothorax. Impression: Cardiomegaly and pulmonary vascular congestion without overt CHF. Date of Exam: 04/13/18 Type of Exam(s): RF hip LT 2 view Reason for Exam(s): ORIF LEFT HIP Findings: Intraoperative spot views of the left hip demonstrate intraoperative placement of a left dynamic hip screw with intramedullary frankie. The alignment appears near-anatomic with the lesser trochanter displaced superiorly and medially. Impression: Near-anatomic alignment status post ORIF of the left hip. History of Present Illness HPI: Tyron Silver is a 73 y/o paraplegic male who lives at home with his and great-granddaughter. He has been paraplegic from the T3 level since 2012. He is able to activate his muscles minimally in his lower extremities and has sensation. He is nonambulatory. As his was placing him in the lift today in preparation for a wound care appointment for a healing right foot wound, the legs to the lift crossed, causing him to fall and she fell on top of him. He did not strike his head/lose consciousness. Further he's been in his typical state of health up until this accident at home. He occasionally has some mild SOA secondary to asthma, but denies any recent fevers/chills, cough/congestion, chest pain, palpitations, headaches, dizziness, abdominal pain, n/v/d/c, or recent problems with his suprapubic catheter. He has some scratches on his arms and legs from their cat, and tends to bleed/bruise easily since he's on Coumadin for A-fib. He was taken to [facility] [place] ED, where he was diagnosed with a left hip IT fracture. In addition, labs showed an VENITA with cr of 2.1 (baseline 1.2- 1.5), hyperkalemia (5.2), hyponatremia (135 - reports chronic low sodium). He has chronic anemia and follows with Dr. Nowak -- hgb was 12.3. WBC was elevated at 12.9. INR was therapeutic at 2.72. Supine CXR demonstrated vascular congestion. EKG showed v-paced rhythm. Dr. Jefferson and the hospitalist service were both contacted, and the patient was admitted to inpatient status with consultation placed to ortho service. LOS is expected to exceed 2 overnights. Objective Vital signs: Temperature 97 F 04/15/18 08:00 Pulse Rate 92 04/15/18 08:00 Respiratory Rate 17 07/27/18 08:00 Blood Pressure 157/90 H 04/15/18 08:00 Pulse Oximetry 93 04/15/18 10:29 Rhythm: Normal Sinus Rhythm Height/Weight/BMI: Height 5 ft 5 in Weight 257 lb 11.526 oz Body Mass Index 40.3 Comments: Patient is resting in bed and awakens easily with soft voice stimuli. Complains of pain to left hip 6/10. - Constitutional Present: no acute distress, well nourished, well developed, cooperative - Routine HEENT Exam Head: Present: normocephalic, atraumatic Eye: Present: PERRL. Absent: conjunctival icterus ENT: Present: mucous membranes moist, oropharynx clear - Routine Respiratory Exam Present: CTA bilaterally. Absent: respiratory distress, wheezes - Routine Cardiovascular Exam Present: RRR, S1, S2 - Routine Abdominal Exam Present: soft, normoactive bowel sounds, distended - Routine Extremities Exam Present: edema (trace), pulses intact - Routine Musculoskeletal Exam Musculoskeletal: Present: no clubbing or cyanosis - Routine Skin Exam Present: dry, warm Comments: Afebrile. Blister noted to buttock - meriplex bandage placed. Bandage to dorsal right foot is clean, dry and intact. - Routine Neurological Exam Present: alert, oriented X3, hearing grossly intact, normal speech - Routine Lymphatic Exam Lymphatic: Absent: lymphedema - Routine Psychiatric Exam Present: cooperative Hospital Course This is a general summary of the patient's hospital course. For more details refer to the complete medical record. Hospital course: 04/11/18 Patient was admitted to inpatient status under the hospitalist service. Dr. Jefferson was consulted and discussed surgical intervention with ORIF of left IT hip fracture with the patient and family including risks and complications including possible need for further surgeries if fixation fails. Plan for surgery tomorrow, 04/12/18, if medically cleared and INR <1.5. INR 2.72 on admission and patient was given Vitamin K 5mg x 1 dose. Coumadin was placed on hold. VENITA noted on admission. NS at 100cc/hr initiated. Home Bumex and lisinopril were placed on hold given VENITA and home evening dose of gabapentin was reduced from 900mg to 600mg based on decreased CrCl of 50. Leukocytosis noted and suspected due to stress reaction. Afebrile. Insulins held due to NPO status. Pain control with Dilaudid. 04/12/18 Surgery to be postponed until tomorrow, 04/13/18, due to ongoing elevated INR. Repeat Vitamin K dosing. SCr trending down with IVF. Home lisinopril and Bumex remain on hold due to VENITA. Chronic indwelling suprapubic catheter in place. UA revealed UTI and persistent leukocytosis. Remains afebrile. Cefepime IV initiated for antimicrobial coverage. Blood pressure elevated despite continuation of home metoprolol. Norvasc 2.5mg daily added for additional blood pressure control. 04/13/18 INR last evening improved to 1.47. Patient was taken for surgery this morning, status post ORIF left femur neck intertrochanteric fracture performed by Dr. Jefferson. Required post op oxygen which was able to be weaned down. Patient does not utilize oxygen at home chronically. Urine culture is positive for Gram negative for growth. Cefepime continued for antimicrobial coverage. Blood pressure improved with initiation of Norvasc 2.5mg daily. Lisinopril and Bumex remain on hold given VENITA. SCr trending down and improving. INR last evening improved to 1.47. At this point, patient was medically optimized for surgery. Patient was taken for surgery this morning, status post ORIF left femur neck intertrochanteric fracture performed by Dr. Jefferson. Patient will be monitored closely, supplemental oxygen as needed. Continue IV cefepime. Cautious IV fluids , will monitor intake and output, daily weights. Once patient is more alert and able to follow commands, patient needs physical therapy evaluation and may require short-term inpatient rehabilitation. 04/14/18 POD #1 - Urine culture revealed Morganella moganii with multidrug resistance. Cefepime (day 2) changed to Rocephin based on sensitivities for a planned treatment course of a total of 5 days. Leukocytosis resolved and remains afebrile. VENITA resolved, BUN 19, creatinine 1.2. Weight is trending up, and he's up >4L fluid. IVF discontinued and home Bumex resolved. Will plan to restart home lisinopril tomorrow. Hemoglobin stable at 9.6. Loose stools this morning. Will hold bowel motivation. Coumadin restarted per pharmacy with bridge Lovenox as INR still subtherapeutic. PT/OT to initiate therapies though patient is nonambulatory at baseline. Patient seen by wound care for evaluation of left medial buttock discoloration which appeared following his fall. Wound care recommended to monitor closely and off load with regular repositioning. 04/15/18 POD #2 - Plan to discharge today to [facility] per case management. Patient to follow up with ortho on 05/04/18 at 2pm - appointment scheduled per ortho. Patient remains afebrile with resolution of leukocytosis. Day 2 of Rocephin. Will switch to oral vantin x 1 day on discharge to complete antibiotic treatment course. VENITA resolved. Will resume home medications and return gabapentin to home dosing of 300mg QAM and 900mg QPM. Lisinopril resumed today. Will discontinue Norvasc which was started during hospitalization as home lisinopril was unable to be given due to renal function. Continue warfarin with bridge Lovenox until therapeutic. Patient will need INR recheck on 04/18/18. INR 1.12 today. Meriplex dressing to blister of buttock and monitor closely. Encourage incentive spirometry. Time spent with patient: discharge greater than 30 minutes Resuscitation Status: Do Not Resuscitate Discharge Plan - Discharge Disposition Discharge Date: 04/15/18 Disposition: 03 To SNU Not CAC (SNF) *Condition: Stable Reason For Visit (Visit label in EMR): hip fracture - Discharge Medications *Discharge Medications: New Albuterol Neb (0.083%) [Proventil Neb (0.083%)] 2.5 mg AEROSOL RTQID PRN #30 each PRN Reason: Shortness Of Air Enoxaparin Sodium [Lovenox] 40 mg SQ Q24H #7 syringe Sennosides [Senna Lax] 17.2 mg PO DAILY PRN tab PRN Reason: Constipation Cefpodoxime [Vantin] 200 mg PO BID #2 tab LORazepam [Ativan] 0.5 mg PO Q6H PRN #15 tab PRN Reason: Anxiety Continue PEG 3350 17gm PACKET [Miralax] 17 gm PO DAILY Multivitamin [One Daily] 1 each PO DAILY Baclofen [Lioresal] 10 mg PO TID #90 tab Bumetanide Tab [Bumex 0.5 mg Tab] 0.5 mg PO DAILY #30 tab Citalopram [Celexa] 20 mg PO DAILY #30 tab Fluticasone HFA [Flovent Hfa 110 mcg] 1 puff INH BID #1 inhaler Fluticasone Nasal Tasley [Flonase] 1 spray ADONAY BID #1 bottle Gabapentin 300 mg PO DAILY #60 cap Hydrocodone/APAP 7.5/325 [Jeffrey 7.5/325] 1 tab PO TID PRN #30 tab PRN Reason: Pain Insulin Aspart [NovoLOG] 1 - 2 unit SQ AC #1 vial Levothyroxine Tab [Synthroid] 50 mcg PO ACB #30 tab Lisinopril [Prinivil] 5 mg PO DAILY #30 tab Metoprolol Tartrate [Lopressor] 25 mg PO BIDWM #60 tab Omeprazole [Prilosec] 20 mg PO DAILY #30 cap Tamsulosin HCl [Flomax] 0.4 mg PO DAILY #30 cap Tolterodine 2 mg [Detrol] 2 mg PO BID #30 tab Valbenazine Tosylate [Ingrezza] 80 mg PO DAILY #30 cap Venlafaxine [Effexor] 75 mg PO DAILY #30 tab Warfarin Sodium 4 mg PO 6XW #30 tab CephALEXin [Keflex 250 mg] 250 mg PO DAILY #30 cap Gabapentin [Neurontin] 900 mg PO HS #30 tab Simvastatin [Zocor] 10 mg PO HS #30 tab Warfarin Sodium 2 mg PO MO #5 tab Discontinued Gabapentin [Neurontin] 900 mg PO HS CephALEXin [Keflex 250 mg] 250 mg PO DAILY - Discharge Packet/Instructions *Diet: Resume normal diet as tolerated *Activity: Continue the exercises you were given in the hospital three times a day. Your therapist will provide you with a home therapy program prior to your hospital discharge. As you feel stronger, increase the number of repetitions you do in each session. Please check with us before you swim, use a whirlpool, drive or ride a bicycle *Pain Management/Treatment: Ice packs may be used, and will also help with the pain. *Wound Care: In most cases, a Mepilex dressing will be placed at the time of surgery. This dressing will not need to be covered while showering. Leave dressing in place until your follow-up appointment as long as it remains clean, dry and stuck down well around the edges. Call your Doctor if you encounter a problem with your dressing. Please avoid submerging your incision until it is completely healed, once the Mepilex dressing is removed. This includes bathtubs , swimming pools, and hot tubs. DO NOT USE ALCOHOL, PEROXIDE, OR OINTMENTS of any kind on your incision. Additional Instructions: Patient to follow up with PCP within the next 1-2 weeks for post-hospialization check. Patient was treated for a UTI with IV cefepime and IV ceftriaxone x 4 days during hospitalization. Patient to complete treatment course with Vantin po BID x 1 day (begin and end on 04/16/18) . Monitor closely for signs of fever, chills or other signs of infection. Continue home medications as directed. Patient to return to [facility] [place] [place] on 04/18/18 for recheck labs including INR, CBC and BMP. Continue Lovenox SQ until INR between 2.0-3.0. Monitor bruising and blister to left medial buttock and off load pressure with regular repositioning. *Expected Signs/Symptoms: Some swelling around the incision, as well as in your feet and legs is normal. To help with this, elevate your feet on a footstool when sitting in a chair, and do the ankle pumps and circles whenever you are sitting still. Muscle action helps to move collected fluid out of the tissues and improve circulation. Ice packs may be used, and will also help with the pain. Report any persistent swelling, calf tenderness, increase in pain, or pain in the calf with warmth, or redness to your doctor. *Notify Physician if: Report any complications to my office immmediately. This includes excessive bleeding, wound breakdown, redness around the wound, uncontrolled pain, or fever over 101 on 3 different measurements. Eat a balanced diet and get plenty of rest. *During Business Hours Contact: If you have any questions or concerns, please call during regular office hours ([phone]). *After Business Hours Contact: If you have any problems or need to reach a physician after hours or on the weekend please call the hospital's main number [phone] to have your physician paged. *Pending Lab/Results: No Pending Lab Outpatient Orders: BMP - Basic Metabolic - [facility] [place] Time Frame: 04/18/18, Facility: [facility], Location: Laboratory [facility] [place] [place] CBC w Auto [id number] Time Frame: 04/18/18, Facility: [facility], Location: Laboratory [facility] [place] [place] INR - [facility] Time Frame: 04/18/18, Facility: [facility], Location: Laboratory [place] - Referrals/Follow Up *Referrals/Follow Up: Monica Black APRN [Advanced Practice Nurse] - 05/04/18 2:00 pm - Patient Handouts Patient Handouts: ORIF of Hip Fracture (DC), [facility]ny General Instructions, [facility] Ortho Postop Instructions - Dismissal Complete Discharge Instructions are:: Complete Physician Narrative - Narrative Physician: Ramona Fleming MD Attestation Narrative: Date: 04/15/18 Time: 1410 I have independently evaluated and examined this patient. I reviewed the chart, the patient's history, and the EXTRACT OPERATOR/PA's documented findings as above. We discussed and formulated the assessment and plan as above with additions as below: Mr. Silver was seen earlier today with his at bedside. He was much more alert today than when I evaluated him yesterday and nursing reports that he was able to ask for pain medication overnight and did not experience any significant confusion or agitation as he had experienced immediately postoperatively. Patient reports eating well this morning and minimal hip pain but some discomfort of the buttocks. Some diarrhea was reported yesterday. NAD, alert; respirations nonlabored with diminished breath sounds throughout Irregular rhythm Hemoglobin stable at 9.6, INR remains subtherapeutic at 1.12. Stable for discharge to correction at [facility]; reassess laboratory data early next week. Medications reviewed in detail with patient's .
[2018-04-15] MEDS: CEFTRIAXONE 1 G in NS 100 ML IV SCH (11:15)
[2018-04-15 11:49] VITALS: BP 154/80; PULSE 83; RESP 16; TEMP 97.3; O2SAT 96
[2018-04-15] MEDS ORDERED: WARFARIN 5 MG TABLET PO SCH (12:00)
--- NOTE | 2018-04-15 12:08 | Extended Care Facility Orders ---
Admission Orders Allergies/Adverse Reactions: Allergies Horse/Equine Containing Products Allergy (Unknown, Verified 04/11/18 14:56) meprobamate Allergy (Unknown, Verified 04/11/18 14:56) adhesive Allergy (Verified 04/14/18 13:23) Rash Latex, Natural Rubber Allergy (Verified 04/12/18 17:58) morphine Allergy (Verified 04/14/18 13:23) Itching tramadol Adverse Reaction (Unknown, Verified 04/11/18 14:56) HIVES amitriptyline Adverse Reaction (Verified 04/11/18 14:56) Admitting Diagnosis: left hip fracture; T3 paraplegia Admitting Physician: Ramona Fleming MD Attending Physician: Ramona Fleming MD Code Status: Do Not Resuscitate Anticiapted Length of Stay: 30 days or less Rehab Potential: fair Rehab Prognosis: fair Diet: Consistent Carbohydrate Diet [DIET] Calorie Level: 1800 Wound/Incision Care: Mepilex dressing right foot and buttocks-change every 3 days or when necessary; surgical site left hip with Tegaderm dressing which is to stay on pending orthopedic follow-up. May use Facility Protocol or Standing Orders: Yes May have flu vaccine: Yes Evaluations/Treatment: PT, OT [facility] Certification: I certify that SNF services are required to be given on an Inpatient basis because of the patients need for [facility] care on a continuing basis for the condition(s) for which he/she received inpatient hospital services prior to his/her transfer to the SNF. SNF inpatient care is necessary for the following reasons Indication for [facility]: Wound Care/Assessment, Diabetic Assessment, Med Admininistration, Assess Anticoagulation Therapy, Other (strengthening) - Additional Information In Event of Arrest: Do Not Start CPR Resident is Aware of Diagnosis: Yes Referrals: Monica Black APRN [Advanced Practice Nurse] - 05/04/18 2:00 pm Additional Orders: Chronic suprapubic catheter; nonambulatory at baseline- requires lift for transfers. Completes treatment for UTI with Vantin/ Cefpodoxime tomorrow; on cephalexin chronically for UTI prophylaxis. INR on (dx-atrial fibrillation)-warfarin resumed home dose postoperatively after being reversed for surgery. INR may still be low on 04/18. Please check CBC and BMP on 04/18 with diagnoses of postoperative anemia and diabetes mellitus/ hypertension. Accu-Cheks fasting and two-hour after meals.
[2018-04-15] MEDS ORDERED: BISACODYL 10 MG SUPPOSITORY RECTALLY SCH (20:00)
== END 2018-04-15 13:50 | DRG 481 ==
LOC: ED 14:21 → EDHOLD 16:39 → SUATTDRO 16:39 → SRG 17:25
PROVIDERS: ADMIT Internal Medicine; ATTEND Internal Medicine